=== PATIENT | female | born 1950 | race Caucasian/White ===

== ENCOUNTER 2024-02-06 18:29 | Inpatient (IN) ==
[2024-02-06 19:11] LABS: Basophils # (auto) 0.04 K/uL (0.00-0.20); Basophils % (auto) 0.4 %; Eosinophils # (auto) 0.36 K/uL (0.00-0.50); Eosinophils % (auto) 3.4 %; Hematocrit (blood only) 39.6 % (37.0-47.0); Hemoglobin 13.5 g/dl (12.0-16.0); Immature Granulocytes # (auto) 0.05 K/uL (0.01-0.20); Immature Granulocytes % (auto) 0.5 %; Lymphocytes # (auto) 1.52 K/uL (1.20-3.40); Lymphocytes % (auto) 14.4 %; Mean Corpuscular Hemoglobin 32.1 pg (25.0-34.0); Mean Corpuscular Hgb Conc 34.1 g/dL (32.0-36.0); Mean Corpuscular Volume 94.3 fL (80.0-100.0); Mean Platelet Volume 9.2 fL (9.4-12.4); Monocytes # (auto) 0.76 K/uL (0.11-0.59); Monocytes % (auto) 7.2 %; Neutrophils % (auto) 74.1 %; Platelet Count 380 K/uL (130-400); RDW Coefficient of Variation 12.5 % (11.5-14.5); RDW Standard Deviation 43.1 fL (36.4-46.3); White Blood Count 10.53 K/ul (4.8-10.8)
[2024-02-06 19:28] LABS: Albumin Globulin Ratio 1.1 (0.9-2); Albumin Level 4.5 gm/dl (3.4-5.0); BUN Creatinine Ratio 20.8 (10-20); Bilirubin,Total 0.4 mg/dl (0.2-1.0); Calcium 10.8 mg/dl (8.6-10.3); Creatinine Clr Calc Pharmacy 16.3 ml/min; Potassium 4.4 mmol/L (3.5-5.1); Total Protein 8.5 gm/dl (6.0-8.3)
[2024-02-06 19:34] LABS: Troponin I High Sensitivity 14.8 pg/ml (0-14)
[2024-02-06 19:38] LABS: Partial Thromboplastin Time 26 Seconds (21-31); Prothrombin Time 10.4 Seconds (9.0-12.0)
--- NOTE | 2024-02-06 21:18 | Emergency Department Note ---
Impression & Plan Chest pain, Elevated troponin ED Provider Note NAME: ZACH FLOOD AGE: 73 SEX: F : 1950 ARRIVES VIA: Walk-In INFORMANT: Patient, Family member ED PROVIDER(S): Jalen Lau MD CHIEF COMPLAINT: Chest pain MEDICAL DECISION MAKING: Patient presents due to concern for chest pains. IV was established and blood work was obtained. Patient did have an EKG and troponin obtained but given the patient's symptoms and prior history of EGD patient was initially treated with famotidine and Maalox. Patient's blood work minimal white count hemoglobin and platelet count. The patient's kidney function with creatinine 1.49. Troponin is elevated 14.8. Patient's chest x-ray shows likely emphysematous changes. EKG without signs of overt ischemia. Patient did feel improved after the GI medications; however, given the patient's elevated troponin and age he is not low risk and would benefit from further evaluation monitoring and potential testing. Patient was ordered a full dose aspirin after review of the patient's troponin. I did speak with the on-call hospitalist Dr. Mars and the patient was admitted to medicine service. Discussion w/ other healthcare providers: Dr. Mars inpatient medicine service Prior /Outside records reviewed: None Differential diagnosis: Cardiac ischemia, aortic dissection, pulmonary embolism, pneumothorax, pneumonia, pericarditis, myocarditis, GERD, cholecystitis, pancreatitis, musculoskeletal, as well as other pathologies were considered. Diagnostics, as interpreted by me: ECG: Sinus, rate of 69, normal intervals, normal axis no ST elevations T wave version in V3. Cardiac monitoring: An order was placed for continuous cardiac monitoring. The monitor shows a rate of 72 with sinus rhythm. Patient was placed on pulse oximetry Medical decision rules: Heart score Imaging studies: I informally interpreted the patient's chest x-ray does not show obvious pneumonia with formal report to follow. HPI: Patient presents due to concern for chest pains. The patient states this began several days ago. No reported exertional symptoms but centralized symptoms will move up into the chest. Patient denies any history of reflux but has had prior issues with getting "meat stuck in my throat." Patient states that she did have a prior endoscopy and did have a dilatation procedure. Patient states that she is swallowing appropriately at this time. The patient does not take anything for symptoms at home. No reported vomiting. Patient denies any leg swelling or calf pain no history of DVT or PE. PAST MEDICAL HISTORY: See Below PAST SURGICAL HISTORY: See Below SOCIAL HISTORY: See Below HOME MEDICATIONS: See Below ALLERGIES: See Below VITALS: See Below PHYSICAL EXAMINATION: GENERAL: NAD, non-toxic. Thin in appearance. EYE EXAM: Normal conjunctiva. PERRL, no anisocoria and EOM's grossly intact w/o pain. OROPHARYNX: Moist mucus membranes, grossly normal dentition. NECK: Trachea midline, no stridor. Supple, no nuchal rigidity, no adenopathy, non-tender. No signs of meningismus. FROM of the neck with good chin to chest and neck extension. LUNGS: Clear to auscultation. Normal chest wall mechanics. HEART: NSR, no MRG. ABDOMEN: Abdomen soft, non-tender, no masses, no rebound or guarding. BACK: No CVA TTP. SKIN: No rashes and no bruising. UPPER EXTREMITIES: Upper extremities are grossly normal. LOWER EXTREMITIES: Grossly normal, no edema. Negative Homans' sign bilaterally. NEURO EXAM: A&O x3, cranial nerves II-XII grossly intact, normal speech, moves all 4 extremities. Past Med/Surg History Problem List (Updated 02/08/24 @ 16:06 by Jalen Lau MD) Elevated troponin (Acute) Chest pain (Acute) Severe protein-calorie malnutrition Acute metabolic encephalopathy UTI (urinary tract infection) History of migraine headaches Substernal chest pain Elevated troponin Acute kidney injury ANJEL positive Abnormal chest CT Multiple pulmonary nodules Bronchiectasis Pulmonary nodule Abnormal chest x-ray Asthma-COPD overlap syndrome COPD (chronic obstructive pulmonary disease) Pulmonary hypertension COPD with emphysema Exertional shortness of breath Dysphagia GERD (gastroesophageal reflux disease) Food impaction of esophagus (Acute) Social History Smoking Status: Never smoker Tobacco Type: Cigarettes Hx Alcohol Use: Yes Alcohol type: wine Hx Substance Use: No Preferred Language: Khmer Communication Ability: Impaired Air Conditioning Supervisor Required: No Beliefs That Will Affect Care: None Current Living Situation: Alone Current Living Situation Comment: Patient stated that passed 3 years ago and she has lived alone Other Information That Helps Us Care for You: No Feels Safe at Home: Yes Safety Concerns: Feels Safe At This Time Assistive Devices: Denture - Upper, Denture - Lower, Glasses and Hearing Aid - Right Allergies Allergies Allergy/AdvReac Type Severity Reaction Status Date / Time ciprofloxacin [From Cipro] Allergy Rash Verified 11/10/23 13:52 Penicillins Allergy Rash Verified 11/10/23 13:52 Sulfa (Sulfonamide Allergy Rash Verified 11/10/23 13:52 Antibiotics) Home Meds Home Medications Medication Instructions Recorded Confirmed metoprolol succinate 100 mg 100 mg PO DAILY 03/16/21 11/10/23 tablet,extended release 24 hr sumatriptan succinate 100 mg tablet 0 mg PO .COMPLEX PRN Migraine 03/16/21 11/10/23 Headache nitrofurantoin 100 mg PO DAILY 08/02/23 11/10/23 monohydrate/macrocrystals 100 mg capsule (Macrobid) Previous Rx's Medication Instructions Recorded Flutter Valve #1 ea 11/15/23 budesonide 160 mcg-glycopyr 9 2 inh inhalation BID #10.7 grams 11/15/23 mcg-formot 4.8 mcg/actuation HFA inhaler (Breztri Aerosphere) doxycycline hyclate 100 mg capsule 100 mg PO BID 5 days #10 caps 11/15/23 guaifenesin 600 mg tablet, 600 mg PO BID PRN congestion #60 11/15/23 extended release 12 hr (Mucinex) tabs Results & Data (ED) Vital Signs Vital Signs - 24 hr 02/06/24 18:38 02/06/24 20:29 02/06/24 20:29 Temperature 36.5 C 36.7 C Temperature Source Oral Oral Pulse Rate 72 63 Pulse Rate [Apical] 69 Pulse Rhythm Regular Pulse Strength Normal Respiratory Rate 18 16 Respiratory Effort / Characteristics Non-Labored Spontaneous Respiratory Depth Normal Respiratory Pattern Regular Blood Pressure 157/83 H Blood Pressure [Left Arm] 152/92 H Blood Pressure Mean 107 Blood Pressure Mean [Left Arm] 112 Blood Pressure Position Sitting Pulse Oximetry 100 100 Oxygen Delivery Method Room Air Room Air Sepsis Recent Fever Within 48 Hours No Sepsis New/Unexplained Change in Mental Status No Sepsis Action Taken by Nursing No Action Required Home Medications Current Medication List: was personally reviewed by me Laboratory Data Attestation: I reviewed the patient's lab results. 02/07/24 05:30 02/08/24 05:49 Lab Results 02/06/24 02/07/24 02/07/24 Range/Units 18:58 05:30 08:30 WBC 10.53 8.91 (4.8-10.8) K/ul RBC 4.20 3.67 L (4.20-5.40) M/uL Hgb 13.5 11.7 L (12.0-16.0) g/dl Hct 39.6 35.2 L (37.0-47.0) % MCV 94.3 95.9 (80.0-100.0) fL MCH 32.1 31.9 (25.0-34.0) pg MCHC 34.1 33.2 (32.0-36.0) g/dL RDW Std Deviation 43.1 44.2 (36.4-46.3) fL RDW Coeff of Michael 12.5 12.6 (11.5-14.5) % Plt Count 380 323 (130-400) K/uL MPV 9.2 L 9.1 L (9.4-12.4) fL Immature Gran % (Auto) 0.5 1.0 % Neut % (Auto) 74.1 70.7 % Lymph % (Auto) 14.4 15.7 % [place] % (Auto) 7.2 9.2 % Eos % (Auto) 3.4 2.8 % Baso % (Auto) 0.4 0.6 % Neut # (Auto) 7.80 H 6.30 (1.40-6.50) K/uL Lymph # (Auto) 1.52 1.40 (1.20-3.40) K/uL [place] # (Auto) 0.76 H 0.82 H (0.11-0.59) K/uL Eos # (Auto) 0.36 0.25 (0.00-0.50) K/uL Baso # (Auto) 0.04 0.05 (0.00-0.20) K/uL Immature Gran # (Auto) 0.05 0.09 (0.01-0.20) K/uL PT 10.4 (9.0-12.0) Seconds INR 1.0 (0.9-1.1) APTT 26 (21-31) Seconds PTT Ratio 1.0 Sodium 138 137 (136-145) mmol/L Potassium 4.4 3.7 (3.5-5.1) mmol/L Chloride 102 103 (98-107) mmol/L Carbon Dioxide 26 22 (21-32) mmol/L Anion Gap 10 12 H (3-11) BUN 31 H 29 H (6-23) mg/dl Creatinine 1.49 H 1.36 H (0.6-1.2) mg/dl Est Cr Clr Drug Dosing 16.3 17.5 ml/min eGFR 36.41 40.62 BUN/Creatinine Ratio 20.8 H 21.3 H (10-20) Glucose 109 H 121 H (70-99(Fasting)) mg/dl Calcium 10.8 H 9.5 (8.6-10.3) mg/dl Phosphorus 2.0 L (2.5-4.9) mg/dl Magnesium 1.9 (1.7-2.4) mg/dl Total Bilirubin 0.4 (0.2-1.0) mg/dl AST 15 (13-39) U/L ALT 8 (7-52) U/L Alkaline Phosphatase 97 (34-104) U/L Troponin I High Sens 14.8 H 13.5 (0-14) pg/ml Total Protein 8.5 H (6.0-8.3) gm/dl Albumin 4.5 4.0 (3.4-5.0) gm/dl Globulin 4.0 (2.5-4.0) gm/dl Albumin/Globulin Ratio 1.1 (0.9-2) Urine Color Yellow Urine Appearance Cloudy A (Clear) Urine pH 5.0 (4.5-7.5) Ur Specific [place] 1.017 (1.000-1.030) Urine Protein 1+ H (Negative) Urine Glucose (UA) Negative (Negative) Urine Ketones Trace H (Negative) Urine Blood Trace H (Negative) Urine Nitrite Positive A (Negative) Urine Bilirubin Negative (Negative) Urine Urobilinogen Negative (Negative) Ur Leukocyte Esterase 2+ H (Negative) Urine WBC (Auto) 21-50 H (0-5) /hpf Urine RBC (Auto) 0-2 (0-2) /hpf U Hyaline Cast (Auto) 3-5 H (0-2) /lpf U Epithel Cells (Auto) 0-2 (0-2) /hpf Urine Bacteria (Auto) 4+ H (None Seen) Administered Medications Fluticasone Furoate (Fluticasone Furoate 200mcg 14 Puffs/Inhaler) 1 puffs INH DAILY JANET Stop: 03/08/24 08:59 Last Admin: 02/08/24 09:55 Dose: 1 puffs Documented By: Admin: 02/07/24 09:15 Dose: 1 puffs Documented By: AM Ceftriaxone Sodium (Rocephin) 1,000 mg in 50 mls @ 100 mls/hr IV Q24H JANET Stop: 02/12/24 09:29 Last Infusion: 02/08/24 12:50 Dose: Infused Documented By: Admin: 02/08/24 11:26 Dose: 100 mls/hr Documented By: Infusion: 02/07/24 10:45 Dose: Infused Documented By: Admin: 02/07/24 10:10 Dose: 100 mls/hr Documented By: AM Metoprolol Succinate (Metoprolol Succ 50mg Ext Rel Tab) 100 mg PO DAILY JANET Stop: 03/08/24 08:59 Last Admin: 02/08/24 09:55 Dose: Not Given Documented By: Admin: 02/07/24 09:11 Dose: 100 mg Documented By: AM Olanzapine (Olanzapine 2.5 Mg Tab) 2.5 mg PO HS JANET Stop: 03/08/24 20:59 Last Admin: 02/07/24 21:50 Dose: 2.5 mg Documented By: [facility] Pantoprazole Sodium (Pantoprazole 40 Mg Tab) 40 mg PO QAM JANET Stop: 03/08/24 08:59 Last Admin: 02/08/24 09:55 Dose: 40 mg Documented By: Admin: 02/07/24 09:12 Dose: 40 mg Documented By: AM Umeclidinium/Vilanterol (Umeclidinium/Vilanterol 62.5/25mcg 7 Puffs/Inhaler) 1 puffs INH DAILY JANET Stop: 03/08/24 08:59 Last Admin: 02/08/24 09:55 Dose: 1 puffs Documented By: Admin: 02/07/24 09:15 Dose: 1 puffs Documented By: AM Discontinued Medications Al Hydrox/Mg Hydrox/Simethicone (Aluminum/Magnesium Susp 30 Ml Udc) 30 ml PO NOW STA Stop: 02/06/24 21:17 Last Admin: 02/06/24 21:21 Dose: 30 ml Documented By: LISA Haloperidol Lactate (Haloperidol Lactate 5 Mg/Ml 1 Ml Vial) 2 mg IM NOW STA Stop: 02/07/24 12:09 Last Admin: 02/07/24 12:15 Dose: 2 mg Documented By: AM Haloperidol Lactate (Haloperidol Lactate 5 Mg/Ml 1 Ml Vial) 2 mg IM NOW STA Stop: 02/07/24 12:50 Last Admin: 02/07/24 12:50 Dose: 2 mg Documented By: AM Famotidine (Pepcid 20mg Iv Push) 20 mg in 5 mls @ 2.5 mls/min IV NOW STA Stop: 02/06/24 21:17 Last Admin: 02/06/24 21:21 Dose: 2.5 mls/min Documented By: LISA Sodium Chloride (Nss) 1,000 mls @ 125 mls/hr IV .Q8H JANET Stop: 02/07/24 06:59 Last Infusion: 02/07/24 12:24 Dose: Infused Documented By: Admin: 02/07/24 04:05 Dose: 125 mls/hr Documented By: [facility] Sodium Chloride (Nss) 500 mls @ 80 mls/hr IV .Q6H15M JANET Stop: 02/07/24 14:14 Last Admin: 02/07/24 13:51 Dose: Not Given Documented By: AM Pantoprazole Sodium (Pantoprazole 40 Mg Tab) 40 mg PO NOW STA Stop: 02/06/24 22:56 Last Admin: 02/06/24 23:28 Dose: 40 mg Documented By: LISA Risperidone (Risperidone 0.25 Mg Tab) 0.25 mg PO ONE ONE Stop: 02/07/24 07:49 Last Admin: 02/07/24 09:57 Dose: 0.25 mg Documented By: AM Imaging Data Radiologist's Impression: Chest X-Ray 02/06/24 18:43 Exam(s): XR CXR 1 VIEW EXAM: XR Chest, 1 View CLINICAL HISTORY: : CHEST PAIN VOMITING X 3 DAYS DYSPHAGIA WITH SOLIDS LIKE MEAT X 3 DAYS TECHNIQUE: Frontal view of the chest. COMPARISON: June 10, 2023 FINDINGS: Lungs: The lungs are hyperinflated with sparse in coarse interstitial markings throughout both lungs consistent with emphysema. There are scattered bilateral upper lobe scarring, unchanged. No new infiltrate identified. Pleural space: Unremarkable. No pneumothorax. Heart: Unremarkable. No cardiomegaly. Mediastinum: Unremarkable. Normal mediastinal contour. Bones/joints: Unremarkable. No acute fracture. Upper abdomen: There is no pneumoperitoneum under the diaphragm. IMPRESSION: The lungs are hyperinflated with sparse in coarse interstitial markings throughout both lungs consistent with emphysema. There are scattered bilateral upper lobe scarring, unchanged. No new infiltrate identified. Electronically signed by: Ryder Adhikari MD 02/06/24 20:32 PM Discharge Plan Visit Data Chief Complaint: Chest Pain Stated Complaint: CHEST PAIN, SOB ED Provider: Jalen Lau Discharge Problem: Chest pain, Elevated troponin Patient Disposition: Admitted As Inpatient Discharge Instructions Interventions: ED Discharge Assessment Last Done: 02/06/24 23:49 Discharge Problem: Chest pain Qualifiers: Chest pain type: unspecified Qualified Code(s): R07.9 - Chest pain, unspecified
[2024-02-06] MEDS: FAMOTIDINE 20MG IV PUSH 20 MG/5 ML SYR IV STA (21:21)
[2024-02-06] MEDS: ALUMINUM/MAGNESIUM SUSP 30 ML UDC PO STA (21:21)
[2024-02-06] MEDS ORDERED: ALUMINUM/MAGNESIUM SUSP 30 ML UDC PO PRN (22:55)
--- NOTE | 2024-02-06 22:57 | History & Physical Report ---
Date of Service February 06, 2024 Assessment & Plan (1) Substernal chest pain: (2) Acute kidney injury: (3) Elevated troponin: (4) Multiple pulmonary nodules: (5) Asthma-COPD overlap syndrome: (6) GERD (gastroesophageal reflux disease): (7) History of migraine headaches: Plan Epigastric to substernal chest pain/elevated troponin/GERD- Patient reports symptoms resolved with administration of Maalox Elevated troponin/hypertension- The patient will be admitted to telemetry for serial cardiac enzymes, serial EKG's, cardiac rhythm monitoring Initial troponin 14.8, with follow-up pending, likely demand ischemia in the setting of acute kidney injury EKG shows normal sinus rhythm at [address]-T changes Continue metoprolol succinate 100 mg daily Acute kidney injury- Creatinine 1.49, with base 0.86 Placed on NSS at 125 mL/h x 1 L Repeat laboratories in the a.m. GERD/dysphagia- Symptoms were significantly improved with the addition of Maalox and famotidine IV Add pantoprazole 40 mg p.o. now and then every morning Maalox every 6 hours as needed Protein calorie malnutrition- Recommend addition of nutritional shakes at least twice a day History of Present Illness Chief Complaint: The patient presents to the emergency department with epigastric to substernal chest discomfort persistent and worsening over the past 6 days. Primary Care Provider: Kelly Mcfadden DO The patient is a 73-year-old female with a past medical history including multiple pulmonary nodules, asthma-COPD overlap syndrome, pulmonary hypertension, dysphagia, GERD, food impaction of esophagus, hypertension and migraine. She presents to the emergency department with 6 days of persistently worsening epigastric to substernal chest discomfort. She was given Maalox in the emergency department along with famotidine IV. She reports that her symptoms have completely resolved with the liquid that she took in the ED. She is referred for evaluation for admission due to chest discomfort symptoms, and elevated troponin and elevated creatinine. Allergies Allergy/AdvReac Type Severity Reaction Status Date / Time ciprofloxacin [From Cipro] Allergy Rash Verified 11/10/23 13:52 Penicillins Allergy Rash Verified 11/10/23 13:52 Sulfa (Sulfonamide Allergy Rash Verified 11/10/23 13:52 Antibiotics) Home Medications Medication Instructions Recorded Confirmed Type metoprolol succinate 100 mg 100 mg PO DAILY 03/16/21 11/10/23 History tablet,extended release 24 hr sumatriptan succinate 100 mg tablet 0 mg PO .COMPLEX PRN Migraine 03/16/21 11/10/23 History Headache nitrofurantoin 100 mg PO DAILY 08/02/23 11/10/23 History monohydrate/macrocrystals 100 mg capsule (Macrobid) Flutter Valve #1 ea 11/15/23 11/15/23 Rx budesonide 160 mcg-glycopyr 9 2 inh inhalation BID #10.7 grams 11/15/23 11/15/23 Rx mcg-formot 4.8 mcg/actuation HFA inhaler (Breztri Aerosphere) doxycycline hyclate 100 mg capsule 100 mg PO BID 5 days #10 caps 11/15/23 Rx guaifenesin 600 mg tablet, 600 mg PO BID PRN congestion #60 11/15/23 11/15/23 Rx extended release 12 hr (Mucinex) tabs Past Med/Surg History Problem List (Updated 02/07/24 @ 00:28 by Chepe Mckeon MD) History of migraine headaches Substernal chest pain Elevated troponin Acute kidney injury ANJEL positive Abnormal chest CT Multiple pulmonary nodules Bronchiectasis Pulmonary nodule Abnormal chest x-ray Asthma-COPD overlap syndrome COPD (chronic obstructive pulmonary disease) Pulmonary hypertension COPD with emphysema Exertional shortness of breath Dysphagia GERD (gastroesophageal reflux disease) Food impaction of esophagus (Acute) Social History Smoking Status: Never smoker Tobacco Type: Cigarettes Preferred Language: Guyanese Feels Safe at Home: Yes Review of Systems Review of Systems: The patient denies palpitations, shortness of breath, dyspnea on exertion, cough, lower extremity swelling, sore throat, fevers, chills, sweats, nausea, vomiting, diarrhea , constipation, abdominal pain, pelvic pain, blood in urine or stool, dysuria, urinary frequency or urgency, lightheadedness, dizziness, headache, memory loss, loss of consciousness, rash, abnormal bruising or bleeding, imbalance, focal or generalized weakness, numbness or tingling in arms or legs, generalized arthralgias or myalgias, back or neck pain, or night sweats. The review of systems is otherwise negative other than for that already noted above, and at least 10 systems have been reviewed. Physical Exam Physical Exam: The patient is awake, alert and oriented 3, very thin appearing, normocephalic and atraumatic, lying in bed and in no acute distress. HEENT--PERRL, EOMI, mucous membranes and oropharynx mildly dry. Neck--supple. No JVD. No bruits. Thyroid normal, trachea midline, no adenopathy. Heart--normal S1 and S2. No murmurs, rubs or gallops. Lungs--clear bilaterally, no respiratory distress, no accessory muscle use. Abdomen--normal bowel sounds and soft. Nontender. Nondistended, no hernias or masses, no organomegaly. Extremities-- No edema. Dermatologic--normal skin turgor, normal color, no abnormal lymph nodes, no rash. Neurologic--cranial nerves II through XII grossly intact. Rheumatologic--normal range of motion. Psychiatric--normal affect. Results & Data Results & Data Vital Signs (Past 12 Hours) Vital Signs Temp Pulse Pulse Resp BP BP Pulse Ox 02/06/24 22:00 63 16 133/78 100 02/06/24 20:29 63 02/06/24 20:29 36.7 C 69 16 152/92 H 100 02/06/24 18:38 36.5 C 72 18 157/83 H 100 O2 Del Method 02/06/24 22:00 Room Air 02/06/24 20:29 02/06/24 20:29 Room Air 02/06/24 18:38 Room Air Laboratory Results Laboratory Results WBC 10.53 K/ul (4.8-10.8) 02/06/24 18:58 RBC 4.20 M/uL (4.20-5.40) 02/06/24 18:58 Hgb 13.5 g/dl (12.0-16.0) 02/06/24 18:58 Hct 39.6 % (37.0-47.0) 02/06/24 18:58 MCV 94.3 fL (80.0-100.0) 02/06/24 18:58 MCH 32.1 pg (25.0-34.0) 02/06/24 18:58 MCHC 34.1 g/dL (32.0-36.0) 02/06/24 18:58 RDW Std Deviation 43.1 fL (36.4-46.3) 02/06/24 18:58 RDW Coeff of Michael 12.5 % (11.5-14.5) 02/06/24 18:58 Plt Count 380 K/uL (130-400) 02/06/24 18:58 MPV 9.2 fL (9.4-12.4) L 02/06/24 18:58 Immature Gran % (Auto) 0.5 % 02/06/24 18:58 Neut % (Auto) 74.1 % 02/06/24 18:58 Lymph % (Auto) 14.4 % 02/06/24 18:58 [place] % (Auto) 7.2 % 02/06/24 18:58 Eos % (Auto) 3.4 % 02/06/24 18:58 Baso % (Auto) 0.4 % 02/06/24 18:58 Neut # (Auto) 7.80 K/uL (1.40-6.50) H 02/06/24 18:58 Lymph # (Auto) 1.52 K/uL (1.20-3.40) 02/06/24 18:58 [place] # (Auto) 0.76 K/uL (0.11-0.59) H 02/06/24 18:58 Eos # (Auto) 0.36 K/uL (0.00-0.50) 02/06/24 18:58 Baso # (Auto) 0.04 K/uL (0.00-0.20) 02/06/24 18:58 Immature Gran # (Auto) 0.05 K/uL (0.01-0.20) 02/06/24 18:58 PT 10.4 Seconds (9.0-12.0) 02/06/24 18:58 INR 1.0 (0.9-1.1) 02/06/24 18:58 APTT 26 Seconds (21-31) 02/06/24 18:58 PTT Ratio 1.0 02/06/24 18:58 Sodium 138 mmol/L (136-145) 02/06/24 18:58 Potassium 4.4 mmol/L (3.5-5.1) 02/06/24 18:58 Chloride 102 mmol/L (98-107) 02/06/24 18:58 Carbon Dioxide 26 mmol/L (21-32) 02/06/24 18:58 Anion Gap 10 (3-11) 02/06/24 18:58 BUN 31 mg/dl (6-23) H 02/06/24 18:58 Creatinine 1.49 mg/dl (0.6-1.2) H 02/06/24 18:58 Est Cr Clr Drug Dosing 16.3 ml/min 02/06/24 18:58 eGFR 36.41 02/06/24 18:58 BUN/Creatinine Ratio 20.8 (10-20) H 02/06/24 18:58 Glucose 109 mg/dl (70-99(Fasting)) H 02/06/24 18:58 Calcium 10.8 mg/dl (8.6-10.3) H 02/06/24 18:58 Total Bilirubin 0.4 mg/dl (0.2-1.0) 02/06/24 18:58 AST 15 U/L (13-39) 02/06/24 18:58 ALT 8 U/L (7-52) 02/06/24 18:58 Alkaline Phosphatase 97 U/L (34-104) 02/06/24 18:58 Troponin I High Sens 14.8 pg/ml (0-14) H 02/06/24 18:58 Total Protein 8.5 gm/dl (6.0-8.3) H 02/06/24 18:58 Albumin 4.5 gm/dl (3.4-5.0) 02/06/24 18:58 Globulin 4.0 gm/dl (2.5-4.0) 02/06/24 18:58 Albumin/Globulin Ratio 1.1 (0.9-2) 02/06/24 18:58 Code Status & VTE Plan Code Status Full code VTE Prophylaxis Plan VTE Prophylaxis will be ordered: Yes PG Care Time/CCT Total # of Minutes Spent Total Time Spent with Patient: Total time spent is greater than 50% in coordination of care (as documented) at patient's floor/unit and/or counseling patient: Coding Level of Care Code 41307 INT INP/OBS CARE 3/75MIN Diagnoses Substernal chest pain R07.2 Acute kidney injury N17.9 Elevated troponin R79.89 Multiple pulmonary nodules R91.8 Asthma-COPD overlap syndrome J44.89 GERD (gastroesophageal reflux disease) K21.9 History of migraine headaches Z86.69
[2024-02-06] MEDS: PANTOprazole 40 MG TAB PO STA (23:28)
[2024-02-07] MEDS ORDERED: SUMAtriptan succinate 100 MG TAB PO PRN (00:51)
[2024-02-07] MEDS: SODIUM CHLORIDE 0.9% 1,000 ML IV SCH (04:05)
[2024-02-07 06:08] LABS: Basophils # (auto) 0.05 K/uL (0.00-0.20); Basophils % (auto) 0.6 %; Eosinophils # (auto) 0.25 K/uL (0.00-0.50); Eosinophils % (auto) 2.8 %; Hematocrit (blood only) 35.2 % (37.0-47.0); Hemoglobin 11.7 g/dl (12.0-16.0); Immature Granulocytes # (auto) 0.09 K/uL (0.01-0.20); Lymphocytes % (auto) 15.7 %; Mean Corpuscular Hemoglobin 31.9 pg (25.0-34.0); Mean Corpuscular Hgb Conc 33.2 g/dL (32.0-36.0); Mean Corpuscular Volume 95.9 fL (80.0-100.0); Mean Platelet Volume 9.1 fL (9.4-12.4); Monocytes # (auto) 0.82 K/uL (0.11-0.59); Monocytes % (auto) 9.2 %; Neutrophils % (auto) 70.7 %; Platelet Count 323 K/uL (130-400); RDW Coefficient of Variation 12.6 % (11.5-14.5); RDW Standard Deviation 44.2 fL (36.4-46.3); Red Blood Count 3.67 M/uL (4.20-5.40); White Blood Count 8.91 K/ul (4.8-10.8)
[2024-02-07 06:22] LABS: BUN Creatinine Ratio 21.3 (10-20); Calcium 9.5 mg/dl (8.6-10.3); Creatinine Clr Calc Pharmacy 17.5 ml/min; Magnesium 1.9 mg/dl (1.7-2.4); Potassium 3.7 mmol/L (3.5-5.1)
[2024-02-07 06:30] LABS: Troponin I High Sensitivity 13.5 pg/ml (0-14)
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
[2024-02-07 08:56] LABS: Appearance Urine Cloudy (Clear); Bacteria Urine Automated 4+ (None Seen); Bilirubin Urine Negative (Negative); Blood Urine Trace (Negative); Color Urine Yellow; Epithelial Cell Urine Auto 0-2 /hpf (0-2); Glucose Urine UA Negative (Negative); Ketones Urine Trace (Negative); Leukocyte Esterase Urine 2+ (Negative); Nitrite Urine Positive (Negative); Protein Urine 1+ (Negative); RBC Urine Automated 0-2 /hpf (0-2); Specific Gravity Urine 1.017 (1.000-1.030); Urobilinogen Urine Negative (Negative); WBC Urine Automated 21-50 /hpf (0-5)
[2024-02-07] MEDS: METOPROLOL SUCC 50MG EXT REL TAB PO SCH (09:11)
[2024-02-07] MEDS: PANTOprazole 40 MG TAB PO SCH (09:12)
[2024-02-07] MEDS: UMECLIDINIUM/VILANTEROL 62.5/25MCG 7 PUFFS/INHALER INH SCH (09:15)
[2024-02-07] MEDS: FLUTICASONE FUROATE 200MCG 14 PUFFS/INHALER INH SCH (09:15)
[2024-02-07] MEDS: risperiDONE 0.25 MG TAB PO ONE (09:57)
[2024-02-07] MEDS: cefTRIAXone SODIUM 1,000 MG/50 ML BAG IV SCH (10:10)
[2024-02-07] MEDS: HALOPERIDOL LACTATE 5 MG/ML 1 ML VIAL IM STA ×2 (12:15→12:50)
[2024-02-07] MEDS ORDERED: HALOPERIDOL LACTATE 5 MG/ML 1 ML VIAL IM PRN ×2 (12:50→17:52)
[2024-02-07] MEDS ORDERED: LORazepam 2 MG/1 ML VIAL IV PRN (12:50)
--- NOTE | 2024-02-07 12:55 | Hospitalist Progress Note ---
Date of Service February 07, 2024 Assessment & Plan (1) Acute metabolic encephalopathy: Plan: based on the patient's son's account she likely has an underlying dementia. current altered MS likely due to UTI. she was extremely agitated earlier today, combative, pulling at IVs, attempting to hit staff, etc. this necessitated the use of restraints, multiple doses of antipsychotic, etc. fortunately, as the day went on, her agitation subsided; she remained confused, but we were able to remove the soft limb restraints late in the day. will schedule zyprexa 2.5mg at HS with haldol IM prn for refractory agitation. (2) UTI (urinary tract infection): Plan: u/a highly suspicious for such. start rocephin 1gm daily. await culture. (3) Substernal chest pain: Plan: has not complained of such throughout the day today. HS troponin scantly elevated at admission. by report her pain subsided in the ER following GERD meds (Maalox and famotidine IV). noted a prior history of food impaction in her record. monitor. (4) Acute kidney injury: Plan: peak Cr 1.49. trending down s/p IV fluids overnight. repeat BMP am. (5) Elevated troponin: Plan: scant elevation of 14.8 (just above upper cut-off). this is unlikely to represent ACS. likely myocardial demand ischemia in setting of #2. (6) Multiple pulmonary nodules: Plan: prior chest CT with such. has seen outpatient pulmonary for this. (7) Asthma-COPD overlap syndrome: Plan: no flare at this time (8) GERD (gastroesophageal reflux disease): Plan: cont PPI daily (9) History of migraine headaches: Plan: none at the present time (10) Severe protein-calorie malnutrition: Plan: BMI only 12.5 very poor appetite per son appetite loss likely due to underlying dementia; can't exclude other causes (pulmonary disease, etc) check nutritional labs, TSH, etc in am Plan change observation status to full admission status danielle Ro updated at bedside today Admission and Anticipated Discharge Date Admission Date: February 06, 2024 Subjective saw patient twice today first visit was this AM by report had eaten a good breakfast patient became increasingly more confused and agitated as the morning went on risperdal 0.25mg po x 1 given with little improvement in symptoms pt's son was visiting late morning patient became increasingly more upset, wanting to get out of bed, take her monitor leads off, etc. I had ordered 2mg of haldol IM x 1 when I came to the floor to see Mrs Augustin she was out of her room with 3 staff members trying to gently guide her back to her room she had gotten the haldol about 10 minutes prior she was screaming and yelling, resisting staff to return to her room we ultimately got her back to her room and administered an additional 2mg of IM haldol we placed her in b/l soft limb restraints as patient was grabbing staff members arms/hands, trying to bite staff members, and was kicking her legs & attempting to hit staff members after the additional haldol and placement of soft limb restraints on her arms/wrists Mrs Augustin calmed down a staff member stayed with her at bedside as I ordered 1:1 observation patient continued to calm down through the afternoon she ultimately ate dinner this evening I visited her a 2nd time late in the day - she was resting in bed with eyes closed a staff member was present at bedside patient briefly woke up - was much more calm, cooperative, even smiled still confused, but very calm I had spoken with the pt's son, Jayjay, early afternoon he has been living with Mrs Augustin he reports 1-2 years of progressive memory loss he also reports that she has poor appetite and has lost weight over time she has been resistant to various interventions at her home she continues to drive a car Review of Systems Review of Systems: Unobtainable due to cognitive status Physical Exam Physical Exam: gen - very thin, cachectic, agitated, confused, yelling mouth - MMM neck - no JVD heart - RRR, s1 s2 lungs - CTA b/l abd - soft NT ND BS+ ext - thin, pulses feet 2+ b/l psych - agitated, confused, oriented to person only Results & Data Results & Data Vital Signs (Past 12 Hours) Vital Signs Temp Pulse Pulse Resp BP Pulse Ox O2 Del Method 02/07/24 11:50 36.6 C 67 17 119/65 96 Room Air 02/07/24 08:02 78 02/07/24 08:00 36.7 C 77 18 140/76 97 Room Air 02/07/24 07:40 76 02/07/24 04:56 36.7 C 73 18 113/70 95 Room Air Laboratory Results Laboratory Results - last 24 hr 02/07/24 02/07/24 05:30 08:30 WBC 8.91 RBC 3.67 L Hgb 11.7 L Hct 35.2 L MCV 95.9 MCH 31.9 MCHC 33.2 RDW Std Deviation 44.2 RDW Coeff of Michael 12.6 Plt Count 323 MPV 9.1 L Immature Gran % (Auto) 1.0 Neut % (Auto) 70.7 Lymph % (Auto) 15.7 Ida % (Auto) 9.2 Eos % (Auto) 2.8 Baso % (Auto) 0.6 Neut # (Auto) 6.30 Lymph # (Auto) 1.40 Ida # (Auto) 0.82 H Eos # (Auto) 0.25 Baso # (Auto) 0.05 Immature Gran # (Auto) 0.09 Sodium 137 Potassium 3.7 Chloride 103 Carbon Dioxide 22 Anion Gap 12 H BUN 29 H Creatinine 1.36 H Est Cr Clr Drug Dosing 17.5 eGFR 40.62 BUN/Creatinine Ratio 21.3 H Glucose 121 H Calcium 9.5 Phosphorus 2.0 L Magnesium 1.9 Troponin I High Sens 13.5 Albumin 4.0 Urine Color Yellow Urine Appearance Cloudy A Urine pH 5.0 Ur Specific [place] 1.017 Urine Protein 1+ H Urine Glucose (UA) Negative Urine Ketones Trace H Urine Blood Trace H Urine Nitrite Positive A Urine Bilirubin Negative Urine Urobilinogen Negative Ur Leukocyte Esterase 2+ H Urine WBC (Auto) 21-50 H Urine RBC (Auto) 0-2 U Hyaline Cast (Auto) 3-5 H U Epithel Cells (Auto) 0-2 Urine Bacteria (Auto) 4+ H PG Care Time/CCT Total # of Minutes Spent Total Time Spent with Patient: Total time spent is greater than 50% in coordination of care (as documented) at patient's floor/unit and/or counseling patient: Coding Level of Care Code 39485 SUB INP/OBS CARE 3/50MIN Diagnoses Acute metabolic encephalopathy G93.41 UTI (urinary tract infection) N39.0 Substernal chest pain R07.2 Acute kidney injury N17.9 Elevated troponin R79.89 Multiple pulmonary nodules R91.8 Asthma-COPD overlap syndrome J44.89 GERD (gastroesophageal reflux disease) K21.9 History of migraine headaches Z86.69 Severe protein-calorie malnutrition E43
[2024-02-07] MEDS: SODIUM CHLORIDE 0.9% 500 ML IV SCH (13:51)
--- NOTE | 2024-02-07 14:17 | Electrocardiogram Report ---
Test Reason : Blood Pressure : */* mmHG Vent. Rate : 69 BPM Atrial Rate : 69 BPM P-R Int : 100 ms QRS Dur : 68 ms QT Int : 380 ms P-R-T Axes : 86 81 77 degrees QTcB Int : 407 ms Sinus rhythm with short PA Otherwise normal ECG No previous ECGs available Confirmed by Jose Emmanuel ([id number]) on 02/07/2024 2:17:21 PM Referred By: Confirmed By: Jose Emmanuel
--- NOTE | 2024-02-07 17:10 | XRay Report ---
Exam(s): XR CXR 1 VIEW EXAM: XR Chest, 1 View CLINICAL HISTORY: : CHEST PAIN VOMITING X 3 DAYS DYSPHAGIA WITH SOLIDS LIKE MEAT X 3 DAYS TECHNIQUE: Frontal view of the chest. COMPARISON: June 10, 2023 FINDINGS: Lungs: The lungs are hyperinflated with sparse in coarse interstitial markings throughout both lungs consistent with emphysema. There are scattered bilateral upper lobe scarring, unchanged. No new infiltrate identified. Pleural space: Unremarkable. No pneumothorax. Heart: Unremarkable. No cardiomegaly. Mediastinum: Unremarkable. Normal mediastinal contour. Bones/joints: Unremarkable. No acute fracture. Upper abdomen: There is no pneumoperitoneum under the diaphragm. IMPRESSION: The lungs are hyperinflated with sparse in coarse interstitial markings throughout both lungs consistent with emphysema. There are scattered bilateral upper lobe scarring, unchanged. No new infiltrate identified. Electronically signed by: Ryder Adhikari MD 02/06/24 20:32 PM
[2024-02-07] MEDS: OLANZAPINE 2.5 MG TAB PO SCH (21:50)
[2024-02-08 06:34] LABS: BUN Creatinine Ratio 18.8 (10-20); Calcium 8.9 mg/dl (8.6-10.3); Creatinine Clr Calc Pharmacy 21.3 ml/min
[2024-02-08 06:49] LABS: Thyroid Stimulating Hormone 1.743 uIu/ml (0.300-4.500)
--- NOTE | 2024-02-08 10:12 | Hospitalist Consultation ---
Date of Consultation February 08, 2024 Assessment & Plan (1) UTI (urinary tract infection): (2) Severe protein-calorie malnutrition: (3) Acute metabolic encephalopathy: History of Present Illness Attending Physician: Rolly Anaya MD Allergies Allergy/AdvReac Type Severity Reaction Status Date / Time ciprofloxacin [From Cipro] Allergy Rash Verified 11/10/23 13:52 Penicillins Allergy Rash Verified 11/10/23 13:52 Sulfa (Sulfonamide Allergy Rash Verified 11/10/23 13:52 Antibiotics) Home Medications Medication Instructions Recorded Confirmed Type metoprolol succinate 100 mg 100 mg PO DAILY 03/16/21 11/10/23 History tablet,extended release 24 hr sumatriptan succinate 100 mg tablet 0 mg PO .COMPLEX PRN Migraine 03/16/21 11/10/23 History Headache nitrofurantoin 100 mg PO DAILY 08/02/23 11/10/23 History monohydrate/macrocrystals 100 mg capsule (Macrobid) Flutter Valve #1 ea 11/15/23 11/15/23 Rx budesonide 160 mcg-glycopyr 9 2 inh inhalation BID #10.7 grams 11/15/23 11/15/23 Rx mcg-formot 4.8 mcg/actuation HFA inhaler (Breztri Aerosphere) doxycycline hyclate 100 mg capsule 100 mg PO BID 5 days #10 caps 11/15/23 11/15/23 Rx guaifenesin 600 mg tablet, 600 mg PO BID PRN congestion #60 11/15/23 11/15/23 Rx extended release 12 hr (Mucinex) tabs Patient History Social History Smoking Status: Never smoker Tobacco Type: Cigarettes Hx Alcohol Use: Yes Alcohol type: wine Hx Substance Use: No Preferred Language: Yakut Communication Ability: Impaired Railroad Hand Required: No Beliefs That Will Affect Care: None Current Living Situation: Alone Current Living Situation Comment: Patient stated that passed 3 years ago and she has lived alone Other Information That Helps Us Care for You: No Feels Safe at Home: Yes Safety Concerns: Feels Safe At This Time Assistive Devices: Denture - Upper, Denture - Lower, Glasses and Hearing Aid - Right Review of Systems Review of Systems: CONST: Negative for fever, body aches and chills. HENT: Negative for neck pain/stiffness, headache, congestion, sore throat, swelling. EYES: Negative for discharge/pain or vision changes. RESP: Negative for cough/hemoptysis and shortness of breath. CV: Negative chest pain, difficulty breathing, palpitations. ABD: Negative pain, nausea, vomiting. : Negative increase frequency, dysuria, blood in urine or stool. MUSC: Negative for muscle aches, edema. SKIN: Negative rash, lesions/sores. NEURO: Negative headache, dizziness, weakness. Physical Exam Physical Exam: GENERAL APPEARANCE NAD, activity normal for age, well developed/ well nourished, no cyanosis, pallor, or diaphoresis. EYES lids/conjunctiva normal. EARS/NOSE/THROAT Mucous membranes moist, nares normal, lips/teeth normal uvula midline without oral pharyngeal erythema, exudate or swelling TMs normal bilaterally. No lymphangitis/lymphedema. HEAD/NECK normocephalic atraumatic, no facial trauma, neck is supple. RESPIRATORY respiratory effort normal, speaks in full sentences, no tripod position, no accessory muscle use. Lungs clear to auscultation without rhonchi, wheezes, rales CARDIAC Regular rate and rhythm, no edema. ABDOMINAL Soft, ND/NT. No evidence of fluid wave. No pulsatile masses on exam, rebound tenderness, Rudolph sign or pain over Mcburney's point. MUSCLES/EXTREMITIES No abnormal range of motion, no swelling. SKIN Warm, pink and dry. No rashes, dermatoses, petechiae or lesions. NEUROLOGICAL Speech is clear and appropriate. Normal level of consciousness. Gait and coordination are normal. 5/5 strength in all extremities. PSYCH Normal mood and affect. Judgement/competence is appropriate Results & Data Results & Data Vital Signs (Past 12 Hours) Vital Signs Temp Pulse Resp BP Pulse Ox O2 Del Method 02/08/24 07:35 124/71 02/08/24 07:02 35.9 C L 50 L 18 90/42 L 100 Room Air 02/08/24 03:31 36.5 C 61 18 150/80 H 100 Room Air Laboratory Results 02/07/24 08:30 Urine Culture - Preliminary Urine,Clean Catch Escherichia coli 02/08/24 05:49 Sodium 139 Potassium 4.0 Chloride 108 H Carbon Dioxide 23 Anion Gap 8 BUN 21 Creatinine 1.12 Est Cr Clr Drug Dosing 21.3 eGFR 51.28 BUN/Creatinine Ratio 18.8 Glucose 87 Calcium 8.9 Vitamin B12 > 1500 H TSH 1.743 Diagnostic Findings Chest X-Ray 02/06/24 18:43 Exam(s): XR CXR 1 VIEW EXAM: XR Chest, 1 View CLINICAL HISTORY: : CHEST PAIN VOMITING X 3 DAYS DYSPHAGIA WITH SOLIDS LIKE MEAT X 3 DAYS TECHNIQUE: Frontal view of the chest. COMPARISON: June 10, 2023 FINDINGS: Lungs: The lungs are hyperinflated with sparse in coarse interstitial markings throughout both lungs consistent with emphysema. There are scattered bilateral upper lobe scarring, unchanged. No new infiltrate identified. Pleural space: Unremarkable. No pneumothorax. Heart: Unremarkable. No cardiomegaly. Mediastinum: Unremarkable. Normal mediastinal contour. Bones/joints: Unremarkable. No acute fracture. Upper abdomen: There is no pneumoperitoneum under the diaphragm. IMPRESSION: The lungs are hyperinflated with sparse in coarse interstitial markings throughout both lungs consistent with emphysema. There are scattered bilateral upper lobe scarring, unchanged. No new infiltrate identified. Electronically signed by: Ryder Adhikari MD 02/06/24 20:32 PM Medications Administered Home Medications Medication Instructions Recorded Confirmed Last Taken metoprolol succinate 100 mg 100 mg PO DAILY 03/16/21 11/10/23 03/20/21 tablet,extended release 24 hr sumatriptan succinate 100 mg tablet 0 mg PO .COMPLEX PRN Migraine 03/16/21 11/10/23 03/20/21 Headache nitrofurantoin 100 mg PO DAILY 08/02/23 11/10/23 Unknown monohydrate/macrocrystals 100 mg capsule (Macrobid) Flutter Valve #1 ea 11/15/23 11/15/23 Unknown budesonide 160 mcg-glycopyr 9 2 inh inhalation BID #10.7 grams 11/15/23 11/15/23 Unknown mcg-formot 4.8 mcg/actuation HFA inhaler (Breztri Aerosphere) doxycycline hyclate 100 mg capsule 100 mg PO BID 5 days #10 caps 11/15/23 11/15/23 Unknown guaifenesin 600 mg tablet, 600 mg PO BID PRN congestion #60 11/15/23 11/15/23 Unknown extended release 12 hr (Mucinex) tabs Active Medications Generic Name Dose Route Start Last Admin Trade Name Freq PRN Reason Stop Dose Admin Fluticasone Furoate 1 puffs 02/07/24 09:00 02/07/24 09:15 Fluticasone Furoate 200mcg 14 Puffs/Inhaler INH 03/08/24 08:59 1 puffs DAILY JANET Administration Ceftriaxone Sodium 1,000 mg in 50 mls @ 100 mls/hr 02/07/24 09:30 02/07/24 10:45 Rocephin IV 02/12/24 09:29 Infused Q24H JANET Infusion Metoprolol Succinate 100 mg 02/07/24 09:00 02/07/24 09:11 Metoprolol Succ 50mg Ext Rel Tab PO 03/08/24 08:59 100 mg DAILY JANET Administration Olanzapine 2.5 mg 02/07/24 21:00 02/07/24 21:50 Olanzapine 2.5 Mg Tab PO 03/08/24 20:59 2.5 mg HS JANET Administration Pantoprazole Sodium 40 mg 02/07/24 09:00 02/07/24 09:12 Pantoprazole 40 Mg Tab PO 03/08/24 08:59 40 mg QAM JANET Administration Umeclidinium/Vilanterol 1 puffs 02/07/24 09:00 02/07/24 09:15 Umeclidinium/Vilanterol 62.5/25mcg 7 Puffs/Inhaler INH 03/08/24 08:59 1 puffs DAILY JANET Administration PG Care Time/CCT Total # of Minutes Spent Total Time Spent with Patient: Total time spent is greater than 50% in coordination of care (as documented) at patient's floor/unit and/or counseling patient: Coding Diagnoses UTI (urinary tract infection) N39.0 Severe protein-calorie malnutrition E43 Acute metabolic encephalopathy G93.41
--- NOTE | 2024-02-08 19:48 | Hospitalist Progress Note ---
Date of Service February 08, 2024 Assessment & Plan (1) Acute metabolic encephalopathy: Plan: likely 2nd to UTI. MUCH improved today. no further agitation. no need for ongoing use of restraints. will cont zyprexa 2.5mg at bedtime; tolerating this well. (2) UTI (urinary tract infection): Plan: 2nd e.coli. cont rocephin, day #2 of such. follow culture to completion. (3) Substernal chest pain: Plan: by report had such at time of ER presentation (was combination of upper abd pain & substernal chest pain). relieved with pepcid/maalox. she has prior h/o food impaction of the esophagus. no complaints of chest or abd pain today. tolerating diet without issue. cont PPI. troponin scantly elevated 14.8 at time of admission. (4) Acute kidney injury: Plan: peak Cr 1.49. now 1.1. today. BMP in am. (5) Elevated troponin: Plan: scant elevation of 14.8 (just above upper cut-off). this is unlikely to represent ACS. likely myocardial demand ischemia in setting of #2. (6) Multiple pulmonary nodules: Plan: prior chest CT with such. has seen outpatient pulmonary for this. (7) Asthma-COPD overlap syndrome: Plan: no flare at this time (8) GERD (gastroesophageal reflux disease): Plan: cont PPI daily (9) History of migraine headaches: Plan: none at the present time (10) Severe protein-calorie malnutrition: Plan: BMI only 12.5 very poor appetite per son appetite loss likely due to underlying dementia; can't exclude other causes (pulmonary disease, etc) add MVI add Boost Plan danielle Ro updated at bedside yesterday son Viet who lives out of state updated by phone today PT eval completed earlier today - rehab advised Viet made aware Admission and Anticipated Discharge Date Admission Date: February 07, 2024 Subjective overnight no issues slept thru the night w/o agitation did not require restraints eating well today - no agitation; some pleasant confusion, but otherwise doing ok patient was resting comfortably in bed during my visit denied any complaints Review of Systems Review of Systems: CV- no chest pain pulm- no dyspnea or cough GI- no abd pain or N/V Physical Exam Physical Exam: gen - very thin, cachectic, resting comfortably in bed, pleasant, no agitation mouth - MMM neck - no JVD heart - RRR, s1 s2, no murmur lungs - CTA b/l abd - soft NT ND BS+ ext - thin, pulses feet 2+ b/l Results & Data Results & Data Vital Signs (Past 12 Hours) Vital Signs Temp Pulse Resp BP Pulse Ox O2 Del Method 02/08/24 14:44 36.6 C 73 16 110/66 99 Room Air 02/08/24 09:50 58 L 114/64 Laboratory Results Laboratory Results - last 24 hr 02/08/24 05:49 Sodium 139 Potassium 4.0 Chloride 108 H Carbon Dioxide 23 Anion Gap 8 BUN 21 Creatinine 1.12 Est Cr Clr Drug Dosing 21.3 eGFR 51.28 BUN/Creatinine Ratio 18.8 Glucose 87 Calcium 8.9 Vitamin B1 Pending Vitamin B12 > 1500 H TSH 1.743 Diagnostic Findings urine cx - e. coli PG Care Time/CCT Total # of Minutes Spent Total Time Spent with Patient: Total time spent is greater than 50% in coordination of care (as documented) at patient's floor/unit and/or counseling patient: Coding Level of Care Code 50419 SUB INP/OBS CARE 2/35MIN Diagnoses Acute metabolic encephalopathy G93.41 UTI (urinary tract infection) N39.0 Substernal chest pain R07.2 Acute kidney injury N17.9 Elevated troponin R79.89 Multiple pulmonary nodules R91.8 Asthma-COPD overlap syndrome J44.89 GERD (gastroesophageal reflux disease) K21.9 History of migraine headaches Z86.69 Severe protein-calorie malnutrition E43
[2024-02-08] MEDS: THIAMINE HCL 100 MG TAB PO SCH (20:28)
[2024-02-09 07:15] LABS: Calcium 8.7 mg/dl (8.6-10.3)
[2024-02-09 07:21] LABS: BUN Creatinine Ratio 25.5 (10-20)
[2024-02-09] MEDS: cephALEXin 250 MG CAP PO SCH (08:48)
[2024-02-09] MEDS ORDERED: cephALEXin 500 MG CAP PO SCH (09:00)
[2024-02-09] MEDS: INFLUENZA VACC TS2024-25(65y+)/PF (IIV3) 0.5mL Syr IM ONE (12:58)
[2024-02-09 15:19] LABS: Influenza A virus by PCR Negative (Neg); Influenza B virus by PCR Negative (Neg); RSV by PCR Negative (Neg); SARS CoV2 RNA(COVID-19) Ceph NEGATIVE (Negative)
--- NOTE | 2024-02-09 18:33 | Hospitalist Progress Note ---
Date of Service February 09, 2024 Assessment & Plan (1) Acute metabolic encephalopathy: Plan: likely 2nd to UTI. resolved no further agitation. no need for ongoing use of restraints. will cont zyprexa 2.5mg at bedtime for now; tolerating this well without side effects. (2) UTI (urinary tract infection): Plan: 2nd e.coli. pansensitive. s/p 2 days of IV rocephin - stop such today. change to keflex 250mg BID x 5 days. (3) Substernal chest pain: Plan: by report had such at time of ER presentation (was combination of upper abd pain & substernal chest pain). relieved with pepcid/maalox. she has prior h/o food impaction of the esophagus. no complaints of chest or abd pain today. tolerating diet without issue. cont PPI. troponin scantly elevated 14.8 at time of admission. (4) Acute kidney injury: Plan: peak Cr 1.49. now 0.98. resolved (5) Elevated troponin: Plan: scant elevation of 14.8 (just above upper cut-off). this is unlikely to represent ACS. likely myocardial demand ischemia in setting of #2. (6) Multiple pulmonary nodules: Plan: prior chest CT with such. has seen outpatient pulmonary for this. (7) Asthma-COPD overlap syndrome: Plan: no flare at this time (8) GERD (gastroesophageal reflux disease): Plan: cont PPI daily (9) History of migraine headaches: Plan: none at the present time (10) Severe protein-calorie malnutrition: Plan: BMI only 12.5 very poor appetite per son appetite loss likely due to underlying dementia; can't exclude other causes (pulmonary disease, etc) add MVI cont Boost Plan danielle Ro updated at bedside today son Viet who lives out of state updated by phone yesterday although rehab was recommended I don't think patient will ultimately be agreeable will have social work discuss this with pt & her sons if no rehab then home tomorrow ?? Admission and Anticipated Discharge Date Admission Date: February 07, 2024 Subjective no events overnight no agitation no significant confusion eating well last stool - 02/05 patient resting comfortably in bed during the visit son was at bedside we discussed that rehab was advised by PT/OT patient not very excited about going to rehab but willing to talk with case management about such Review of Systems Review of Systems: gen - no fevers or chills cv - no cp pulm - no cough, no dyspnea GI - no abd pain or N/V Physical Exam Physical Exam: gen - very thin, cachectic, resting comfortably in bed, pleasant, no agitation, oriented today mouth - MMM neck - no JVD heart - RRR, s1 s2, no murmur lungs - CTA b/l abd - soft NT ND BS+ ext - thin, pulses feet 2+ b/l, no edema psych - a/o x 3 HENT - hearing impaired Results & Data Results & Data Vital Signs (Past 12 Hours) Vital Signs Temp Pulse Pulse Resp BP Pulse Ox O2 Del Method 02/09/24 15:23 36.7 C 69 18 111/69 100 Room Air 02/09/24 12:55 36.7 C 77 18 116/76 94 Room Air 02/09/24 11:30 34.6 C L 74 14 136/70 93 Room Air 02/09/24 06:58 36.8 C 65 17 136/70 100 Room Air Laboratory Results Laboratory Results - last 24 hr 02/09/24 02/09/24 06:28 14:00 Sodium 141 Potassium 4.0 Chloride 109 H Carbon Dioxide 24 Anion Gap 8 BUN 25 H Creatinine 0.98 Est Cr Clr Drug Dosing 27.0 eGFR 60.19 BUN/Creatinine Ratio 25.5 H Glucose 88 Calcium 8.7 SARS-CoV-2 (PCR) NEGATIVE Influenza Type A (PCR) Negative Influenza Type B (PCR) Negative RSV (RT-PCR) Negative PG Care Time/CCT Total # of Minutes Spent Total Time Spent with Patient: Total time spent is greater than 50% in coordination of care (as documented) at patient's floor/unit and/or counseling patient: Coding Level of Care Code 47557 SUB INP/OBS CARE 2/35MIN Diagnoses Acute metabolic encephalopathy G93.41 UTI (urinary tract infection) N39.0 Substernal chest pain R07.2 Acute kidney injury N17.9 Elevated troponin R79.89 Multiple pulmonary nodules R91.8 Asthma-COPD overlap syndrome J44.89 GERD (gastroesophageal reflux disease) K21.9 History of migraine headaches Z86.69 Severe protein-calorie malnutrition E43
[2024-02-09] MEDS: POLYETHYLENE (MIRALAX) 17 GM PACK PO SCH (21:18)
[2024-02-10] MEDS: LOPERAMIDE HCL 2 MG CAP PO STA (01:33)
[2024-02-10] MEDS: CEROVITE ADV FORMULA TAB PO SCH (12:19)
[2024-02-10] MEDS: ADVANCED PROBIOTIC 625 MG CAPSULE PO SCH (12:19)
[2024-02-10] MEDS: ACETAMINOPHEN 325 MG TAB PO PRN (17:09)
--- NOTE | 2024-02-10 17:40 | CT Scan Report ---
EXAM: CT Abdomen and Pelvis Without Intravenous Contrast INDICATION: Weight loss. Abdominal pain. Diarrhea. TECHNIQUE: Axial computed tomography images of the abdomen and pelvis without intravenous contrast. Sagittal and coronal reformatted images were created and reviewed. This CT exam was performed using one or more of the following dose reduction techniques: automated exposure control, adjustment of the mA and/or kV according to patient size, and/or use of iterative reconstruction technique. COMPARISON: Limited comparison made to CT chest including the upper abdomen 08/24/2023 FINDINGS: Limitations: None. Lung bases: 3 mm noncalcified subpleural right lower lobe pulmonary nodule series 2 image 2. Mild scarring in the lung bases. Pleural space: No basilar pleural effusion noted. Heart: Increase small basilar pericardial effusion. Mediastinum: No abnormality noted. ABDOMEN: Liver: Low attenuation focus in the liver consistent with a hepatic cyst. No follow-up is necessary. Gallbladder and bile ducts: No calcified stones or surrounding fluid. Pancreas: No pancreatic mass, calcification, inflammation or ductal dilation noted. Spleen: No significant abnormality noted. Adrenals: No significant abnormality noted. Kidneys and ureters: Simple left renal cyst/s. No simple cyst follow-up necessary. Right kidney appears normal. No renal stone, hydronephrosis or perinephric fluid. There is a punctate nonobstructing stone in each kidney. No hydronephrosis. No perinephric fluid. No urinary gas. Stomach and bowel: Moderate amounts of stool throughout the colon relatively sparing the left side. There are left colonic diverticula noted. No diverticulitis. No intestinal obstruction. There is no inflammatory process identified. PELVIS: Appendix: Well seen and appears normal. Bladder: There is a bubble of air in the urinary bladder. Mild bladder thickening noted. No stones. Reproductive: There is a course 1.4 x 1.1 cm left adnexal calcification. ABDOMEN and PELVIS: Intraperitoneal space: No free air. No significant fluid collection. Bones/joints: Degenerative changes noted throughout the spine. No acute osseous abnormality seen. Soft tissues: No significant abnormality noted. Vasculature: No abdominal aortic aneurysm. Lymph nodes: No pathologically enlarged lymph nodes. IMPRESSION: 1. Mild cystitis. 2. Moderate amounts of stool throughout the colon and left colonic diverticulosis. No diverticulitis. 3. 3 mm subpleural right lower lobe pulmonary nodule. Fleischner Society Guidelines (MacKristinahojeancarlos, et al. Radiology 2017; 284(1):228-43) suggest that no follow-up is necessary for patients with a low or high risk of malignancy. 4. Dense left adnexal calcification is nonspecific and could reflect inspissated barium and a diverticula. It could reflect calcifications in the ovary. Consider baseline pelvic ultrasound if there is no prior pelvic CT to compare. ACT 112: Negative or not required by law. Electronically signed by Shelly Cavanaugh 02-10-2024 5:40 PM
--- NOTE | 2024-02-10 20:18 | Hospitalist Progress Note ---
Date of Service February 10, 2024 Assessment & Plan (1) Acute metabolic encephalopathy: Plan: 2nd to UTI. resolved no further agitation. no need for ongoing use of restraints. will cont zyprexa 2.5mg at bedtime for now; tolerating this well without side effects. (2) UTI (urinary tract infection): Plan: 2nd e.coli. pansensitive. s/p 2 days of IV rocephin then changed to keflex 250mg BID x 5 days. day #2 of keflex. (3) Substernal chest pain: Plan: by report had such at time of ER presentation (was combination of upper abd pain & substernal chest pain). relieved with pepcid/maalox. she has prior h/o food impaction of the esophagus. no complaints of chest or abd pain today. tolerating diet without issue. cont PPI. troponin scantly elevated 14.8 at time of admission. CT a/p today without acute findings. (4) Acute kidney injury: Plan: peak Cr 1.49. resolved (5) Elevated troponin: Plan: scant elevation of 14.8 (just above upper cut-off). this is unlikely to represent ACS. likely myocardial demand ischemia in setting of #2. (6) Multiple pulmonary nodules: Plan: prior chest CT with such. has seen outpatient pulmonary for this. (7) Asthma-COPD overlap syndrome: Plan: no flare at this time (8) GERD (gastroesophageal reflux disease): Plan: cont PPI daily (9) History of migraine headaches: Plan: none at the present time (10) Severe protein-calorie malnutrition: Plan: BMI only 12.5 very poor appetite per son appetite loss likely due to underlying dementia; can't exclude other causes (pulmonary disease, etc) added MVI cont Boost CT a/p today with a L adnexal mass this will need dedicated pelvic u/s could be contributing to FTT (11) Adnexal mass: Plan: left will inform patient/sons outpatient pelvic u/s Plan diarrhea - could be overflow as the CT today shows copious formed stool check a c diff but I don't think we are dealing with such danielle Ro updated at bedside yesterday son Viet who lives out of state - left message for him this evening although rehab was recommended patient not agreeable will return home with danielle Ro home tomorrow? Admission and Anticipated Discharge Date Admission Date: February 07, 2024 Subjective no events no agitation doesn't like the food - blames the food for not eating robustly rather than a lack of appetite had diarrhea this am but none since no abd pain or N/V feels tired today Review of Systems Review of Systems: cv - no cp pulm - no dyspnea neuro - no dizziness Physical Exam Physical Exam: gen - very thin, cachectic, resting comfortably in bed, no agitation mouth - MMM neck - no JVD heart - RRR, s1 s2, no murmur lungs - CTA b/l abd - soft NT ND BS+, no mass, no HSM ext - thin, pulses feet 2+ b/l, no edema HENT - hearing impaired (baseline) Results & Data Results & Data Vital Signs (Past 12 Hours) Vital Signs Temp Pulse Resp BP BP Pulse Ox O2 Del Method 02/10/24 14:50 36.6 C 67 12 125/79 95 Room Air 02/10/24 08:45 36.6 C 70 18 107/67 99 Room Air 02/10/24 08:30 Room Air Diagnostic Findings Abdomen/Pelvis CT 02/10/24 15:02 EXAM: CT Abdomen and Pelvis Without Intravenous Contrast INDICATION: Weight loss. Abdominal pain. Diarrhea. TECHNIQUE: Axial computed tomography images of the abdomen and pelvis without intravenous contrast. Sagittal and coronal reformatted images were created and reviewed. This CT exam was performed using one or more of the following dose reduction techniques: automated exposure control, adjustment of the mA and/or kV according to patient size, and/or use of iterative reconstruction technique. COMPARISON: Limited comparison made to CT chest including the upper abdomen 08/24/2023 FINDINGS: Limitations: None. Lung bases: 3 mm noncalcified subpleural right lower lobe pulmonary nodule series 2 image 2. Mild scarring in the lung bases. Pleural space: No basilar pleural effusion noted. Heart: Increase small basilar pericardial effusion. Mediastinum: No abnormality noted. ABDOMEN: Liver: Low attenuation focus in the liver consistent with a hepatic cyst. No follow-up is necessary. Gallbladder and bile ducts: No calcified stones or surrounding fluid. Pancreas: No pancreatic mass, calcification, inflammation or ductal dilation noted. Spleen: No significant abnormality noted. Adrenals: No significant abnormality noted. Kidneys and ureters: Simple left renal cyst/s. No simple cyst follow-up necessary. Right kidney appears normal. No renal stone, hydronephrosis or perinephric fluid. There is a punctate nonobstructing stone in each kidney. No hydronephrosis. No perinephric fluid. No urinary gas. Stomach and bowel: Moderate amounts of stool throughout the colon relatively sparing the left side. There are left colonic diverticula noted. No diverticulitis. No intestinal obstruction. There is no inflammatory process identified. PELVIS: Appendix: Well seen and appears normal. Bladder: There is a bubble of air in the urinary bladder. Mild bladder thickening noted. No stones. Reproductive: There is a course 1.4 x 1.1 cm left adnexal calcification. ABDOMEN and PELVIS: Intraperitoneal space: No free air. No significant fluid collection. Bones/joints: Degenerative changes noted throughout the spine. No acute osseous abnormality seen. Soft tissues: No significant abnormality noted. Vasculature: No abdominal aortic aneurysm. Lymph nodes: No pathologically enlarged lymph nodes. IMPRESSION: 1. Mild cystitis. 2. Moderate amounts of stool throughout the colon and left colonic diverticulosis. No diverticulitis. 3. 3 mm subpleural right lower lobe pulmonary nodule. Fleischner Society Guidelines (MacMahon, et al. Radiology 2017; 284(1):228-43) suggest that no follow-up is necessary for patients with a low or high risk of malignancy. 4. Dense left adnexal calcification is nonspecific and could reflect inspissated barium and a diverticula. It could reflect calcifications in the ovary. Consider baseline pelvic ultrasound if there is no prior pelvic CT to compare. ACT 112: Negative or not required by law. Electronically signed by Shelly Cavanaugh 02-10-2024 5:40 PM PG Care Time/CCT Total # of Minutes Spent Total Time Spent with Patient: Total time spent is greater than 50% in coordination of care (as documented) at patient's floor/unit and/or counseling patient: Coding Level of Care Code 49742 SUB INP/OBS CARE 2/35MIN Diagnoses Acute metabolic encephalopathy G93.41 UTI (urinary tract infection) N39.0 Substernal chest pain R07.2 Acute kidney injury N17.9 Elevated troponin R79.89 Multiple pulmonary nodules R91.8 Asthma-COPD overlap syndrome J44.89 GERD (gastroesophageal reflux disease) K21.9 History of migraine headaches Z86.69 Severe protein-calorie malnutrition E43 Adnexal mass N94.89
[2024-02-11 07:48] VITALS: RESP 16; TEMP 97.7; O2SAT 99
[2024-02-11 09:30] LABS: Hematocrit (blood only) 33.4 % (37.0-47.0); Mean Corpuscular Hemoglobin 32.2 pg (25.0-34.0); Mean Corpuscular Hgb Conc 32.9 g/dL (32.0-36.0); Mean Corpuscular Volume 97.7 fL (80.0-100.0); Mean Platelet Volume 8.9 fL (9.4-12.4); Platelet Count 260 K/uL (130-400); RDW Coefficient of Variation 12.9 % (11.5-14.5); RDW Standard Deviation 45.7 fL (36.4-46.3); Red Blood Count 3.42 M/uL (4.20-5.40); White Blood Count 7.26 K/ul (4.8-10.8)
[2024-02-11 09:42] LABS: BUN Creatinine Ratio 26.9 (10-20); Calcium 9.2 mg/dl (8.6-10.3); Creatinine Clr Calc Pharmacy 28.5 ml/min; Potassium 4.1 mmol/L (3.5-5.1)
[2024-02-11 15:07] VITALS: BP 100/56; PULSE 61
--- NOTE | 2024-02-11 15:09 | Discharge Summary ---
Discharge Summary Date of Service February 11, 2024 Principal Dx & Hospital Course #1 = Principal Diagnosis (1) Acute metabolic encephalopathy: 2nd to UTI. resolved no further agitation. no need for ongoing use of restraints. will cont zyprexa 2.5mg at bedtime for now; tolerating this well without side effects. (2) UTI (urinary tract infection): 2nd e.coli. pansensitive. s/p 2 days of IV rocephin then changed to keflex 250mg BID x 5 days. day #2 of keflex. (3) Substernal chest pain: by report had such at time of ER presentation (was combination of upper abd pain & substernal chest pain). relieved with pepcid/maalox. she has prior h/o food impaction of the esophagus. no complaints of chest or abd pain today. tolerating diet without issue. cont PPI. troponin scantly elevated 14.8 at time of admission. CT a/p today without acute findings. (4) Acute kidney injury: peak Cr 1.49. resolved (5) Elevated troponin: scant elevation of 14.8 (just above upper cut-off). this is unlikely to represent ACS. likely myocardial demand ischemia in setting of #2. (6) Multiple pulmonary nodules: prior chest CT with such. has seen outpatient pulmonary for this. (7) Asthma-COPD overlap syndrome: no flare at this time (8) GERD (gastroesophageal reflux disease): cont PPI daily (9) History of migraine headaches: none at the present time (10) Severe protein-calorie malnutrition: BMI only 12.5 very poor appetite per son appetite loss likely due to underlying dementia; can't exclude other causes (pulmonary disease, etc) added MVI cont Boost CT a/p today with a L adnexal mass this will need dedicated pelvic u/s could be contributing to FTT (11) Adnexal mass: left will inform patient/sons outpatient pelvic u/s Plan diarrhea - could be overflow as the CT today shows copious formed stool check a c diff but I don't think we are dealing with such danielle Ro updated at bedside yesterday son Viet who lives out of state - left message for him this evening although rehab was recommended patient not agreeable will return home with danielle Ro home tomorrow? Admission HPI Per Admitting Provider The patient is a 73-year-old female with a past medical history including multiple pulmonary nodules, asthma-COPD overlap syndrome, pulmonary hypertension, dysphagia, GERD, food impaction of esophagus, hypertension and migraine. She presents to the emergency department with 6 days of persistently worsening epigastric to substernal chest discomfort. She was given Maalox in the emergency department along with famotidine IV. She reports that her symptoms have completely resolved with the liquid that she took in the ED. She is referred for evaluation for admission due to chest discomfort symptoms, and elevated troponin and elevated creatinine. Discharge Exam gen - very thin, cachectic, resting comfortably in bed, no agitation mouth - MMM neck - no JVD heart - RRR, s1 s2, no murmur lungs - CTA b/l abd - soft NT ND BS+, no mass, no HSM ext - thin, pulses feet 2+ b/l, no edema HENT - hearing impaired (baseline) Discharge Plan Discharge Items Patient Disposition: Home - Self-Care Reason For Visit: UTI, ENCEPHALOPATHY Discharge Diagnosis: 1. urinary tract infection - improving 2. encephalopathy/delirium (confusion) - due to #1 - significantly improved 3. underweight 4. constipation 5. left-sided ovarian cyst - outpatient pelvic ultrasound needed 6. reflux disease 7. history of COPD 8. abdominal pain - likely combination of UTI, constipation, reflux disease Activity: Resume your previous activity Activity Comment: gradually increase activities as tolerated Non-emergency contact: Primary Care Provider Call non-emergency contact if: you have any medication questions, your symptoms worsen and you have a fever Follow-up/Referrals: Kelly Zelaya DO [Primary Care Provider] - (5-7 days ) Diet: Regular Addtl Attending Provider Instructions: Mrs Augustin, Ru were hospitalized due to chest/upper abdominal pain which was subsequently followed by severe confusion and discovery of a urinary tract infection. Your CT scan of the abdomen/pelvis did not show a specific reason for the abdominal pain (large amount of stool seen, however). However, the abdominal discomfort may have been due to constipation, reflux disease, and/or the urinary tract infection. You received medicine for the confusion, antibiotics for the urinary infection, and medicine for reflux disease. You got better with the above treatments. The confusion improved and your abdominal pain improved. We did not find any evidence of heart attack while here. Incidentally on your CT scan we found a left-sided ovarian cyst. See below. Recommendations - 1. For urinary tract infection - * cephalexin 250mg twice daily x 3 days, first dose TONIGHT 2. For reflux disease - * pantoprazole 40mg once daily -- take every morning on empty stomach 3. Take vitamin B1 (thiamine) 200mg twice daily x 30 days. You can start this any time in the next couple of days. I have sent a thiamine level off - it takes about a week to return. 4. Please REDUCE the dose of your metoprolol succinate from 100mg/day to 50mg/day. Your blood pressures were low on the 100mg dose. 5. Some of your records suggest you might be taking a medicine called "furosemide" which is a diuretic water pill. Please check your medicine bottles at home. If you find this medicine please place it ON HOLD until you see your family doctor in follow-up. You had no evidence of water retention during your stay. 6. If you have night-time agitation or confusion you can take olanzapine 2.5mg at bedtime as needed. I would try to NOT take this unless absolutely necessary as there are side effects from this medicine (excess sedation, dizziness, etc). 7. Talk to your family doctor about obtaining a pelvic ultrasound to look at the ovarian cyst, if desired. 8. Consider a once daily fiber supplement for your bowels. I would try to avoid using imodium as this is going to make the constipation worse. Follow-up - see your family doctor within 1 week Return to [facility] if - * you have fever over 100 degrees * you have worsening chest or abdominal pain * you have worsening confusion/agitation/delirium * you have vomiting * you are short of breath * any other concerns It was our pleasure to care for you! -Dr Anaya Pending Studies at Discharge: Yes Studies:: thiamine level Stand-Alone Forms: My [facility], Smoking Cessation Medications and DC Order Prescriptions: New cephalexin 250 mg Capsule 250 mg PO BID 3 Days Qty: 6 0RF thiamine HCl (vitamin B1) 100 mg Tablet 200 mg PO BID 30 Days Qty: 120 0RF olanzapine 2.5 mg Tablet 2.5 mg PO HS PRN (Reason: night-time confusion/agitation) Qty: 14 0RF pantoprazole 40 mg Tablet,Delayed Release (Dr/Ec) 40 mg PO QAM Qty: 30 5RF Continued guaifenesin [Mucinex] 600 mg tablet extended release 12hr 600 mg PO BID PRN (Reason: congestion) Qty: 60 1RF Rx Instructions: Take 1 tab p.o. twice a day for 7 days and then as needed Nickietri Aerosphere 160-9-4.8 mcg/actuation HFA aerosol inhaler 2 inh inhalation BID Qty: 10.7 5RF (DME) Flutter Valve Device See Rx Instructions .MEDSUPPLY Qty: 1 0RF Rx Instructions: Use it every 6 hours when awake. sumatriptan succinate 100 mg Tablet 0 mg PO .COMPLEX PRN (Reason: Migraine Headache) Rx Instructions: Take for severe migraine, no more than 2 in 24 hours Changed metoprolol succinate 100 mg Tablet Extended Release 24 Hr 50 mg PO DAILY Qty: 0 0RF Discontinued doxycycline hyclate 100 mg capsule 100 mg PO BID 5 Days Qty: 10 0RF nitrofurantoin monohyd/m-cryst [Macrobid] 100 mg capsule 100 mg PO DAILY Rx Instructions: must administer with a meal/food Discharge Orders: Discharge Order (Routine); Ordered 02/11/24 Ordered By: Rolly Anaya Admission Data Admit Date/Time: 02/07/24 15:50 Attending Provider: Rolly Anaya Admit Provider: Rolly Anaya Primary Care Provider: Kelly Zelaya Other Providers: Chepe Mckeon Hospital Stay Data Consultations 02/06/24 21:38 ED Decision to Admit Stat Diagnostic Imagining Performed 02/10/24 15:02 CT Abdomen and Pelvis [CT abd pelvis wo con] Routine Pending Results Patient Have Any Pending Studies at Discharge: Yes Discharge Instructions Given to Patient (Per Discharging Provider) Ru Perera were hospitalized due to chest/upper abdominal pain which was subsequently followed by severe confusion and discovery of a urinary tract infection. Your CT scan of the abdomen/pelvis did not show a specific reason for the abdominal pain (large amount of stool seen, however). However, the abdominal discomfort may have been due to constipation, reflux disease, and/or the urinary tract infection. You received medicine for the confusion, antibiotics for the urinary infection, and medicine for reflux disease. You got better with the above treatments. The confusion improved and your abdominal pain improved. We did not find any evidence of heart attack while here. Incidentally on your CT scan we found a left-sided ovarian cyst. See below. Recommendations - 1. For urinary tract infection - * cephalexin 250mg twice daily x 3 days, first dose TONIGHT 2. For reflux disease - * pantoprazole 40mg once daily -- take every morning on empty stomach 3. Take vitamin B1 (thiamine) 200mg twice daily x 30 days. You can start this any time in the next couple of days. I have sent a thiamine level off - it takes about a week to return. 4. Please REDUCE the dose of your metoprolol succinate from 100mg/day to 50mg/day. Your blood pressures were low on the 100mg dose. 5. Some of your records suggest you might be taking a medicine called "furosemide" which is a diuretic water pill. Please check your medicine bottles at home. If you find this medicine please place it ON HOLD until you see your family doctor in follow-up. You had no evidence of water retention during your stay. 6. If you have night-time agitation or confusion you can take olanzapine 2.5mg at bedtime as needed. I would try to NOT take this unless absolutely necessary as there are side effects from this medicine (excess sedation, dizziness, etc). 7. Talk to your family doctor about obtaining a pelvic ultrasound to look at the ovarian cyst, if desired. 8. Consider a once daily fiber supplement for your bowels. I would try to avoid using imodium as this is going to make the constipation worse. Follow-up - see your family doctor within 1 week Return to [facility] if - * you have fever over 100 degrees * you have worsening chest or abdominal pain * you have worsening confusion/agitation/delirium * you have vomiting * you are short of breath * any other concerns It was our pleasure to care for you! -Dr Anaya Coding Diagnoses Acute metabolic encephalopathy G93.41 UTI (urinary tract infection) N39.0 Substernal chest pain R07.2 Acute kidney injury N17.9 Elevated troponin R79.89 Multiple pulmonary nodules R91.8 Asthma-COPD overlap syndrome J44.89 GERD (gastroesophageal reflux disease) K21.9 History of migraine headaches Z86.69 Severe protein-calorie malnutrition E43 Adnexal mass N94.89
== END 2024-02-11 15:53 | disposition home or self-care (01) | DRG 689 ==
LOC: 4W 18:29 → ED 18:29 → SUATTDRO 22:54 → 4W 23:49 → 2E 02-07 03:48 → 3N 02-09 12:48

== ENCOUNTER 2024-02-24 09:00 | Inpatient (IN) ==
--- NOTE | 2024-02-24 09:34 | Emergency Department Note ---
Impression & Plan GAVIN (acute kidney injury) ADMIT ED Provider Note HPI: History obtained from patient and bedside RN via EMS report. The patient is a 73-year-old female who presents the emergency department with a chief complaint of upper abdominal pain. Patient tells me that the pain has been going on for multiple weeks but seem to be worse this morning when she woke up. Patient states that the pain was initially mild and then became more severe and therefore she came to the emergency department for assessment. Patient admits to some nausea but denies any vomiting. Patient is a fair historian but at times pauses during questioning and states "I am trying to remember". On arrival here to the ED the patient is hemodynamically stable, she appears to be in no acute distress on my initial evaluation and complains of pain mostly in the upper abdomen and mid abdomen. ROS: - Per HPI Differential Diagnosis: Acute gastritis, peptic ulcer disease, acute pancreatitis, acute coronary syndrome, acute cholecystitis, choledocholithiasis, small bowel obstruction, amongst other potential pathologies. *Outpatient medications and allergy history reviewed. 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 Lab work shows no leukocytosis, hemoglobin stable at 11.9, platelet count is normal, CMP does not show any evidence of critical electrolyte abnormalities however there is an acute kidney injury with a creatinine of 2.46 (baseline is normal) and BUN is also elevated at 35. Troponin is negative, EKG per my interpretation does not show any acute ischemic changes. Chest x-ray does not show any focal infiltrate per my interpretation. CT imaging of the abdomen pelvis was obtained that shows evidence of likely peptic ulcer disease which does correlate with the patient's exam and the location of her pain. There is also mention of possible pneumonia on CT imaging, patient denies any recent pneumonia symptoms on my exam and history. She has no fever or leukocytosis. Will forego antibiotic therapy and defer to the inpatient team for further management. She was started on a Protonix bolus and drip. Patient was given IV fluids for acute kidney injury. I discussed all the above findings with the on- call hospitalist, Dr. De Souza, and the patient was placed for admission in stable condition for further care. Consultants/Discussions held with other healthcare providers: -Hospitalist, Dr. De Souza Disposition discussion held by myself with: -Patient Diagnosis: 1. Acute kidney injury 2. Epigastric pain with evidence of acute gastritis/peptic ulcer disease on CT imaging of the abdomen pelvis 3. Elevated BUN, acute Disposition: Admission Samuel Jacobson DO Emergency Medicine Past Med/Surg History Problem List (Updated 02/24/24 @ 12:44 by Samuel Jacobson DO) GAVIN (acute kidney injury) (Acute) Peptic ulcer disease Gastritis Epigastric pain Essential hypertension Adnexal mass Elevated troponin (Acute) Chest pain (Acute) Severe protein-calorie malnutrition Acute metabolic encephalopathy UTI (urinary tract infection) History of migraine headaches Substernal chest pain Elevated troponin Acute kidney injury ANJEL positive Abnormal chest CT Multiple pulmonary nodules Bronchiectasis Pulmonary nodule Abnormal chest x-ray Asthma-COPD overlap syndrome COPD (chronic obstructive pulmonary disease) Pulmonary hypertension COPD with emphysema Exertional shortness of breath Dysphagia GERD (gastroesophageal reflux disease) Food impaction of esophagus (Acute) Social History Smoking Status: Never smoker Tobacco Type: Cigarettes Hx Alcohol Use: Yes Alcohol type: wine Hx Substance Use: No Preferred Language: Swedish Communication Ability: Impaired Pin Puller Required: No Beliefs That Will Affect Care: None Current Living Situation: Alone Current Living Situation Comment: Patient stated that passed 3 years ago and she has lived alone Feels Safe at Home: Yes Assistive Devices: Denture - Upper, Denture - Lower, Glasses and Hearing Aid - Right Allergies Allergies Allergy/AdvReac Type Severity Reaction Status Date / Time ciprofloxacin [From Cipro] Allergy Rash Verified 11/10/23 13:52 Penicillins Allergy Rash Verified 11/10/23 13:52 Sulfa (Sulfonamide Allergy Rash Verified 11/10/23 13:52 Antibiotics) Home Meds Home Medications Medication Instructions Recorded Confirmed sumatriptan succinate 100 mg tablet 100 mg PO UD PRN Migraine Headache 03/16/21 02/24/24 Previous Rx's Medication Instructions Recorded Flutter Valve #1 ea 11/15/23 budesonide 160 mcg-glycopyr 9 2 inh inhalation BID #10.7 grams 11/15/23 mcg-formot 4.8 mcg/actuation HFA inhaler (Breztri Aerosphere) guaifenesin 600 mg tablet, 600 mg PO BID PRN congestion #60 11/15/23 extended release 12 hr (Mucinex) tabs metoprolol succinate 100 mg 50 mg (1/2 x 100 mg) PO DAILY #0 02/11/24 tablet,extended release 24 hr tabs olanzapine 2.5 mg tablet 2.5 mg PO HS PRN night-time 02/11/24 confusion/agitation #14 tabs pantoprazole 40 mg tablet,delayed 40 mg PO QAM #30 tabs 02/11/24 release thiamine HCl (vitamin B1) 100 mg 200 mg (2 x 100 mg) PO BID 30 days 02/11/24 tablet #120 tabs Results & Data (ED) Vital Signs Vital Signs - 24 hr 02/24/24 09:04 02/24/24 09:07 02/24/24 09:12 Temperature 36.5 C Temperature Source Oral Pulse Rate 62 63 Pulse Rate from SpO2 Sensor 63 Respiratory Rate 22 18 Respiratory Effort / Characteristics Spontaneous Short of Breath Respiratory Depth Normal Respiratory Pattern Regular Blood Pressure 152/84 H 152/84 H Blood Pressure Mean 115 106 Blood Pressure Position Lying Pulse Oximetry 100 100 Oxygen Delivery Method Room Air Sepsis Recent Fever Within 48 Hours No Sepsis New/Unexplained Change in Mental Status N/A Sepsis Action Taken by Nursing No Action Required 02/24/24 09:15 02/24/24 09:21 02/24/24 09:25 Temperature Temperature Source Pulse Rate 64 59 L 62 Pulse Rate from SpO2 Sensor 59 L Respiratory Rate 19 Respiratory Effort / Characteristics Respiratory Depth Respiratory Pattern Blood Pressure Blood Pressure Mean Blood Pressure Position Pulse Oximetry 100 100 Oxygen Delivery Method Room Air Sepsis Recent Fever Within 48 Hours Sepsis New/Unexplained Change in Mental Status Sepsis Action Taken by Nursing 02/24/24 09:26 02/24/24 09:30 02/24/24 09:33 Temperature Temperature Source Pulse Rate 57 L Pulse Rate from SpO2 Sensor 56 L Respiratory Rate 24 Respiratory Effort / Characteristics Respiratory Depth Respiratory Pattern Blood Pressure 144/98 H Blood Pressure Mean 112 Blood Pressure Position Pulse Oximetry 100 99 Oxygen Delivery Method Room Air Sepsis Recent Fever Within 48 Hours Sepsis New/Unexplained Change in Mental Status Sepsis Action Taken by Nursing 02/24/24 10:00 02/24/24 10:06 02/24/24 10:30 Temperature Temperature Source Pulse Rate 59 L Pulse Rate from SpO2 Sensor 58 L Respiratory Rate 19 Respiratory Effort / Characteristics Respiratory Depth Respiratory Pattern Blood Pressure 102/65 119/70 Blood Pressure Mean 78 90 Blood Pressure Position Pulse Oximetry 96 Oxygen Delivery Method Sepsis Recent Fever Within 48 Hours Sepsis New/Unexplained Change in Mental Status Sepsis Action Taken by Nursing Laboratory Data 02/24/24 09:10 02/24/24 09:10 Lab Results 02/24/24 Range/Units 09:10 WBC 9.47 (4.8-10.8) K/ul RBC 3.71 L (4.20-5.40) M/uL Hgb 11.9 L (12.0-16.0) g/dl Hct 35.1 L (37.0-47.0) % MCV 94.6 (80.0-100.0) fL MCH 32.1 (25.0-34.0) pg MCHC 33.9 (32.0-36.0) g/dL RDW Std Deviation 47.4 H (36.4-46.3) fL RDW Coeff of Michael 13.6 (11.5-14.5) % Plt Count 349 (130-400) K/uL MPV 9.7 (9.4-12.4) fL Immature Gran % (Auto) 0.5 % Neut % (Auto) 75.4 % Lymph % (Auto) 13.8 % [place] % (Auto) 7.4 % Eos % (Auto) 2.3 % Baso % (Auto) 0.6 % Neut # (Auto) 7.13 H (1.40-6.50) K/uL Lymph # (Auto) 1.31 (1.20-3.40) K/uL [place] # (Auto) 0.70 H (0.11-0.59) K/uL Eos # (Auto) 0.22 (0.00-0.50) K/uL Baso # (Auto) 0.06 (0.00-0.20) K/uL Immature Gran # (Auto) 0.05 (0.01-0.20) K/uL PT 10.2 (9.0-12.0) Seconds INR 0.9 (0.9-1.1) Sodium 143 (136-145) mmol/L Potassium 3.8 (3.5-5.1) mmol/L Chloride 103 (98-107) mmol/L Carbon Dioxide 23 (21-32) mmol/L Anion Gap 17 H (3-11) BUN 35 H (6-23) mg/dl Creatinine 2.46 H (0.6-1.2) mg/dl Est Cr Clr Drug Dosing 10.4 ml/min eGFR 19.95 BUN/Creatinine Ratio 14.2 (10-20) Glucose 123 H (70-99(Fasting)) mg/dl Calcium 9.7 (8.6-10.3) mg/dl Total Bilirubin 0.3 (0.2-1.0) mg/dl AST 18 (13-39) U/L ALT 10 (7-52) U/L Alkaline Phosphatase 82 (34-104) U/L Troponin I High Sens 13.2 (0-14) pg/ml Total Protein 7.6 (6.0-8.3) gm/dl Albumin 4.1 (3.4-5.0) gm/dl Globulin 3.5 (2.5-4.0) gm/dl Albumin/Globulin Ratio 1.2 (0.9-2) Lipase 19 (11-82) U/L Administered Medications Pantoprazole Sodium 40 mg/ (Dextrose) 100 mls @ 20 mls/hr IV Q5H JANET Stop: 03/25/24 10:59 Last Admin: 02/24/24 11:44 Dose: 8 mg/hr, 20 mls/hr Documented By: CHUCKY Discontinued Medications Sodium Chloride (Nss) 1,000 mls @ 999 mls/hr IV .Q1H1M ONE Stop: 02/24/24 11:05 Last Infusion: 02/24/24 11:29 Dose: Infused Documented By: Admin: 02/24/24 10:28 Dose: 999 mls/hr Documented By: DAR Pantoprazole Sodium 80 mg/ (Dextrose) 120 mls @ 480 mls/hr IV NOW ONE Stop: 02/24/24 10:56 Last Infusion: 02/24/24 11:43 Dose: Infused Documented By: Admin: 02/24/24 11:25 Dose: 480 mls/hr Documented By: CHUCKY Morphine Sulfate (Morphine Sulfate 4 Mg/Ml 1 Ml Carp\\Vial) 4 mg IV NOW STA Stop: 02/24/24 09:33 Last Admin: 02/24/24 09:39 Dose: 4 mg Documented By: DAR Ondansetron HCl (Ondansetron Inj 2 Mg/Ml 2 Ml Vial) 4 mg IV NOW STA Stop: 02/24/24 09:33 Last Admin: 02/24/24 09:39 Dose: 4 mg Documented By: DAR Pantoprazole Sodium (Pantoprazole Bolus/Drip) 1 each IV NOW STA Stop: 02/24/24 10:43 Last Admin: 02/24/24 11:25 Dose: Not Given Documented By: CHUCKY Imaging Data Radiologist's Impression: Chest X-Ray 02/24/24 09:02 XR chest 1V portable HISTORY: 73 years-old Female Chest pain, nonspecific COMPARISON: CT abdomen and pelvis of same day, chest 02/06/2024, chest CT 08/24/2023 TECHNIQUE: AP view the chest FINDINGS: Cardiac silhouette is unchanged. Biapical pleural parenchymal scarring redemonstrated. Hyperinflation with subtle scattered ill-defined chronic tree-in-bud nodular foci again seen. No pneumothorax, pleural effusion or new airspace consolidation. The bones appear grossly intact. IMPRESSION: 1. Hyperinflation with biapical pleural parenchymal scarring redemonstrated. 2. Ill-defined tree-in-bud nodular foci are again noted suggestive of a chronic infectious or inflammatory bronchiolitis.. ACT 112: Negative or not required by law. The above report was generated using voice recognition software. It may contain grammatical, syntax or spelling errors. Electronically signed by: Flavio Henson M.D. 02/24/2024 10:30 AM Abdomen/Pelvis CT 02/24/24 10:05 CT OF THE ABDOMEN AND PELVIS WITHOUT CONTRAST CLINICAL HISTORY: Mid abdominal pain. COMPARISON STUDY: CT of the abdomen and pelvis February 10, 2024. TECHNIQUE: Axial images of the abdomen and pelvis were obtained without IV contrast. Images were reviewed in the axial, sagittal, and coronal planes. Automated exposure control was utilized for the study. A dose lowering technique was utilized adhering to the principles of ALARA. FINDINGS: Mild alveolar opacities within the right lower lobe have increased since CT of February 28, 2024. No pneumatosis, free air or portal venous gas is present. Evaluation of the abdomen and pelvis is suboptimal on this unenhanced exam. A 9 mm subcapsular hypodense hepatic lesion on image 61 favors a cyst. A water attenuation 3.4 cm left upper pole renal lesion favors a cyst. Small bilateral renal calculi measure up to 3 mm. There are no ureteral calculi. There is no hydronephrosis. There is no evidence for a bowel obstruction. There is wall thickening with stranding adjacent to the pylorus and proximal duodenum. No extraluminal gas is identified. No associated fluid collections are identified. No diverticulosis is present. There is no evidence for acute diverticulitis. There are no fluid collections. A density with coarse calcifications within the left hemipelvis is of doubtful significance. The appendix is normal. No acute fractures are identified within the lumbar spine, pelvis or hips. IMPRESSION: 1. Wall thickening of the pylorus and proximal duodenum with adjacent stranding suggestive of peptic ulcer disease/gastritis. No pneumoperitoneum. 2. Increase in right lower lobe alveolar opacities which favor a mild infectious process. 3. No bowel obstruction. Normal appendix. 4. Sigmoid diverticulosis. No evidence for acute diverticulitis. ACT 112: Negative or not required by law. Electronically signed by: Axel Paris M.D. 02/24/2024 10:36 AM Discharge Plan Visit Data Chief Complaint: Chest Pain Stated Complaint: CHEST PAIN ED Provider: Samuel Jacobson Discharge Problem: GAVIN (acute kidney injury) Forms Stand Alone Forms: [employer] Prescriptions Prescriptions: No Action guaifenesin [Mucinex] 600 mg tablet extended release 12hr 600 mg PO BID PRN (Reason: congestion) Qty: 60 1RF Rx Instructions: Take 1 tab p.o. twice a day for 7 days and then as needed So1 160-9-4.8 mcg/actuation HFA aerosol inhaler 2 inh inhalation BID Qty: 10.7 5RF (DME) Flutter Valve Device See Rx Instructions .MEDSUPPLY Qty: 1 0RF Rx Instructions: Use it every 6 hours when awake. sumatriptan succinate 100 mg Tablet 100 mg PO UD PRN (Reason: Migraine Headache) Rx Instructions: Take for severe migraine, no more than 2 in 24 hours thiamine HCl (vitamin B1) 100 mg Tablet 200 mg PO BID 30 Days Qty: 120 0RF olanzapine 2.5 mg Tablet 2.5 mg PO HS PRN (Reason: night-time confusion/agitation) Qty: 14 0RF pantoprazole 40 mg Tablet,Delayed Release (Dr/Ec) 40 mg PO QAM Qty: 30 5RF metoprolol succinate 100 mg Tablet Extended Release 24 Hr 50 mg PO DAILY Qty: 0 0RF Referrals Referrals: Kelly Zelaya DO [Primary Care Provider] -
[2024-02-24 09:39] LABS: Basophils # (auto) 0.06 K/uL (0.00-0.20); Basophils % (auto) 0.6 %; Eosinophils # (auto) 0.22 K/uL (0.00-0.50); Eosinophils % (auto) 2.3 %; Hematocrit (blood only) 35.1 % (37.0-47.0); Hemoglobin 11.9 g/dl (12.0-16.0); Immature Granulocytes # (auto) 0.05 K/uL (0.01-0.20); Immature Granulocytes % (auto) 0.5 %; Lymphocytes # (auto) 1.31 K/uL (1.20-3.40); Lymphocytes % (auto) 13.8 %; Mean Corpuscular Hemoglobin 32.1 pg (25.0-34.0); Mean Corpuscular Hgb Conc 33.9 g/dL (32.0-36.0); Mean Corpuscular Volume 94.6 fL (80.0-100.0); Mean Platelet Volume 9.7 fL (9.4-12.4); Monocytes % (auto) 7.4 %; Neutrophils # (auto) 7.13 K/uL (1.40-6.50); Neutrophils % (auto) 75.4 %; Platelet Count 349 K/uL (130-400); RDW Coefficient of Variation 13.6 % (11.5-14.5); RDW Standard Deviation 47.4 fL (36.4-46.3); Red Blood Count 3.71 M/uL (4.20-5.40); White Blood Count 9.47 K/ul (4.8-10.8)
[2024-02-24] MEDS: ONDANSETRON INJ 2 MG/ML 2 ML VIAL IV STA (09:39)
[2024-02-24] MEDS: MoRPHine SULFATE 4 MG/ML 1 ML CARP\\VIAL IV STA (09:39)
[2024-02-24 09:55] LABS: Albumin Globulin Ratio 1.2 (0.9-2); Albumin Level 4.1 gm/dl (3.4-5.0); BUN Creatinine Ratio 14.2 (10-20); Bilirubin,Total 0.3 mg/dl (0.2-1.0); Calcium 9.7 mg/dl (8.6-10.3); Creatinine Clr Calc Pharmacy 10.4 ml/min; Globulin 3.5 gm/dl (2.5-4.0); Potassium 3.8 mmol/L (3.5-5.1); Total Protein 7.6 gm/dl (6.0-8.3)
[2024-02-24 10:00] LABS: Troponin I High Sensitivity 13.2 pg/ml (0-14)
[2024-02-24 10:12] LABS: INR 0.9 (0.9-1.1); Prothrombin Time 10.2 Seconds (9.0-12.0)
[2024-02-24] MEDS: SODIUM CHLORIDE 0.9% 1,000 ML IV ONE (10:28)
--- NOTE | 2024-02-24 10:31 | XRay Report ---
XR chest 1V portable HISTORY: 73 years-old Female Chest pain, nonspecific COMPARISON: CT abdomen and pelvis of same day, chest 02/06/2024, chest CT 08/24/2023 TECHNIQUE: AP view the chest FINDINGS: Cardiac silhouette is unchanged. Biapical pleural parenchymal scarring redemonstrated. Hyperinflation with subtle scattered ill-defined chronic tree-in-bud nodular foci again seen. No pneumothorax, pleu ral effusion or new airspace consolidation. The bones appear grossly intact. IMPRESSION: 1. Hyperinflation with biapical pleural parenchymal scarring redemonstrated. 2. Ill-defined tree-in-bud nodular foci are again noted suggestive of a chronic infectious or inflamm atory bronchiolitis.. ACT 112: Negative or not required by law. The above report was generated using voice recognition software. It may contain grammatical, syntax o r spelling errors. Electronically signed by: Flavio Henson M.D. 02/24/2024 10:30 AM
--- NOTE | 2024-02-24 10:38 | CT Scan Report ---
CT OF THE ABDOMEN AND PELVIS WITHOUT CONTRAST CLINICAL HISTORY: Mid abdominal pain. COMPARISON STUDY: CT of the abdomen and pelvis February 10, 2024. TECHNIQUE: Axial images of the abdomen and pelvis were obtained without IV contrast. Images were revi ewed in the axial, sagittal, and coronal planes. Automated exposure control was utilized for the reshma dy. A dose lowering technique was utilized adhering to the principles of ALARA. FINDINGS: Mild alveolar opacities within the right lower lobe have increased since CT of February 28, 2024. No pneumatosis, free air or portal venous gas is present. Evaluation of the abdomen and pelvis is suboptimal on this unenhanced exam. A 9 mm subcapsular hypodense hepatic lesion on image 61 favor s a cyst. A water attenuation 3.4 cm left upper pole renal lesion favors a cyst. Small bilateral dirk l calculi measure up to 3 mm. There are no ureteral calculi. There is no hydronephrosis. There is no evidence for a bowel obstruction. There is wall thickening with stranding adjacent to the pylorus and proximal duodenum. No extraluminal gas is identified. No associated fluid collections are identified . No diverticulosis is present. There is no evidence for acute diverticulitis. There are no fluid col lections. A density with coarse calcifications within the left hemipelvis is of doubtful significance . The appendix is normal. No acute fractures are identified within the lumbar spine, pelvis or hips. IMPRESSION: 1. Wall thickening of the pylorus and proximal duodenum with adjacent stranding suggestive of peptic ulcer disease/gastritis. No pneumoperitoneum. 2. Increase in right lower lobe alveolar opacities which favor a mild infectious process. 3. No bowel obstruction. Normal appendix. 4. Sigmoid diverticulosis. No evidence for acute diverticulitis. ACT 112: Negative or not required by law. Electronically signed by: Axel Paris M.D. 02/24/2024 10:36 AM
--- NOTE | 2024-02-24 10:51 | History & Physical Report ---
Date of Service February 24, 2024 Assessment & Plan (1) Gastritis: Plan: Transverse epigastric pain that began the evening of 02/22 Troponin WNL on arrival No leukocytosis; afebrile A/P CT suggestive of peptic ulcer disease/gastritis CT also notes mild RLL airspace opacities; however, patient denies respiratory symptoms on arrival No obstructive etiology appreciated Patient denies melena or BRB in stool; Hgb 11.9 on arrival Bowel rest Hold PRN p.o. medications for now Clear liquid liquid diet for now NSS 1000 mL IV x 1 Encourage p.o. intake in the setting of national IVF shortage Protonix 40 mg IV BID Pepcid 20 mg IV BID Monitor H&H IV pain control as needed IV antiemetics as needed A.m. CBC, BMP, mag (2) Peptic ulcer disease: Plan: Patient denies NSAID/Aspirin use PPI would need to be paused prior to H. pylori testing No indication for emergent EGD; hemoglobin stable; no melena; recommend PCP/GI follow-up outpatient (3) Acute kidney injury: Plan: BUN 35, creatinine 2.46 (baseline 0.93), EGFR 19.95 Avoid nephrotoxic agents where possible Suspect prerenal due to dehydration/poor p.o. intake IVF resuscitation (as above) (4) Severe protein-calorie malnutrition: Plan: BMI 13.0 on arrival Dietitian is consulted (5) Pulmonary hypertension: Plan: Metoprolol succinate 50 mg p.o. daily --> metoprolol tartrate 5 mg IV q6h starting on 02/24 (6) Asthma-COPD overlap syndrome: Plan: Continue home inhalers Plan Disposition: Admit to [facility] telemetry Full code Clear liquid diet for now VTE PPx: Teds History of Present Illness Chief Complaint: Epigastric pain Primary Care Provider: Kelly Mcfadden DO Annika is a 73-year-old female with PMH of asthmaCOPD overlap syndrome, pulmonary hypertension, dysphagia, GERD, food impaction of the esophagus, bronchiectasis, and severe proteincalorie malnutrition. She presented on 02/23 for epigastric pain. She reports the pain is located just below her rib cage, and cuts transversely across the upper abdomen on both sides. The pain started last night, and she reports that it comes in waves. She characterizes it as a dull, achy pain that she rates 4/10 at present. The pain woke her from sleep multiple times last night. She did not take any pain medicine prior to coming into the hospital. Patient is unsure if it radiates to her back. No radiation to her lower stomach, chest, shoulders, or jaw. She believes that the pain is sometimes worse with movements. She does have a history of GERD/reflux. She reports she has had prior pain similar to this episode, but it never lasted this long. No history of peptic ulcers or GI bleeds, to her knowledge; however, she reports her father had bad peptic ulcers. She does not believe she has ever had a colonoscopy, and is unsure if she is ever had an EGD. No recent NSAID/aspirin use; she normally uses Tylenol as needed for headaches. Patient currently lives with her youngest son in [place]. She reports that she took her regular medicines today (metoprolol); she reports she does not take Protonix on a daily basis despite being on her med list. She manages her own medicine at home; no recent change in medications. No recent injuries to the chest wall or stomach. No sick contacts. No recent change in diet, but she reports she is not eating as much as she usually does; she reports she is drinking okay. Patient denies smoking, tobacco use, recent alcohol use. Additionally, she reports that she is prone to UTIs, and was admitted here 3 weeks ago for UTI; she request that we check her for UTI while she is here. Patient's vitals are stable at time of admission. ED course: Protonix bolus + IV drip NSS 1000 L IV Morphine 4 mg IV Zofran 4 mg IV ROS: Patient endorses epigastric pain, lightheadedness (intermittent with standing), RIDER, nausea, and dry heaves. Patient denies fever, chills, night-sweats, syncope, falls, SOB, pleuritic CP, cough, vomiting, diarrhea, burning with urination, changes in urinary/bowel, melena, or BRB in the urine or stool. Spoke to patient's son at bedside and provided update regarding labs/imaging/admission status. Per son, the patient does have a history of peptic ulcers x 2 in the past, accompanied by GI bleed. He believes that she needed to have an EGD done back at a hospital in [facility] (10 years ago). Son reports that the patient manages her own medicine at home, but he believes she has not been taking Protonix, which was originally prescribed upon discharge 02/10. Only other medications prescribed upon discharge were Keflex x 3 days and olanzapine at bedtime. Allergies Allergy/AdvReac Type Severity Reaction Status Date / Time ciprofloxacin [From Cipro] Allergy Rash Verified 11/10/23 13:52 Penicillins Allergy Rash Verified 11/10/23 13:52 Sulfa (Sulfonamide Allergy Rash Verified 11/10/23 13:52 Antibiotics) Home Medications Medication Instructions Recorded Confirmed Type sumatriptan succinate 100 mg tablet 100 mg PO UD PRN Migraine Headache 03/16/21 02/24/24 History Flutter Valve #1 ea 11/15/23 11/15/23 Rx budesonide 160 mcg-glycopyr 9 2 inh inhalation BID #10.7 grams 11/15/23 02/24/24 Rx mcg-formot 4.8 mcg/actuation HFA inhaler (Breztri Aerosphere) guaifenesin 600 mg tablet, 600 mg PO BID PRN congestion #60 11/15/23 02/24/24 Rx extended release 12 hr (Mucinex) tabs metoprolol succinate 100 mg 50 mg (1/2 x 100 mg) PO DAILY #0 02/11/24 02/24/24 Rx tablet,extended release 24 hr tabs olanzapine 2.5 mg tablet 2.5 mg PO HS PRN night-time 02/11/24 02/24/24 Rx confusion/agitation #14 tabs pantoprazole 40 mg tablet,delayed 40 mg PO QAM #30 tabs 02/11/24 02/24/24 Rx release thiamine HCl (vitamin B1) 100 mg 200 mg (2 x 100 mg) PO BID 30 days 02/11/24 02/24/24 Rx tablet #120 tabs Past Med/Surg History Problem List (Updated 02/24/24 @ 12:44 by Samuel Jacobson DO) GAVIN (acute kidney injury) (Acute) Peptic ulcer disease Gastritis Epigastric pain Essential hypertension Adnexal mass Elevated troponin (Acute) Chest pain (Acute) Severe protein-calorie malnutrition Acute metabolic encephalopathy UTI (urinary tract infection) History of migraine headaches Substernal chest pain Elevated troponin Acute kidney injury ANJEL positive Abnormal chest CT Multiple pulmonary nodules Bronchiectasis Pulmonary nodule Abnormal chest x-ray Asthma-COPD overlap syndrome COPD (chronic obstructive pulmonary disease) Pulmonary hypertension COPD with emphysema Exertional shortness of breath Dysphagia GERD (gastroesophageal reflux disease) Food impaction of esophagus (Acute) Social History Smoking Status: Never smoker Tobacco Type: Cigarettes Hx Alcohol Use: Yes Alcohol type: wine Hx Substance Use: No Preferred Language: Pashto Communication Ability: Impaired Vehicle Detailer Required: No Beliefs That Will Affect Care: None Current Living Situation: Alone Current Living Situation Comment: Patient stated that passed 3 years ago and she has lived alone Feels Safe at Home: Yes Assistive Devices: Denture - Upper, Denture - Lower, Glasses and Hearing Aid - Right Review of Systems Review of Systems: See HPI above Physical Exam Physical Exam: General: no acute distress; anxious; non-toxic appearing; frail appearing; cachectic; cooperative; SpO2 96% on RA HEENT: normocephalic, atraumatic; no scleral icterus; PERRLA; vision intact; hard of hearing Neck: supple; trachea midline Skin: warm, dry without signs of tenting; no cyanosis; no rashes, bruising, lesions, or erythema noted CV: Pectus excavatum; chest wall is mildly TTP in the lower sternum/epigastric region bilaterally; no rashes or bruises noted on the chest wall or stomach; RRR; S1/S2 normal; no murmurs/rubs/gallops; pulses intact and symmetric at radial, DP, and PT Lungs: no acute respiratory distress; symmetrical chest wall expansion; clear breath sounds across all lung costa w/o adventitious sounds; no wheezing ABD: Soft, epigastric region is TTP; lower quadrants NTP; BS present; no rebound/guarding; no distention MSK: no tics or fasciculations; no edema noted in the LEs b/l, nonerythematous Neuro: A&Ox3; normal mood and affect; fluent speech; no focal deficits; sensation intact and symmetric in the LEs b/l Results & Data Results & Data Vital Signs (Past 12 Hours) Vital Signs Temp Pulse Resp BP Pulse Ox O2 Del Method 02/24/24 10:30 119/70 02/24/24 10:06 59 L 19 96 02/24/24 10:00 102/65 02/24/24 09:33 57 L 24 99 02/24/24 09:30 144/98 H 02/24/24 09:26 100 Room Air 02/24/24 09:25 62 100 Room Air 02/24/24 09:21 59 L 19 100 02/24/24 09:15 64 02/24/24 09:12 63 18 100 02/24/24 09:07 36.5 C 62 22 152/84 H 100 Room Air 02/24/24 09:04 152/84 H Laboratory Results Abnormal lab results 02/24/24 Range/Units 09:10 RBC 3.71 L (4.20-5.40) M/uL Hgb 11.9 L (12.0-16.0) g/dl Hct 35.1 L (37.0-47.0) % RDW Std Deviation 47.4 H (36.4-46.3) fL Neut # (Auto) 7.13 H (1.40-6.50) K/uL [place] # (Auto) 0.70 H (0.11-0.59) K/uL Anion Gap 17 H (3-11) BUN 35 H (6-23) mg/dl Creatinine 2.46 H (0.6-1.2) mg/dl Glucose 123 H (70-99(Fasting)) mg/dl Diagnostic Findings Chest X-Ray 02/24/24 09:02 XR chest 1V portable HISTORY: 73 years-old Female Chest pain, nonspecific COMPARISON: CT abdomen and pelvis of same day, chest 02/06/2024, chest CT 08/24/2023 TECHNIQUE: AP view the chest FINDINGS: Cardiac silhouette is unchanged. Biapical pleural parenchymal scarring redemonstrated. Hyperinflation with subtle scattered ill-defined chronic tree-in-bud nodular foci again seen. No pneumothorax, pleural effusion or new airspace consolidation. The bones appear grossly intact. IMPRESSION: 1. Hyperinflation with biapical pleural parenchymal scarring redemonstrated. 2. Ill-defined tree-in-bud nodular foci are again noted suggestive of a chronic infectious or inflammatory bronchiolitis.. ACT 112: Negative or not required by law. The above report was generated using voice recognition software. It may contain grammatical, syntax or spelling errors. Electronically signed by: Flavio Henson M.D. 02/24/2024 10:30 AM Abdomen/Pelvis CT 02/24/24 10:05 CT OF THE ABDOMEN AND PELVIS WITHOUT CONTRAST CLINICAL HISTORY: Mid abdominal pain. COMPARISON STUDY: CT of the abdomen and pelvis February 10, 2024. TECHNIQUE: Axial images of the abdomen and pelvis were obtained without IV contrast. Images were reviewed in the axial, sagittal, and coronal planes. Auto mated exposure control was utilized for the study. A dose lowering technique was utilized adhering to the principles of ALARA. FINDINGS: Mild alveolar opacities within the right lower lobe have increased since CT of February 28, 2024. No pneumatosis, free air or portal venous gas is present. Evaluation of the abdomen and pelvis is suboptimal on this unenhanced exam. A 9 mm subcapsular hypodense hepatic lesion on image 61 favors a cyst. A water attenuation 3.4 cm left upper pole renal lesion favors a cyst. Small bilateral renal calculi measure up to 3 mm. There are no ureteral calculi. There is no hydronephrosis. There is no evidence for a bowel obstruction. There is wall thickening with stranding adjacent to the pylorus and proximal duodenum. No extraluminal gas is identified. No associated fluid collections are identified. No diverticulosis is present. There is no evidence for acute diverticulitis. There are no fluid collections. A density with coarse calcifications within the left hemipelvis is of doubtful significance. The appendix is normal. No acute fractures are identified within the lumbar spine, pelvis or hips. IMPRESSION: 1. Wall thickening of the pylorus and proximal duodenum with adjacent stranding suggestive of peptic ulcer disease/gastritis. No pneumoperitoneum. 2. Increase in right lower lobe alveolar opacities which favor a mild infectious process. 3. No bowel obstruction. Normal appendix. 4. Sigmoid diverticulosis. No evidence for acute diverticulitis. ACT 112: Negative or not required by law. Electronically signed by: Axel Paris M.D. 02/24/2024 10:36 AM Code Status & VTE Plan Code Status Full code VTE Prophylaxis Plan VTE Prophylaxis will be ordered: Yes PG Care Time/CCT Total # of Minutes Spent Total Time Spent with Patient: Total time spent is greater than 50% in coordination of care (as documented) at patient's floor/unit and/or counseling patient: C[place] [address] INT INP/OBS CARE 3/75MIN Patient Type Established History Comprehensive Exam Comprehensive Medical Decision Making High Complexity Diagnoses Gastritis K29.70 Peptic ulcer disease K27.9 Acute kidney injury N17.9 Severe protein-calorie malnutrition E43 Pulmonary hypertension I27.20 Asthma-COPD overlap syndrome J44.89
[2024-02-24] MEDS: PANTOPRAZOLE BOLUS/DRIP IV STA (11:25)
[2024-02-24] MEDS: PANTOprazole 80 MG in DEXTROSE 5% 100 ML IV ONE (11:25)
[2024-02-24] MEDS: PANTOprazole 40 MG in DEXTROSE 5% MINI-B 100 ML IV SCH (11:44)
[2024-02-24] MEDS ORDERED: ACETAMINOPHEN 1,000 MG/100 ML VIAL IV PRN (13:45)
[2024-02-24] MEDS ORDERED: ONDANSETRON INJ 2 MG/ML 2 ML VIAL IV PRN (13:45)
[2024-02-24] MEDS: FAMOTIDINE 20MG IV PUSH 20 MG/5 ML SYR IV SCH (17:55)
[2024-02-24] MEDS: UMECLIDINIUM/VILANTEROL 62.5/25MCG 7 PUFFS/INHALER INH SCH (20:35)
[2024-02-24] MEDS: FLUTICASONE FUROATE 200MCG 14 PUFFS/INHALER INH SCH (20:35)
[2024-02-24] MEDS: PANTOprazole 40 MG/10 ML SYR IV SCH (20:35)
[2024-02-24] MEDS ORDERED: NON-FORMULARY MEDICATION (Budesonide-Glycopyr-Formoterol [Breztri Aerosphere] 160-9-4.8 mc INH SCH (21:00)
[2024-02-24 21:45] LABS: Appearance Urine Clear (Clear); Bacteria Urine Automated None Seen (None Seen); Bilirubin Urine Negative (Negative); Blood Urine Negative (Negative); Color Urine Yellow; Glucose Urine UA Negative (Negative); Ketones Urine Trace (Negative); Leukocyte Esterase Urine 1+ (Negative); Nitrite Urine Negative (Negative); Protein Urine Negative (Negative); RBC Urine Automated 0-2 /hpf (0-2); Specific Gravity Urine 1.019 (1.000-1.030); Urobilinogen Urine Negative (Negative)
[2024-02-25 06:34] LABS: Basophils # (auto) 0.03 K/uL (0.00-0.20); Basophils % (auto) 0.6 %; Eosinophils % (auto) 5.6 %; Hematocrit (blood only) 29.4 % (37.0-47.0); Hemoglobin 9.7 g/dl (12.0-16.0); Immature Granulocytes # (auto) 0.03 K/uL (0.01-0.20); Immature Granulocytes % (auto) 0.6 %; Lymphocytes # (auto) 1.24 K/uL (1.20-3.40); Lymphocytes % (auto) 23.2 %; Mean Corpuscular Hemoglobin 31.9 pg (25.0-34.0); Mean Corpuscular Volume 96.7 fL (80.0-100.0); Mean Platelet Volume 9.6 fL (9.4-12.4); Monocytes # (auto) 0.64 K/uL (0.11-0.59); Platelet Count 253 K/uL (130-400); RDW Standard Deviation 49.9 fL (36.4-46.3); Red Blood Count 3.04 M/uL (4.20-5.40); White Blood Count 5.34 K/ul (4.8-10.8)
[2024-02-25 07:10] LABS: Calcium 8.1 mg/dl (8.6-10.3); Creatinine Clr Calc Pharmacy 12.7 ml/min; Magnesium 1.7 mg/dl (1.7-2.4); Potassium 3.9 mmol/L (3.5-5.1)
--- NOTE | 2024-02-25 09:15 | Electrocardiogram Report ---
Test Reason : Blood Pressure : */* mmHG Vent. Rate : 63 BPM Atrial Rate : 63 BPM P-R Int : 84 ms QRS Dur : 84 ms QT Int : 440 ms P-R-T Axes : 64 82 66 degrees QTcB Int : 450 ms Sinus rhythm with possible competing junctional rhythm and with Premature supraventricular complexes Minimal voltage criteria for LVH, may be normal variant Borderline ECG When compared with ECG of 06-Feb-2024 18:54, Premature supraventricular complexes are now Present Nonspecific T wave abnormality now evident in Inferior leads T wave inversion more evident in Anterior leads Confirmed by Nikita Gonzalez ([id number]) on 02/25/2024 9:15:38 AM Referred By: REFERRED SELF Confirmed By: Nikita Gonzalez
[2024-02-25 09:17] LABS: Ferritin 167.3 ng/ml (8-388)
--- NOTE | 2024-02-25 09:56 | Hospitalist Progress Note ---
Date of Service February 25, 2024 Assessment & Plan (1) Gastritis: Plan: Transverse epigastric pain that began the evening of 02/22. Recently discharge on PPI but has not been taking. CTAP: suggesting peptic ulcer disease/gastritis. Increase in right lower lobe alveolar opacities favoring mild infectious process. No obstruction Troponin WNL on arrival Patient denies melena or BRB in stool; Hgb 11.9 on arrival - downtrending to 9.7, but suspect dilutional component with IVF - recheck this afternoon - iron studies consistent with anemia of Chronic dz Afebrile. no leukocystosis. 99% on room air. Denies cough/cold --> defer abx for possible infectious process seen on CT Continue BID protonix and Pepcid A.m. CBC, BMP, mag (2) Peptic ulcer disease: Plan: Patient denies NSAID/Aspirin use No indication for emergent EGD as hemoglobin stable - recommend GI follow-up outpatient (3) Acute kidney injury: Plan: BUN 35, creatinine 2.46 (baseline 0.93), EGFR 19.95 Avoid nephrotoxic agents where possible Suspect prerenal due to dehydration/poor p.o. intake S/p 1L IVF --> improved to 1.93 - continue to encourage PO intake with national fluid shortage AM BMP (4) Severe protein-calorie malnutrition: Plan: BMI 13.0 on arrival Dietitian is consulted - pt reports agreeable to vanilla protein shake (family reports has been rx shakes by PCP and did not like them) pt has not taken zyprexa since last discharge, pt and family would not appetite stimulant like remeron B1 level undetectable last admission. Continued PO supplementation while inpatient, would ensure patient takes at discharge (5) Thiamine deficiency: Plan Chronic stable medical conditions: * Asthma/COPD - continue inhalers * HTN - continue metoprolol PO Disposition: continued inpatient stay VTE PPx: Ifeanyi Family updated at bedside 02/24 Admission and Anticipated Discharge Date Admission Date: February 24, 2024 Supervising Physician Co-Signing Physician Notes Attending Attestation - Chart reviewed, care plan d/w ELAN Medrano. I agree w/ the vargas components of her documentation with the following addition - thiamine deficiency Rolly Anaya MD Subjective Patient seen lying in bed, resting. No family present at bedside. Able to change her hearing aide battery independently. Abdominal pain is improving, was able to eat breakfast. Denies cough or cold symptoms. no changes in bowel habits. Tele SB 50s Review of Systems Review of Systems: All systems reviewed & are unremarkable except as noted in Subjective Physical Exam Physical Exam: General: NAD, VS as above, lying in bed, cachectic, fraile appearing Resp: normal respiratory effort, lungs clear to auscultation CV: RRR, no murmur, Abd: normal bowel sounds, non tender, no hepatosplenomegaly Extremities: Moves all extremities, no edema Neuro: A&O x2, Results & Data Results & Data Vital Signs (Past 12 Hours) Vital Signs Temp Pulse Pulse Resp BP Pulse Ox O2 Del Method 02/25/24 08:30 Room Air 02/25/24 07:46 97.7 F 57 L 16 118/68 99 Room Air 02/25/24 07:02 54 L 02/25/24 03:11 97.9 F 60 16 93/57 L 99 Room Air 02/25/24 00:49 97.5 F L 87 20 98/55 L 93 Room Air Laboratory Results cbc, chemistry, iron studies reviewed PG Care Time/CCT Total # of Minutes Spent Total Time Spent with Patient: Total time spent is greater than 50% in coordination of care (as documented) at patient's floor/unit and/or counseling patient: Coding Level of Care Code 84695 SUB INP/OBS CARE 350MIN Diagnoses Gastritis K29.70 Peptic ulcer disease K27.9 Acute kidney injury N17.9 Severe protein-calorie malnutrition E43 Thiamine deficiency E51.9
[2024-02-25] MEDS ORDERED: METOPROLOL TARTRATE 1 MG/ML VIAL IV SCH (12:00)
[2024-02-25] MEDS: THIAMINE HCL 100 MG TAB PO SCH (14:01)
[2024-02-25] MEDS ORDERED: POLYETHYLENE (MIRALAX) 17 GM PACK PO PRN (14:54)
[2024-02-25 16:03] LABS: Hematocrit (blood only) 33.9 % (37.0-47.0); Hemoglobin 10.9 g/dl (12.0-16.0); Mean Corpuscular Hemoglobin 32.1 pg (25.0-34.0); Mean Corpuscular Hgb Conc 32.2 g/dL (32.0-36.0); Mean Corpuscular Volume 99.7 fL (80.0-100.0); Mean Platelet Volume 9.6 fL (9.4-12.4); Platelet Count 288 K/uL (130-400); RDW Coefficient of Variation 14.2 % (11.5-14.5); RDW Standard Deviation 51.8 fL (36.4-46.3); White Blood Count 7.79 K/ul (4.8-10.8)
[2024-02-25] MEDS: MELATONIN 3 MG TAB PO PRN (21:44)
[2024-02-26 06:07] LABS: Basophils # (auto) 0.04 K/uL (0.00-0.20); Basophils % (auto) 0.8 %; Eosinophils # (auto) 0.25 K/uL (0.00-0.50); Eosinophils % (auto) 4.7 %; Hematocrit (blood only) 27.9 % (37.0-47.0); Hemoglobin 9.4 g/dl (12.0-16.0); Immature Granulocytes # (auto) 0.02 K/uL (0.01-0.20); Immature Granulocytes % (auto) 0.4 %; Lymphocytes # (auto) 1.12 K/uL (1.20-3.40); Lymphocytes % (auto) 21.1 %; Mean Corpuscular Hemoglobin 32.5 pg (25.0-34.0); Mean Corpuscular Hgb Conc 33.7 g/dL (32.0-36.0); Mean Corpuscular Volume 96.5 fL (80.0-100.0); Mean Platelet Volume 9.4 fL (9.4-12.4); Monocytes # (auto) 0.66 K/uL (0.11-0.59); Monocytes % (auto) 12.5 %; Neutrophils # (auto) 3.21 K/uL (1.40-6.50); Neutrophils % (auto) 60.5 %; Platelet Count 237 K/uL (130-400); RDW Coefficient of Variation 13.6 % (11.5-14.5); RDW Standard Deviation 49.4 fL (36.4-46.3); Red Blood Count 2.89 M/uL (4.20-5.40)
[2024-02-26 06:22] LABS: BUN Creatinine Ratio 14.7 (10-20); Calcium 8.5 mg/dl (8.6-10.3); Creatinine Clr Calc Pharmacy 16.4 ml/min; Potassium 3.7 mmol/L (3.5-5.1)
--- NOTE | 2024-02-26 08:14 | Hospitalist Progress Note ---
Date of Service February 26, 2024 Assessment & Plan (1) Gastritis: Plan: Transverse epigastric pain that began the evening of 02/22. This is persistent but significantly improved. Troponin WNL on arrival No leukocytosis; afebrile A/P CT suggestive of peptic ulcer disease/gastritis CT also notes mild RLL airspace opacities; however, patient denies respiratory symptoms on arrival No obstructive etiology appreciated Patient denies melena or BRB in stool; Hgb 11.9 on arrival. Patient currently 9.4 g/Norris. She was 9.7 on 02/25/2024 Continue with full liquid diet Hold PRN p.o. medications for now NSS 1000 mL IV x 1 Encourage p.o. intake in the setting of national IVF shortage Resume Protonix 40 mg IV BID and Pepcid 20 mg IV BID Monitor H&H IV pain control as needed IV antiemetics as needed A.m. CBC, BMP, mag (2) Peptic ulcer disease: Plan: Patient denies NSAID/Aspirin use PPI would need to be paused prior to H. pylori testing No indication for emergent EGD; hemoglobin stable; no melena; recommend PCP/GI follow-up outpatient Patient son is present. He endorses poor medication compliance. Reports the patient did have medication at home but just did not take it. No acute abdominal pain at this time. (3) Acute kidney injury: Plan: BUN 35, creatinine 2.46 (baseline 0.93), EGFR 19.95 on admission Creatinine is trending downward Avoid nephrotoxic agents where possible Suspect prerenal due to dehydration/poor p.o. intake IVF resuscitation (as above) Check labs in the morning. (4) Severe protein-calorie malnutrition: Plan: BMI 13.0 on arrival Dietitian is consulted Vit B1 level (Thiamin) was <6 (5) Pulmonary hypertension: Plan: Metoprolol succinate 50 mg p.o. daily --> metoprolol tartrate 5 mg IV q6h starting on 02/24 (6) Asthma-COPD overlap syndrome: Plan: Continue home inhalers (7) Thiamine deficiency: Plan: thiamine 200mg BID x 1 month (8) Acute metabolic encephalopathy: Plan [facility] Full code Full liquid diet for now VTE PPx: Teds Due to patient is noncompliant, son Byron is concerned about patient being discharged home. Chuck Llanos lives in [facility]. He feels patient would benefit from short rehab stay. PT/OT orders placed Admission and Anticipated Discharge Date Admission Date: February 24, 2024 Supervising Physician Co-Signing Physician Notes Attending Attestation - Chart reviewed, care plan d/w ELAN Xiong. I agree w/ the vargas components of his documentation with the following addition - metabolic encephalopathy Rolly Anaya MD Subjective Attending: Dr. Anaya This is a 73-year-old female admitted 02/24/2024 with gastritis and increased epigastric pain. Pain began the evening of 02/23/2024. Patient recently was admitted and discharged from the hospital 02/11/2024. She was prescribed PPI but was noncompliant as an outpatient. CT abdomen pelvis suggested peptic ulcer disease/gastritis. No evidence of melena or hematochezia. Hemoglobin was 11.9 on arrival. Follow-up labs showed downtrending 9.7 g/Norris. Hemoglobin improved to 10.9 yesterday and is at 9.4 today. This most likely hemodilutional to IV fluid. Patient did present with acute renal failure with a creatinine of 2.46. This is now improved to 1.5 mg/Norris. Baseline is 0.9. Soft with a systolic pressure in the 90s. Patient typically runs in the mid 1-teens. Patient was seen by physical therapy and Occupational Therapy during her last admission with most recent visit 02/10/2024. At that time, patient was determined to be safe to discharge home. Met with patient's son today at bedside. He is very concerned the patient has increased confusion. Patient feels that she is in a mobile home. Able to redirect the patient and walker in the hallways. She then identifies that she is in a hospital. Son continues to express concern about discharge home and is worried about readmission. Patient admits to some confusion. She has no shortness of breath or chest pain. No fever. No headache. No visual changes. She has no other acute complaints at this time. She does have increased anxiety and does appear to be confused. Review of Systems 2 Review of Systems: A total of 10 systems was reviewed and is negative other than as listed in the HPI Physical Exam 2 Physical Exam: GENERAL : No acute distress EYES: No icterus, gaze conjugate NOSE: No evidence of epistaxis MOUTH: No lesions or candidiasis NECK: Supple LUNGS: CTA B/L, no wheezes, rales or rhonchi HEART: Regular, rate controlled ABDOMEN: Soft, NT, ND, BS Present EXTREMITIES: No LE edema, pedal pulses intact NEURO: A&OX3 Results & Data Results & Data Vital Signs (Past 12 Hours) Vital Signs Temp Pulse Pulse Resp BP BP Pulse Ox 02/26/24 07:33 36.8 C 79 20 104/67 100 02/26/24 07:30 94 H 02/25/24 22:36 36.7 C 83 18 95/61 L 99 02/25/24 21:39 82 O2 Del Method 02/26/24 07:33 Room Air 02/26/24 07:30 02/25/24 22:36 Room Air 02/25/24 21:39 Laboratory Results 02/26/24 05:36 02/26/24 05:36 Diagnostic Findings 02/26/24 05:36 02/26/24 05:36 PG Care Time/CCT Total # of Minutes Spent Total Time Spent with Patient: Total time spent is greater than 50% in coordination of care (as documented) at patient's floor/unit and/or counseling patient: 30 minutes with patient and son Byron Coding Level of Care Code 13451 SUB INP/OBS CARE 2/35MIN Diagnoses Gastritis K29.70 Peptic ulcer disease K27.9 Acute kidney injury N17.9 Severe protein-calorie malnutrition E43 Pulmonary hypertension I27.20 Asthma-COPD overlap syndrome J44.89 Thiamine deficiency E51.9 Acute metabolic encephalopathy G93.41 Time Spent (min) 30
[2024-02-26] MEDS: METOPROLOL SUCC 50MG EXT REL TAB PO SCH (08:23)
[2024-02-26] MEDS: ACETAMINOPHEN 325 MG TAB PO PRN (10:07)
[2024-02-26] MEDS: OLANZAPINE 2.5 MG TAB PO PRN (21:22)
[2024-02-27 07:20] LABS: Basophils # (auto) 0.03 K/uL (0.00-0.20); Basophils % (auto) 0.6 %; Eosinophils # (auto) 0.25 K/uL (0.00-0.50); Eosinophils % (auto) 5.2 %; Hemoglobin 10.1 g/dl (12.0-16.0); Immature Granulocytes # (auto) 0.02 K/uL (0.01-0.20); Immature Granulocytes % (auto) 0.4 %; Lymphocytes # (auto) 1.22 K/uL (1.20-3.40); Lymphocytes % (auto) 25.3 %; Mean Corpuscular Hemoglobin 31.8 pg (25.0-34.0); Mean Corpuscular Hgb Conc 32.6 g/dL (32.0-36.0); Mean Corpuscular Volume 97.5 fL (80.0-100.0); Mean Platelet Volume 9.4 fL (9.4-12.4); Monocytes # (auto) 0.56 K/uL (0.11-0.59); Monocytes % (auto) 11.6 %; Neutrophils # (auto) 2.75 K/uL (1.40-6.50); Neutrophils % (auto) 56.9 %; Platelet Count 254 K/uL (130-400); RDW Coefficient of Variation 13.9 % (11.5-14.5); RDW Standard Deviation 49.5 fL (36.4-46.3); Red Blood Count 3.18 M/uL (4.20-5.40); White Blood Count 4.83 K/ul (4.8-10.8)
[2024-02-27 07:21] LABS: BUN Creatinine Ratio 13.9 (10-20); Calcium 8.7 mg/dl (8.6-10.3); Creatinine Clr Calc Pharmacy 22.5 ml/min; Potassium 4.2 mmol/L (3.5-5.1)
[2024-02-27] MEDS: HALOPERIDOL LACTATE 5 MG/ML 1 ML VIAL IM PRN (14:25)
--- NOTE | 2024-02-27 16:11 | Hospitalist Progress Note ---
Date of Service February 27, 2024 Assessment & Plan (1) Gastritis: Plan: Transverse epigastric pain that began the evening of 02/22. This is persistent but significantly improved. Denies NSAID/ASA use. Patient w/ poor medication compliance at home. No indication for emergent EGD, hgb stable, no melena - defer outpatient follow up. Troponin WNL on arrival No leukocytosis; afebrile A/P CT suggestive of peptic ulcer disease/gastritis CT also notes mild RLL airspace opacities; however, patient denies respiratory symptoms on arrival No obstructive etiology appreciated Patient denies melena or BRB in stool; Hgb 11.9 on arrival. Patient currently 10.1 g/Norris. Advanced to low fiber diet Continue Protonix 40 mg IV BID and Pepcid 20 mg IV BID Monitor H&H IV pain control as needed IV antiemetics as needed A.m. CBC, BMP (2) Acute metabolic encephalopathy: Plan: Patient w/ confusion. oriented to self. added Zyprexa 2.5mg prior to bed. patient seemed to respond well to this her past hospital stay Haloperidol prn for agitation. nursing mentioned patient going into other rooms 02/26 had lengthy discussion w/ son via phone 02/26 he has concerns for her returning home with her noncompliance also has concerns w/ her worsening confusion repeat urine culture ordered. await results PT/OT recommending short term rehab stay on discharge however son is unsure whether she would be agreeable as she was not agreeable her last hospitalization. (3) Acute kidney injury: Plan: BUN 35, creatinine 2.46 (baseline 0.93), EGFR 19.95 on admission - suspect prerenal due to dehydration/poor PO intake. Creatinine is trending downward BMP reviewed 02/26: 1.22 Avoid nephrotoxic agents where possible AM BMP (4) Severe protein-calorie malnutrition: Plan: BMI 13.0 on arrival Dietitian is consulted Vit B1 level (Thiamin) was <6 on 200 mg po BID (5) Pulmonary hypertension: Plan: Metoprolol succinate 50 mg p.o. daily --> metoprolol tartrate 5 mg IV q6h starting on 02/24 Plan Chronic conditions: Asthma/COPD: continue home inhalers Disposition: Admit to [facility] telemetry Full code Low fiber diet. VTE PPx: Teds Admission and Anticipated Discharge Date Admission Date: February 24, 2024 Subjective Patient seen and examined this morning. patient was confused at time of encounter. patient reports she was upset at her son because she doesn't remember watching a football game with him. She states she feels people are out to get her here. She did report she had no abdominal pain. Physical Exam Constitutional: WD/WN, vitals as above Eyes: PERRL, conjunctivae normal, anicteric sclerae Respiratory: breathing unlabored Cardiovascular: well perfused Psychiatric: oriented to self Results & Data Results & Data Vital Signs (Past 12 Hours) Vital Signs Temp Pulse Pulse Resp BP Pulse Ox O2 Del Method 02/27/24 08:00 Room Air 02/27/24 07:16 36.5 C 68 17 137/77 92 Room Air 02/27/24 07:00 59 L PG Care Time/CCT Total # of Minutes Spent Total Time Spent with Patient: Total time spent is greater than 50% in coordination of care (as documented) at patient's floor/unit and/or counseling patient: Coding Level of Care Code 15832 SUB INP/OBS CARE 3/50MIN Diagnoses Gastritis K29.70 Acute metabolic encephalopathy G93.41 Acute kidney injury N17.9 Severe protein-calorie malnutrition E43 Pulmonary hypertension I27.20
[2024-02-27] MEDS: OLANZAPINE 2.5 MG TAB PO SCH (20:28)
[2024-02-28 09:14] LABS: Hematocrit (blood only) 29.7 % (37.0-47.0); Hemoglobin 9.7 g/dl (12.0-16.0); Mean Corpuscular Hemoglobin 31.6 pg (25.0-34.0); Mean Corpuscular Hgb Conc 32.7 g/dL (32.0-36.0); Mean Corpuscular Volume 96.7 fL (80.0-100.0); Mean Platelet Volume 9.3 fL (9.4-12.4); Platelet Count 280 K/uL (130-400); RDW Coefficient of Variation 14.2 % (11.5-14.5); RDW Standard Deviation 49.8 fL (36.4-46.3); Red Blood Count 3.07 M/uL (4.20-5.40); White Blood Count 4.64 K/ul (4.8-10.8)
[2024-02-28 09:28] LABS: BUN Creatinine Ratio 12.3 (10-20); Calcium 8.6 mg/dl (8.6-10.3); Creatinine Clr Calc Pharmacy 21.2 ml/min; Potassium 4.3 mmol/L (3.5-5.1)
--- NOTE | 2024-02-28 16:17 | Hospitalist Progress Note ---
Date of Service February 28, 2024 Assessment & Plan (1) Gastritis: Plan: Transverse epigastric pain that began the evening of 02/22. This is persistent but significantly improved. Denies NSAID/ASA use. Patient w/ poor medication compliance at home. No indication for emergent EGD, hgb stable, no melena - defer outpatient follow up. Troponin WNL on arrival No leukocytosis; afebrile A/P CT suggestive of peptic ulcer disease/gastritis CT also notes mild RLL airspace opacities; however, patient denies respiratory symptoms on arrival No obstructive etiology appreciated Patient denies melena or BRB in stool; Hgb 11.9 on arrival. Patient currently 9.7 g/Norris. Advanced to low fiber diet Continue Protonix 40 mg IV BID and Pepcid 20 mg IV BID Monitor H&H IV pain control as needed IV antiemetics as needed A.m. CBC, BMP (2) Acute metabolic encephalopathy: Plan: Patient w/ confusion. oriented to self and place Patient w/ paranoid delusions. added Zyprexa 2.5mg prior to bed. patient seemed to respond well to this her past hospital stay Haloperidol prn for agitation. nursing mentioned patient going into other rooms 02/26 had lengthy discussion w/ son via phone 02/26 he has concerns for her returning home with her noncompliance also has concerns w/ her worsening confusion repeat urine culture ordered. await results Consulted Psychiatry 02/27, appreciate recommendations (3) Acute kidney injury: Plan: BUN 35, creatinine 2.46 (baseline 0.93), EGFR 19.95 on admission - suspect prerenal due to dehydration/poor PO intake. Creatinine is trending downward BMP reviewed 02/27: 1.30 Avoid nephrotoxic agents where possible AM BMP (4) Severe protein-calorie malnutrition: Plan: BMI 13.0 on arrival Dietitian is consulted Vit B1 level (Thiamin) was <6 on 200 mg po BID (5) Pulmonary hypertension: Plan: Metoprolol succinate 50 mg p.o. daily --> metoprolol tartrate 5 mg IV q6h starting on 02/24 Plan Chronic conditions: Asthma/COPD: continue home inhalers Disposition: Admit to [facility] telemetry Full code Low fiber diet. VTE PPx: Teds Admission and Anticipated Discharge Date Admission Date: February 24, 2024 Subjective Patient seen and examined this morning. Patient AxOx2. Patient with paranoid comments during her visit today. She is concerned people are out to get her. She was also upset as she was told she was being "dismissed" today. Patient yelling during time of encounter. Physical Exam Constitutional: WD/WN, vitals as above Eyes: PERRL, conjunctivae normal, anicteric sclerae Respiratory: breathing unlabored Cardiovascular: well perfused Psychiatric: AxOx2 Results & Data Results & Data Vital Signs (Past 12 Hours) Vital Signs Temp Pulse Resp BP BP Pulse Ox O2 Del Method 02/28/24 15:15 36.6 C 84 18 98/62 L 99 Room Air 02/28/24 10:58 36.5 C 83 18 108/67 100 Room Air 02/28/24 09:28 36.5 C 70 18 105/65 99 Room Air PG Care Time/CCT Total # of Minutes Spent Total Time Spent with Patient: Total time spent is greater than 50% in coordination of care (as documented) at patient's floor/unit and/or counseling patient: Coding Level of Care Code 09599 SUB INP/OBS CARE 2/35MIN Diagnoses Gastritis K29.70 Acute metabolic encephalopathy G93.41 Acute kidney injury N17.9 Severe protein-calorie malnutrition E43 Pulmonary hypertension I27.20
[2024-02-29 08:12] LABS: Hematocrit (blood only) 29.9 % (37.0-47.0); Hemoglobin 9.9 g/dl (12.0-16.0); Mean Corpuscular Hemoglobin 31.9 pg (25.0-34.0); Mean Corpuscular Hgb Conc 33.1 g/dL (32.0-36.0); Mean Corpuscular Volume 96.5 fL (80.0-100.0); Mean Platelet Volume 9.1 fL (9.4-12.4); Platelet Count 258 K/uL (130-400); RDW Coefficient of Variation 14.1 % (11.5-14.5); RDW Standard Deviation 49.6 fL (36.4-46.3); White Blood Count 5.05 K/ul (4.8-10.8)
[2024-02-29 08:32] LABS: BUN Creatinine Ratio 17.5 (10-20); Calcium 8.7 mg/dl (8.6-10.3); Creatinine Clr Calc Pharmacy 27.4 ml/min; Phosphorus 2.3 mg/dl (2.5-4.9)
--- NOTE | 2024-02-29 11:47 | Psychiatric Consultation ---
Date of Consultation February 29, 2024 Impression / Recommendations Impression Diagnostically consistent with encephalopathy/delirium, possibly superimposed on mild cognitive impairment at baseline. Unfortunately there are no known medications to cure or shorten the duration of delirium; rather antipsychotics are used at times to help with sleep/appetite/psychomotor agitation and hallucinations if these symptoms are causing significant distress and/or interfering with acute safety. Duration of delirium varies broadly with persistent delirium (defined as lasting for weeks or months) occurring frequently with [id number]% of patients exhibiting some symptoms of delirium at 6 months after symptom onset, see:Mia Singh., Isai Romero., Giselle Adamet al.Delirium.Estefany Rev Dis Primers6, 90 (2020). [email or web address]. Note all antipsychotic medications carry black box warning for increased risk of all-cause mortality in setting of dementia if cognitive impairment is present in addition to the new delirium. Overall, I spent a total of 45 minutes with this case including review of chart records, review of labwork, review of EKG QTc, direct evaluation of the patient at bedside, counseling the patient, discussion of the patient with the hospitalist provider, discussion with the psychiatric liason during clinical rounds and documentation in the electronic health record. (1) Acute metabolic encephalopathy: (2) Insomnia: Plan -Agree with 1-on-1 prn -Could trial higher dose of olanzapine 5mg HS po to see if this improves sleep and lessens agitation -If unsuccessful then would trial Seroquel 12.5 mg or 25mg qhs and can titrate up to 50mg HS and additional 12.5mg qAM dose for behavioral management as needed; would check EKG QTc routinely. -Would add melatonin 3mg qhs -Continue medical workup to rule out and treat any underlying causes contributing to potential delirium, avoid or limit use of deliriogenic medications (benzodiazepines, opioids, anticholinergics) -Continue with delirium prevention measures: raising blinds during the day, closing at night, frequent re-orientation, contact with family/friends, explaining procedures/nursing care measures prior to physical contact, correct any hearing and visual impairments -For behavioral emergency: olanzapine 2.5 mg IM x 1 (DO NOT exceed 10mg per 24 hours, check EKG if IM dose required, NEVER co-administer with IM or IV benzodiazepines). Psych History Identifying Data 73 yo woman with a history of asthmaCOPD overlap syndrome, pulmonary hypertension, dysphagia, GERD, food impaction of the esophagus, bronchiectasis, and severe proteincalorie malnutrition, possible cognitive impairment, recent hospitalization for UTI admitted for increased gastritis, GAVIN. Psychiatry consulted for recommendations for paranoid delusions. Chief Complaint "I can't think of it right now". History of Present Illness Cuca was admitted for worsening epigastric pain and noted by family to have worsening confusion. She was recently admitted in early February for UTI and encephalopathy with periods of acute agitation which responded well to scheduled olanzapine 2.5mg HS po. During this admission she's been agitated at times, required IM haldol on the afternoon of 02/27/2024, and demonstrated paranoia and confusion. She's been getting olanzapine 2.5mg po HS but still with poor sleep. Ongoing delirium interventions including light exposure, movement, re-orientation efforts. Today she is oriented to person and month (also knows giving is upcoming) but not to year (1923) and knows hospital but not name, doesn't know city or state. She recognizes her lack of city and state orientation is abnormal citing frustration that "I usually know this, it's all blocked right now". Asks me the same question a few times with seemingly short-term memory deficits. Was noted to be awake last night from 1-3am and she agrees with having poor sleep. Agrees she's been more confused. Denies SI but reports feeling anxious due to worrying about one of her sons, who moved in with her. She thinks he has taken her car and fears he may get into a car accident with it. Allergies Allergy/AdvReac Type Severity Reaction Status Date / Time ciprofloxacin [From Cipro] Allergy Rash Verified 11/10/23 13:52 Penicillins Allergy Rash Verified 11/10/23 13:52 Sulfa (Sulfonamide Allergy Rash Verified 11/10/23 13:52 Antibiotics) Home Medications Medication Instructions Recorded Confirmed Type sumatriptan succinate 100 mg tablet 100 mg PO UD PRN Migraine Headache 03/16/21 02/24/24 History Flutter Valve #1 ea 11/15/23 11/15/23 Rx budesonide 160 mcg-glycopyr 9 2 inh inhalation BID #10.7 grams 11/15/23 02/24/24 Rx mcg-formot 4.8 mcg/actuation HFA inhaler (Breztri Aerosphere) guaifenesin 600 mg tablet, 600 mg PO BID PRN congestion #60 11/15/23 02/24/24 Rx extended release 12 hr (Mucinex) tabs metoprolol succinate 100 mg 50 mg (1/2 x 100 mg) PO DAILY #0 02/11/24 02/24/24 Rx tablet,extended release 24 hr tabs olanzapine 2.5 mg tablet 2.5 mg PO HS PRN night-time 02/11/24 02/24/24 Rx confusion/agitation #14 tabs pantoprazole 40 mg tablet,delayed 40 mg PO QAM #30 tabs 02/11/24 02/24/24 Rx release thiamine HCl (vitamin B1) 100 mg 200 mg (2 x 100 mg) PO BID 30 days 02/11/24 02/24/24 Rx tablet #120 tabs Patient History Social History Smoking Status: Never smoker Tobacco Type: Cigarettes Hx Alcohol Use: Yes Alcohol type: wine Hx Substance Use: No Preferred Language: [place] Communication Ability: Effective 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 Beliefs That Will Affect Care: None Current Living Situation: Alone Current Living Situation Comment: Patient stated that passed 3 years ago and she has lived alone Feels Safe at Home: Yes Safety Concerns: Feels Safe At This Time Assistive Devices: None Physical Exam Psychiatric: Orientation: alert and oriented to person; + not oriented to place and + not oriented to time Apperance: appropriately dressed Eye Contact: good eye contact Motor Behavior: no abnormal motor movements Speech: normal rate/rhythm/volume of speech Affect: + labile affect Mood: + anxious mood Thought Process: + looseness of associations Thought Content: + preoccupation Suicidal Thoughts: denies suicidal thoughts Homicidal Thoughts: denies homicidal thoughts Hallucinations: no auditory hallucinations and no visual hallucinations Cognition: language grossly intact; + recent memory not intact and + attention not intact Insight: + severely impaired insight Judgment: + severely impaired judgement Vital Signs (Past 24 Hours): Last Vital Signs Temp 36.4 C L 02/29/24 08:28 Pulse 60 02/29/24 08:28 Resp 16 02/29/24 08:28 BP 132/75 02/29/24 08:28 Pulse Ox 97 02/29/24 08:28 O2 Del Method Room Air 02/29/24 09:28 Results & Data (PSY) Medications Administered Acetaminophen (Acetaminophen 325 Mg Tab) 650 mg PO Q4H PRN PRN Reason: Pain or Fever Stop: 03/26/24 11:54 Last Admin: 02/28/24 15:09 Dose: 650 mg Documented By: Admin: 02/26/24 17:10 Dose: 650 mg Documented By: Admin: 02/26/24 10:07 Dose: 650 mg Documented By: HARJINDERH Fluticasone Furoate (Fluticasone Furoate 200mcg 14 Puffs/Inhaler) 1 puffs INH DAILY JANET Stop: 03/25/24 20:59 Last Admin: 02/29/24 07:47 Dose: 1 puffs Documented By: Admin: 02/28/24 09:51 Dose: 1 puffs Documented By: Admin: 02/27/24 09:20 Dose: 1 puffs Documented By: Admin: 02/26/24 08:30 Dose: 1 puffs Documented By: Admin: 02/25/24 08:36 Dose: 1 puffs Documented By: Admin: 02/24/24 20:35 Dose: 1 puffs Documented By: CHRISTINAT Haloperidol Lactate (Haloperidol Lactate 5 Mg/Ml 1 Ml Vial) 0.5 mg IM Q4H PRN PRN Reason: Agitation Stop: 03/28/24 14:11 Last Admin: 02/27/24 14:25 Dose: 0.5 mg Documented By: JACKI Famotidine (Pepcid 20mg Iv Push) 20 mg in 5 mls @ 2.5 mls/min IV Q12H JANET Stop: 03/25/24 17:59 Last Admin: 02/29/24 05:34 Dose: 2.5 mls/min Documented By: Admin: 02/28/24 17:38 Dose: 2.5 mls/min Documented By: Admin: 02/28/24 06:42 Dose: 2.5 mls/min Documented By: Admin: 02/27/24 17:21 Dose: 2.5 mls/min Documented By: Admin: 02/27/24 09:22 Dose: 2.5 mls/min Documented By: Admin: 02/26/24 17:10 Dose: 2.5 mls/min Documented By: Admin: 02/26/24 08:23 Dose: 2.5 mls/min Documented By: Admin: 02/25/24 17:06 Dose: 2.5 mls/min Documented By: Admin: 02/25/24 08:35 Dose: 2.5 mls/min Documented By: Admin: 02/24/24 17:55 Dose: 2.5 mls/min Documented By: KEVIN Pantoprazole Sodium (Protonix) 40 mg in 10 mls @ 5 mls/min IV BID JANET Stop: 03/25/24 20:59 Last Admin: 02/29/24 07:49 Dose: 5 mls/min Documented By: Admin: 02/28/24 21:05 Dose: 5 mls/min Documented By: Admin: 02/28/24 09:50 Dose: 5 mls/min Documented By: Admin: 02/27/24 20:30 Dose: 5 mls/min Documented By: Admin: 02/27/24 09:21 Dose: 5 mls/min Documented By: Admin: 02/26/24 21:44 Dose: 5 mls/min Documented By: Admin: 02/26/24 08:23 Dose: 5 mls/min Documented By: Admin: 02/25/24 21:15 Dose: 5 mls/min Documented By: planning analyst: 02/25/24 08:36 Dose: 5 mls/min Documented By: Admin: 02/24/24 20:35 Dose: 5 mls/min Documented By: FREDERICK Melatonin (Melatonin 3 Mg Tab) 3 mg PO HS PRN PRN Reason: Sleep Stop: 03/26/24 21:34 Last Admin: 02/28/24 21:09 Dose: 3 mg Documented By: Admin: 02/27/24 20:58 Dose: 3 mg Documented By: Admin: 02/26/24 21:42 Dose: 3 mg Documented By: Admin: 02/25/24 21:44 Dose: 3 mg Documented By: MED Metoprolol Succinate (Metoprolol Succ 50mg Ext Rel Tab) 50 mg PO DAILY JANET Stop: 03/27/24 08:59 Last Admin: 02/29/24 07:48 Dose: 50 mg Documented By: Admin: 02/28/24 10:56 Dose: 50 mg Documented By: Admin: 02/27/24 09:21 Dose: 50 mg Documented By: Admin: 02/26/24 08:23 Dose: 50 mg Documented By: ASHWINI Olanzapine (Olanzapine 2.5 Mg Tab) 2.5 mg PO HS JANET Stop: 03/28/24 20:59 Last Admin: 02/28/24 21:04 Dose: 2.5 mg Documented By: Admin: 02/27/24 20:28 Dose: 2.5 mg Documented By: DWAYNE Thiamine HCl (Thiamine Hcl 100 Mg Tab) 200 mg PO BID JANET Stop: 03/26/24 11:59 Last Admin: 02/29/24 07:48 Dose: 200 mg Documented By: Admin: 02/28/24 21:07 Dose: 200 mg Documented By: Admin: 02/28/24 09:50 Dose: 200 mg Documented By: Admin: 02/27/24 20:28 Dose: 200 mg Documented By: Admin: 02/27/24 09:21 Dose: 200 mg Documented By: Admin: 02/26/24 21:44 Dose: 200 mg Documented By: Admin: 02/26/24 08:24 Dose: 200 mg Documented By: Admin: 02/25/24 21:16 Dose: 200 mg Documented By: planning analyst: 02/25/24 14:01 Dose: 200 mg Documented By: TMP Umeclidinium/Vilanterol (Umeclidinium/Vilanterol 62.5/25mcg 7 Puffs/Inhaler) 1 puffs INH DAILY JANET Stop: 03/25/24 20:59 Last Admin: 02/29/24 07:49 Dose: 1 puffs Documented By: Admin: 02/28/24 09:51 Dose: 1 puffs Documented By: Admin: 02/27/24 09:20 Dose: 1 puffs Documented By: Admin: 02/26/24 08:23 Dose: 1 puffs Documented By: Admin: 02/25/24 08:35 Dose: 1 puffs Documented By: Admin: 02/24/24 20:35 Dose: 1 puffs Documented By: HNT Coding Level of Care Code 98267 IN/OBS CONSULT LVL 3,45M Diagnoses Acute metabolic encephalopathy G93.41 Insomnia G47.00
[2024-02-29] MEDS ORDERED: OLANZapine 10 MG/2.1 ML SDV IM PRN (12:30)
--- NOTE | 2024-02-29 13:49 | Hospitalist Progress Note ---
Date of Service February 29, 2024 Assessment & Plan (1) Gastritis: Plan: Transverse epigastric pain that began the evening of 02/22. This is persistent but significantly improved. Denies NSAID/ASA use. Patient w/ poor medication compliance at home. No indication for emergent EGD, hgb stable, no melena - defer outpatient follow up. Troponin WNL on arrival No leukocytosis; afebrile A/P CT suggestive of peptic ulcer disease/gastritis CT also notes mild RLL airspace opacities; however, patient denies respiratory symptoms on arrival No obstructive etiology appreciated Patient denies melena or BRB in stool; Hgb 11.9 on arrival. Patient currently 9.7 g/Norris. Advanced to low fiber diet Continue Protonix 40 mg IV BID and Pepcid 20 mg IV BID Monitor H&H IV pain control as needed IV antiemetics as needed A.m. CBC, BMP (2) Acute metabolic encephalopathy: Plan: Patient w/ confusion. oriented to self and place Patient w/ paranoid delusions. added Zyprexa 2.5mg prior to bed. patient seemed to respond well to this her past hospital stay Haloperidol prn for agitation. nursing mentioned patient going into other rooms 02/26 had lengthy discussion w/ son via phone 02/26 he has concerns for her returning home with her noncompliance also has concerns w/ her worsening confusion repeat urine culture ordered. await results Psychiatry consult reviewed 02/28 consistent w/ hospital delirium increase Olanzapine to 5mg PO HS Olanzapine 2.5mg IM in event of behavioral health emergency. EKG prior to dose Add Melatonin 3mg HS If Olanzapine ineffective, consider Seroquel 12.5mg or 25mg HS Discussed on phone w/ Viet (patient's son) 02/28 - her delirium may linger, no timeline for how long this will last. Patient stable for discharge if she will have close supervision at home. patient does live with her other son will reassess her mental status in AM, if improved consider discharge. (3) Acute kidney injury: Plan: BUN 35, creatinine 2.46 (baseline 0.93), EGFR 19.95 on admission - suspect prerenal due to dehydration/poor PO intake. Creatinine is trending downward BMP reviewed 02/28: 0.97 Avoid nephrotoxic agents where possible AM BMP (4) Severe protein-calorie malnutrition: Plan: BMI 13.0 on arrival Dietitian is consulted Vit B1 level (Thiamin) was <6 on 200 mg po BID (5) Pulmonary hypertension: Plan: Metoprolol succinate 50 mg p.o. daily --> metoprolol tartrate 5 mg IV q6h starting on 02/24 Plan Chronic conditions: Asthma/COPD: continue home inhalers Disposition: Admit to [facility] telemetry Full code Low fiber diet. VTE PPx: Teds Discussed plan of care w/ son via phone 02/28 Admission and Anticipated Discharge Date Admission Date: February 24, 2024 Subjective Patient seen and examined this morning. corporate trust officer at bedside. Patient AxOx2 at time of encounter. Patient offered no symptoms today. She states she did not have a good breakfast because her toast was hard. Seemed more oriented today compared to previous days. Physical Exam Constitutional: WD/WN, vitals as above Eyes: PERRL, conjunctivae normal, anicteric sclerae Respiratory: breathing unlabored Cardiovascular: well perfused Gastrointestinal (Abdomen): negative tenderness to palpation. +BS Psychiatric: AxOx2 Results & Data Results & Data Vital Signs (Past 12 Hours) Vital Signs Temp Pulse Resp BP Pulse Ox O2 Del Method 02/29/24 09:28 Room Air 02/29/24 08:28 36.4 C L 60 16 132/75 97 Room Air PG Care Time/CCT Total # of Minutes Spent Total Time Spent with Patient: Total time spent is greater than 50% in coordination of care (as documented) at patient's floor/unit and/or counseling patient: Coding Level of Care Code 82623 SUB INP/OBS CARE 3/50MIN Diagnoses Gastritis K29.70 Acute metabolic encephalopathy G93.41 Acute kidney injury N17.9 Severe protein-calorie malnutrition E43 Pulmonary hypertension I27.20
[2024-02-29] MEDS: FAMOTIDINE 20 MG TAB PO SCH (20:04)
[2024-02-29] MEDS: PANTOprazole 40 MG TAB PO SCH (20:04)
[2024-02-29] MEDS: MELATONIN 3 MG TAB PO SCH (20:04)
[2024-02-29] MEDS: OLANZapine 5 MG TABLET PO SCH (20:04)
[2024-03-01 06:49] LABS: Hematocrit (blood only) 31.4 % (37.0-47.0); Hemoglobin 10.5 g/dl (12.0-16.0); Mean Corpuscular Hemoglobin 32.4 pg (25.0-34.0); Mean Corpuscular Hgb Conc 33.4 g/dL (32.0-36.0); Mean Corpuscular Volume 96.9 fL (80.0-100.0); Mean Platelet Volume 9.2 fL (9.4-12.4); Platelet Count 266 K/uL (130-400); RDW Coefficient of Variation 14.2 % (11.5-14.5); RDW Standard Deviation 50.1 fL (36.4-46.3); Red Blood Count 3.24 M/uL (4.20-5.40); White Blood Count 5.34 K/ul (4.8-10.8)
[2024-03-01 07:21] LABS: BUN Creatinine Ratio 21.4 (10-20); Calcium 8.8 mg/dl (8.6-10.3); Creatinine Clr Calc Pharmacy 31.6 ml/min; Potassium 4.1 mmol/L (3.5-5.1)
--- NOTE | 2024-03-01 15:28 | Hospitalist Progress Note ---
Date of Service March 01, 2024 Assessment & Plan (1) Gastritis: Plan: Transverse epigastric pain that began the evening of 02/22. This is persistent but significantly improved. Denies NSAID/ASA use. Patient w/ poor medication compliance at home. No indication for emergent EGD, hgb stable, no melena - defer outpatient follow up. Troponin WNL on arrival No leukocytosis; afebrile A/P CT suggestive of peptic ulcer disease/gastritis CT also notes mild RLL airspace opacities; however, patient denies respiratory symptoms on arrival No obstructive etiology appreciated Patient denies melena or BRB in stool; Hgb 11.9 on arrival. Patient currently 9.7 g/Norris. Advanced to low fiber diet Continue Protonix 40 mg IV BID and Pepcid 20 mg IV BID Monitor H&H IV pain control as needed IV antiemetics as needed A.m. CBC, BMP (2) Acute metabolic encephalopathy: Plan: Patient w/ confusion. oriented to self and place Patient w/ paranoid delusions. added Zyprexa 2.5mg prior to bed. patient seemed to respond well to this her past hospital stay Haloperidol prn for agitation. nursing mentioned patient going into other rooms 02/26 had lengthy discussion w/ son via phone 02/26 he has concerns for her returning home with her noncompliance also has concerns w/ her worsening confusion repeat urine culture ordered. await results Psychiatry consult reviewed 02/28 consistent w/ hospital delirium increase Olanzapine to 5mg PO HS Olanzapine 2.5mg IM in event of behavioral health emergency. EKG prior to dose Add Melatonin 3mg HS If Olanzapine ineffective, consider Seroquel 12.5mg or 25mg HS Discussed on phone w/ Viet (patient's son) 02/28 - her delirium may linger, no timeline for how long this will last. Patient stable for discharge if she will have close supervision at home. patient does live with her other son (3) Acute kidney injury: Plan: BUN 35, creatinine 2.46 (baseline 0.93), EGFR 19.95 on admission - suspect prerenal due to dehydration/poor PO intake. Creatinine is trending downward BMP reviewed 03/01: 0.84 Avoid nephrotoxic agents where possible AM BMP (4) Severe protein-calorie malnutrition: Plan: BMI 13.0 on arrival Dietitian is consulted Vit B1 level (Thiamin) was <6 on 200 mg po BID (5) Pulmonary hypertension: Plan: Metoprolol succinate 50 mg p.o. daily --> metoprolol tartrate 5 mg IV q6h starting on 02/24 Plan Chronic conditions: Asthma/COPD: continue home inhalers Disposition: Admit to [facility] telemetry Full code Low fiber diet. VTE PPx: Teds Discussed plan of care w/ sons 03/01 Nursing staff concerned with patient going home to live with her son Jayjay. Charge nurse notified to have witnesses contact office of aging. plan to hopefully discuss concerns with son Viet who is eldest child on 03/02. Admission and Anticipated Discharge Date Admission Date: February 24, 2024 Subjective Patient seen and examined this morning. Patient's two sons there at time of encounter. Patient thought she was in a custodial this morning. She was easily re- directed to know she was in a hospital. Patient was AxOx3 at time of my encounter. Physical Exam Constitutional: WD/WN, vitals as above Eyes: PERRL, conjunctivae normal, anicteric sclerae Psychiatric: AxOx3 Results & Data Results & Data Vital Signs (Past 12 Hours) Vital Signs Temp Pulse Resp BP Pulse Ox O2 Del Method 03/01/24 15:10 36.7 C 84 20 99/59 L 90 Room Air 03/01/24 07:46 36.4 C L 62 16 115/76 100 Room Air 03/01/24 07:42 Room Air PG Care Time/CCT Total # of Minutes Spent Total Time Spent with Patient: Total time spent is greater than 50% in coordination of care (as documented) at patient's floor/unit and/or counseling patient: Coding Level of Care Code 41413 SUB INP/OBS CARE 2/35MIN Diagnoses Gastritis K29.70 Acute metabolic encephalopathy G93.41 Acute kidney injury N17.9 Severe protein-calorie malnutrition E43 Pulmonary hypertension I27.20
[2024-03-01] MEDS: MELATONIN 3 MG TAB PO ONE (22:52)
[2024-03-01] MEDS: DICLOFENAC SOD 1% GEL 100 GM TUBE EXT PRN (22:52)
[2024-03-02 09:09] VITALS: PULSE 79; RESP 18; TEMP 97.9; O2SAT 99
--- NOTE | 2024-03-02 11:22 | Discharge Summary ---
Discharge Summary Date of Service March 02, 2024 Principal Dx & Hospital Course #1 = Principal Diagnosis (1) Gastritis: Transverse epigastric pain that began the evening of 02/22. This is persistent but significantly improved. Denies NSAID/ASA use. Patient w/ poor medication compliance at home. No indication for emergent EGD, hgb stable, no melena - defer outpatient follow up. Workup: troponin WNL on arrival, no leukocytosis, afebrile CTAP suggestive of PUD/gastritis. also w/ RLL airspace opacities but patient denies respiratory s/s on arrival Hgb stable PPI BID on discharge. (2) Acute metabolic encephalopathy: Patient w/ confusion. oriented to self and place Patient w/ paranoid delusions. Psych consult 02/28 consistent w/ hospital delirium Olanzapine 5mg PO HS during hospital stay w/ 2.5mg IM for behavioral emergency. added Melatonin HS Confusion improved 03/02 - patient AxOx3 Staff concerned regarding patient's safety at home discussed w/ staff to report to office of aging Per patient she does feel safe at home and is oriented x 3 therefore she can be safely discharged. Discussed w/ (3) Acute kidney injury: BUN 35, creatinine 2.46 (baseline 0.93), EGFR 19.95 on admission - suspect prerenal due to dehydration/poor PO intake. Creatinine normalized prior to discharge encourage PO hydration outpatient. (4) Severe protein-calorie malnutrition: BMI 13.0 on arrival Vit B1 level (Thiamin) was <6 on 200 mg po BID - continue outpatient Encourage nutritional supplements (5) Pulmonary hypertension: Resume metoprolol succinate on discharge. Plan Chronic conditions: Asthma/COPD: continue home inhalers Discussed discharge w/ wanda Llanosdest son 03/02 Admission HPI Per Admitting Provider Annika is a 73-year-old female with PMH of asthmaCOPD overlap syndrome, pulmo nary hypertension, dysphagia, GERD, food impaction of the esophagus, bronchiectasis, and severe proteincalorie malnutrition. She presented on 02/23 for epigastric pain. She reports the pain is located just below her rib cage, and cuts transversely across the upper abdomen on both sides. The pain started last night, and she reports that it comes in waves. She characterizes it as a dull, achy pain that she rates 4/10 at present. The pain woke her from sleep multiple times last night. She did not take any pain medicine prior to coming into the hospital. Patient is unsure if it radiates to her back. No radiation to her lower stomach, chest, shoulders, or jaw. She believes that the pain is sometimes worse with movements. She does have a history of GERD/reflux. She reports she has had prior pain similar to this episode, but it never lasted this long. No history of peptic ulcers or GI bleeds, to her knowledge; however, she reports her father had bad peptic ulcers. She does not believe she has ever had a colonoscopy, and is unsure if she is ever had an EGD. No recent NSAID/aspirin use; she normally uses Tylenol as needed for headaches. Patient currently lives with her youngest son in [place]. She reports that she took her regular medicines today (metoprolol); she reports she does not take Protonix on a daily basis despite being on her med list. She manages her own medicine at home; no recent change in medications. No recent injuries to the chest wall or stomach. No sick contacts. No recent change in diet, but she reports she is not eating as much as she usually does; she reports she is drinking okay. Patient denies smoking, tobacco use, recent alcohol use. Additionally, she reports that she is prone to UTIs, and was admitted here 3 weeks ago for UTI; she request that we check her for UTI while she is here. Patient's vitals are stable at time of admission. ED course: Protonix bolus + IV drip NSS 1000 L IV Morphine 4 mg IV Zofran 4 mg IV ROS: Patient endorses epigastric pain, lightheadedness (intermittent with standing), RIDER, nausea, and dry heaves. Patient denies fever, chills, night-sweats, syncope, falls, SOB, pleuritic CP, cough, vomiting, diarrhea, burning with urination, changes in urinary/bowel, melena, or BRB in the urine or stool. Spoke to patient's son at bedside and provided update regarding labs/imaging/admission status. Per son, the patient does have a history of peptic ulcers x 2 in the past, accompanied by GI bleed. He believes that she needed to have an EGD done back at a hospital in [facility] (10 years ago). Son reports that the patient manages her own medicine at home, but he believes she has not been taking Protonix, which was originally prescribed upon discharge 02/10. Only other medications prescribed upon discharge were Keflex x 3 days and olanzapine at bedtime. Discharge Exam Constitutional WD/WN, vitals as above Eyes PERRL, conjunctivae normal, anicteric sclerae Respiratory breathing unlabord Cardiovascular well perfused Psychiatric A+Ox3, euthymic affect Discharge Plan Discharge Items Patient Disposition: Home - Self-Care Reason For Visit: PEPTIC ULCER DISEASE/GASTRITIS, GAVIN Discharge Diagnosis: Gastritis Activity: Resume your previous activity Non-emergency contact: Primary Care Provider Call non-emergency contact if: you have any medication questions, your symptoms worsen and your pain is not controlled Follow-up/Referrals: Kelly Zelaya DO [Primary Care Provider] - Diet: Regular Addtl Attending Provider Instructions: Ms. Augustin, You were recently in the hospital for abdominal pain. You were found to have inflammation of your stomach along with a possible ulcer. You were treated appropriately with medications to help decrease the inflammation. You were also found to have abnormal kidney numbers secondary to dehydration. Please see recommendations below regarding your discharge. 1. Please take pantoprazole twice a daily 2. Please continue on your inhalers, metoprolol, thiamine outpatient. 3. Please make sure you are drinking an adequate amount of fluids. 4. We recommend a nutritional supplement such as boost to aide with being underweight. 5. Please avoid Imodium unless you have multiple episodes of liquid stool. 6. You no longer need your Zyprexa prescription for confusion but if you do have issues with sleep please use melatonin as needed. If you develop any worsening symptoms including weakness, fever, chills, chest pain, or shortness of breath please report to the ER for further care. Pending Studies at Discharge: No Stand-Alone Forms: My atVenu, Smoking Cessation Medications and DC Order Prescriptions: New pantoprazole 40 mg Tablet,Delayed Release (Dr/Ec) 40 mg PO BID Qty: 60 0RF Continued guaifenesin [Mucinex] 600 mg tablet extended release 12hr 600 mg PO BID PRN (Reason: congestion) Qty: 60 1RF Rx Instructions: Take 1 tab p.o. twice a day for 7 days and then as needed Breztri Aerosphere 160-9-4.8 mcg/actuation HFA aerosol inhaler 2 inh inhalation BID Qty: 10.7 5RF sumatriptan succinate 100 mg Tablet 100 mg PO UD PRN (Reason: Migraine Headache) Rx Instructions: Take for severe migraine, no more than 2 in 24 hours thiamine HCl (vitamin B1) 100 mg Tablet 200 mg PO BID 30 Days Qty: 120 0RF metoprolol succinate 100 mg Tablet Extended Release 24 Hr 50 mg PO DAILY Qty: 0 0RF Discontinued olanzapine 2.5 mg Tablet 2.5 mg PO HS PRN (Reason: night-time confusion/agitation) Qty: 14 0RF pantoprazole 40 mg Tablet,Delayed Release (Dr/Ec) 40 mg PO QAM Qty: 30 5RF No Action (DME) Flutter Valve Device See Rx Instructions .MEDSUPPLY Qty: 1 0RF Rx Instructions: Use it every 6 hours when awake. Discharge Orders: Discharge Order (Routine); Ordered 03/02/24 Ordered By: Ene Douglass Admission Data Admit Date/Time: 02/24/24 11:17 Attending Provider: Apolonia Ramirez Admit Provider: Zane De Souza Primary Care Provider: Kelly Zelaya Other Providers: Zane De Souza; Brittany Montgomery; Mikey Aguilar; Nithya Bowen; Mariana Cramer; Homer Demarco; Zenia Nicholas Other Interventions: Discharge Summary Assessment (RN) Last Done: 03/02/24 12:01 Hospital Stay Data Consultations 02/24/24 10:46 ED Decision to Admit Stat 02/28/24 16:10 Consult Psychiatry Routine Diagnostic Imagining Performed 02/24/24 10:05 CT abd pelvis wo con Stat Pending Results Patient Have Any Pending Studies at Discharge: No Discharge Instructions Given to Patient (Per Discharging Provider) Ms. Augustin, You were recently in the hospital for abdominal pain. You were found to have inflammation of your stomach along with a possible ulcer. You were treated appropriately with medications to help decrease the inflammation. You were also found to have abnormal kidney numbers secondary to dehydration. Please see recommendations below regarding your discharge. 1. Please take pantoprazole twice a daily 2. Please continue on your inhalers, metoprolol, thiamine outpatient. 3. Please make sure you are drinking an adequate amount of fluids. 4. We recommend a nutritional supplement such as boost to aide with being underweight. 5. Please avoid Imodium unless you have multiple episodes of liquid stool. 6. You no longer need your Zyprexa prescription for confusion but if you do have issues with sleep please use melatonin as needed. If you develop any worsening symptoms including weakness, fever, chills, chest pain, or shortness of breath please report to the ER for further care. Total Time Total Time Spent Total Time Spent (In Minutes): 40 Total Time Includes: Examination of the Patient, Discharge Planning and Medication Reconciliation Coding Level of Care Code 72742 INP/OBS DISCH >30 MIN Diagnoses Gastritis K29.70 Acute metabolic encephalopathy G93.41 Acute kidney injury N17.9 Severe protein-calorie malnutrition E43 Pulmonary hypertension I27.20
[2024-03-02 12:03] VITALS: BP 132/75
== END 2024-03-02 12:37 | disposition home or self-care (01) | DRG 391 ==
LOC: ED 09:00 → SUATTDRO 11:17 → EDINP 11:17 → 2N 13:45

== ENCOUNTER 2024-04-23 16:58 | Inpatient (IN) ==
[2024-04-23] MEDS: SODIUM CHLORIDE 0.9% 500 ML IV ONE ×2 (17:52→18:55)
--- NOTE | 2024-04-23 17:52 | Emergency Department Note ---
Impression & Plan Weakness, Elevated troponin, Dehydration, Acute UTI ED Provider Note NAME: ZACH FLOOD AGE: 73 SEX: F : 1950 ARRIVES VIA: Ambulance INFORMANT: [Patient][nursing] ED PROVIDER(S): [Jeffrey Garcia MD] CHIEF COMPLAINT: Illness, weakness HISTORY OF PRESENT ILLNESS: The patient is a 73-year-old female whose had several days of lightheadedness. Her appetite has been decreased. She has noticed a slight cough and some mild shortness of breath. Additionally, the patient noticed some blood in her urine and she is concerned for UTI. There has been no fever, no abdominal pain. The patient states that she believes she has a UTI, she is prone to this type of infection. She typically feels this way when she has a UTI. Of note, the patient presents by ambulance, she lives with her son. PMHx/PSHx/Social Hx: See Below PHYSICAL EXAM: GENERAL: Patient is in no acute distress. Quite thin and frail. HEENT: No acute trauma, normocephalic atraumatic, mucous membranes dry, no nasal congestion. NECK: No stridor, no adenopathy, no meningismus, trachea is midline. LUNGS: Clear to auscultation bilaterally, no wheeze, no rhonchi, breath sounds equal. HEART: Without murmurs gallops or rubs, regular rate and rhythm. ABDOMEN: Soft, nontender, no peritonitis. EXTREMITIES: No cyanosis, full range of motion of all the joints without pain or difficulty. NEUROLOGIC: Oriented x 3, no acute motor or sensory deficits, no focal weakness. SKIN: No jaundice, no diaphoresis. DIFFERENTIAL DIAGNOSIS: UTI, dehydration, viral illness, bronchitis or pneumonia, CO, among others. EMERGENCY DEPARTMENT PROCEDURES: MEDICAL DECISION MAKING: There is no leukocytosis or concerning anemia. There is a normal platelet count. No renal failure or significant electrolyte abnormality. No concerning liver enzyme elevation. Patient appears to be in a euthyroid state. Urinalysis does suggest infection. Respiratory bio fire was negative. Chest x-ray shows COPD, no pneumonia or CHF. ECG shows a sinus rhythm with a poor baseline. There was no acute ischemic change. Cardiac enzyme testing x 2 is somewhat elevated. This troponin elevation could be secondary to mismatch from her infection versus cardiac injury. On exam, the patient appeared dehydrated. She was not toxic or febrile. The patient received IV saline, 1 L. She was given IV Zofran, oral Tylenol, IV ceftriaxone. I did speak with the patient about her findings, I do think she deserves a hospital stay. She is weak, dehydrated, she has UTI. She also has a troponin elevation which requires further workup. The patient did consent to a hospital stay. I did speak with case management, the on-call hospitalist was consulted. Prior/Outside records/notes reviewed: Today's EMS notes describing her presentation and transport to this hospital. ECG per my interpretation: Indication was weakness. The ECG shows what appears to be a normal sinus rhythm. There is a poor baseline from artifact. The rate was 80. There was no acute ST elevation, no PVCs. The QTc was 459. Continuous Cardiac Monitoring per my interpretation: An order was placed for continuous cardiac monitoring. The monitor shows a rate of 82 with normal sinus rhythm. Imaging/x-ray results per my interpretation: Chest x-ray shows findings of COPD, no CHF or pneumonia. Chronic Medical/Social conditions affecting care: Advanced age. Care/Management discussed with: Case management, the on-call hospitalist. Level of care consideration(s): After review of the information above and other included data: --I believe the patient requires escalation of care to admission DISPOSITION: Admission Past Med/Surg History Problem List (Updated 04/23/24 @ 22:18 by Jeffrey Garcia MD) Acute UTI (Acute) Dehydration (Acute) Elevated troponin (Acute) Weakness (Acute) Insomnia Thiamine deficiency GAVIN (acute kidney injury) (Acute) Peptic ulcer disease Gastritis Epigastric pain Essential hypertension Adnexal mass Elevated troponin (Acute) Chest pain (Acute) Severe protein-calorie malnutrition Acute metabolic encephalopathy History of migraine headaches Substernal chest pain Elevated troponin Acute kidney injury ANJEL positive Abnormal chest CT Multiple pulmonary nodules Bronchiectasis Pulmonary nodule Abnormal chest x-ray Asthma-COPD overlap syndrome COPD (chronic obstructive pulmonary disease) Pulmonary hypertension COPD with emphysema Exertional shortness of breath Dysphagia Food impaction of esophagus (Acute) Medical History GERD (gastroesophageal reflux disease) Social History Smoking Status: Unknown if ever smoked Tobacco Type: Cigarettes Hx Alcohol Use: Yes Alcohol type: wine Hx Substance Use: No Preferred Language: Latvian Communication Ability: Effective 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 Beliefs That Will Affect Care: None Current Living Situation: Alone Current Living Situation Comment: Patient stated that passed 3 years ago and she has lived alone Feels Safe at Home: Yes Assistive Devices: None Allergies Allergies Allergy/AdvReac Type Severity Reaction Status Date / Time ciprofloxacin [From Cipro] Allergy Rash Verified 11/10/23 13:52 Penicillins Allergy Rash Verified 11/10/23 13:52 Sulfa (Sulfonamide Allergy Rash Verified 11/10/23 13:52 Antibiotics) Home Meds Home Medications Medication Instructions Recorded Confirmed sumatriptan succinate 100 mg tablet 100 mg PO UD PRN Migraine Headache 03/16/21 04/23/24 fluticasone furoate 100 1 inh inhalation DAILY 04/23/24 04/23/24 mcg-vilanterol 25 mcg/dose inhalation powder (Breo Ellipta) Previous Rx's Medication Instructions Recorded Flutter Valve #1 ea 11/15/23 guaifenesin 600 mg tablet, 600 mg PO BID PRN congestion #60 11/15/23 extended release 12 hr (Mucinex) tabs metoprolol succinate 100 mg 50 mg (1/2 x 100 mg) PO DAILY #0 02/11/24 tablet,extended release 24 hr tabs pantoprazole 40 mg tablet,delayed 40 mg PO BID #60 tabs 03/02/24 release Results & Data (ED) Vital Signs Vital Signs - 24 hr 04/23/24 17:11 04/23/24 17:25 04/23/24 17:25 Temperature 36.7 C Temperature Source Oral Pulse Rate 84 80 Pulse Rate [Right Finger] 82 Pulse Rhythm Regular Pulse Rhythm [Right Finger] Regular Pulse Strength Normal Pulse Strength [Right Finger] Normal Respiratory Rate 15 15 Respiratory Effort / Characteristics Non-Labored Non-Labored Respiratory Depth Normal Normal Respiratory Pattern Regular Blood Pressure 161/99 H Blood Pressure [Right Arm] 161/99 H Blood Pressure Mean 119 Blood Pressure Mean [Right Arm] 119 Blood Pressure Position Lying Blood Pressure Position [Right Arm] Lying Pulse Oximetry 99 97 Oxygen Delivery Method Room Air Room Air Sepsis Recent Fever Within 48 Hours No Sepsis New/Unexplained Change in Mental Status N/A Sepsis Action Taken by Nursing No Action Required 04/23/24 17:25 04/23/24 19:00 04/23/24 21:07 Temperature Temperature Source Pulse Rate 82 Pulse Rate [Right Finger] 83 80 Pulse Rhythm Regular Pulse Rhythm [Right Finger] Regular Regular Pulse Strength Pulse Strength [Right Finger] Normal Normal Respiratory Rate 15 18 20 Respiratory Effort / Characteristics Non-Labored Spontaneous Non-Labored Respiratory Depth Normal Normal Respiratory Pattern Regular Regular Blood Pressure Blood Pressure [Right Arm] 153/97 H 150/83 H Blood Pressure Mean Blood Pressure Mean [Right Arm] 115 105 Blood Pressure Position Blood Pressure Position [Right Arm] Semi-fowlers Lying Pulse Oximetry 97 99 100 Oxygen Delivery Method Room Air Room Air Room Air Sepsis Recent Fever Within 48 Hours Sepsis New/Unexplained Change in Mental Status Sepsis Action Taken by Nursing 04/23/24 21:10 Temperature Temperature Source Pulse Rate 79 Pulse Rate [Right Finger] Pulse Rhythm Pulse Rhythm [Right Finger] Pulse Strength Pulse Strength [Right Finger] Respiratory Rate Respiratory Effort / Characteristics Respiratory Depth Respiratory Pattern Blood Pressure Blood Pressure [Right Arm] Blood Pressure Mean Blood Pressure Mean [Right Arm] Blood Pressure Position Blood Pressure Position [Right Arm] Pulse Oximetry Oxygen Delivery Method Sepsis Recent Fever Within 48 Hours Sepsis New/Unexplained Change in Mental Status Sepsis Action Taken by Care Home Medications Current Medication List: was personally reviewed by me Laboratory Data Attestation: I reviewed the patient's lab results. 04/23/24 17:20 04/23/24 17:20 Lab Results 04/23/24 04/23/24 04/23/24 Range/Units 17:20 17:40 20:15 WBC 9.78 (4.8-10.8) K/ul RBC 4.26 (4.20-5.40) M/uL Hgb 13.7 (12.0-16.0) g/dl Hct 42.1 (37.0-47.0) % MCV 98.8 (80.0-100.0) fL MCH 32.2 (25.0-34.0) pg MCHC 32.5 (32.0-36.0) g/dL RDW Std Deviation 49.5 H (36.4-46.3) fL RDW Coeff of Michael 13.6 (11.5-14.5) % Plt Count 371 (130-400) K/uL MPV 9.7 (9.4-12.4) fL Immature Gran % (Auto) 0.3 % Neut % (Auto) 84.3 % Lymph % (Auto) 8.7 % [place] % (Auto) 6.6 % Eos % (Auto) 0.0 % Baso % (Auto) 0.1 % Neut # (Auto) 8.24 H (1.40-6.50) K/uL Lymph # (Auto) 0.85 L (1.20-3.40) K/uL [place] # (Auto) 0.65 H (0.11-0.59) K/uL Eos # (Auto) 0.00 (0.00-0.50) K/uL Baso # (Auto) 0.01 (0.00-0.20) K/uL Immature Gran # (Auto) 0.03 (0.01-0.20) K/uL Sodium 141 (136-145) mmol/L Potassium 4.5 (3.5-5.1) mmol/L Chloride 98 (98-107) mmol/L Carbon Dioxide 34 H (21-32) mmol/L Anion Gap 9 (3-11) BUN 17 (6-23) mg/dl Creatinine 1.18 (0.6-1.2) mg/dl Est Cr Clr Drug Dosing 20.6 ml/min eGFR 48.17 BUN/Creatinine Ratio 14.4 (10-20) Glucose 131 H (70-99(Fasting)) mg/dl Calcium 11.0 H (8.6-10.3) mg/dl Magnesium 2.1 (1.7-2.4) mg/dl Total Bilirubin 0.5 (0.2-1.0) mg/dl AST 20 (13-39) U/L ALT 8 (7-52) U/L Alkaline Phosphatase 98 (34-104) U/L Troponin I High Sens 92.5 H* 99.2 H* (0-14) pg/ml Total Protein 7.3 (6.0-8.3) gm/dl Albumin 4.1 (3.4-5.0) gm/dl Globulin 3.2 (2.5-4.0) gm/dl Albumin/Globulin Ratio 1.3 (0.9-2) TSH 1.604 (0.300-4.500) uIu/ml Urine Color Yellow Urine Appearance Turbid A (Clear) Urine pH >= 9.0 H (4.5-7.5) Ur Specific [place] 1.009 (1.000-1.030) Urine Protein Negative (Negative) Urine Glucose (UA) Negative (Negative) Urine Ketones Negative (Negative) Urine Blood Negative (Negative) Urine Nitrite Negative (Negative) Urine Bilirubin Negative (Negative) Urine Urobilinogen Negative (Negative) Ur Leukocyte Esterase 2+ H (Negative) Urine WBC (Auto) 6-10 H (0-5) /hpf Urine RBC (Auto) 0-2 (0-2) /hpf U Hyaline Cast (Auto) 0-2 (0-2) /lpf U Epithel Cells (Auto) 0-2 (0-2) /hpf Urine Bacteria (Auto) 2+ H (None Seen) Adenovirus (PCR) Not Detected (NotDetected) B. pertussis DNA (PCR) Not Detected (NotDetected) B.parapertussis DNA PCR Not Detected (NotDetected) C. pneumoniae DNA (PCR) Not Detected (NotDetected) Coronavirus OC43 (PCR) Not Detected (NotDetected) Coronavirus HKU1 (PCR) Not Detected (NotDetected) Coronavirus 229E (PCR) Not Detected (NotDetected) SARS-CoV-2 (PCR) Not Detected (NotDetected) Coronavirus NL63 (PCR) Not Detected (NotDetected) Human Metapneumovir PCR Not Detected (NotDetected) Influenza Type A (PCR) Not Detected (NotDetected) Influenza Type B (PCR) Not Detected (NotDetected) M. pneumoniae (PCR) Not Detected (NotDetected) Parainfluenza 1 (PCR) Not Detected (NotDetected) Parainfluenza 2 (PCR) Not Detected (NotDetected) Parainfluenza 3 (PCR) Not Detected (NotDetected) Parainfluenza 4 (PCR) Not Detected (NotDetected) RSV (PCR) Not Detected (NotDetected) Entero/Rhino (PCR) Not Detected (NotDetected) Administered Medications Discontinued Medications Sodium Chloride (Nss) 500 mls @ 999 mls/hr IV .Q31M ONE Stop: 04/23/24 18:12 Last Infusion: 04/23/24 18:30 Dose: Infused Documented By: Admin: 04/23/24 17:52 Dose: 999 mls/hr Documented By: AXEL Ceftriaxone Sodium (Rocephin) 2,000 mg in 50 mls @ 100 mls/hr IV NOW STA Stop: 04/23/24 19:12 Last Infusion: 04/23/24 19:41 Dose: Infused Documented By: Admin: 04/23/24 18:55 Dose: 100 mls/hr Documented By: AXEL Sodium Chloride (Nss) 500 mls @ 999 mls/hr IV .Q31M ONE Stop: 04/23/24 19:13 Last Infusion: 04/23/24 20:42 Dose: Infused Documented By: Admin: 04/23/24 18:55 Dose: 999 mls/hr Documented By: AXEL Ondansetron HCl (Ondansetron Inj 2 Mg/Ml 2 Ml Vial) Confirm Administered Dose 4 mg .ROUTE .STK-MED ONE Stop: 04/23/24 22:04 Last Admin: 04/23/24 22:06 Dose: Not Given Documented By: AXEL Ondansetron HCl (Ondansetron Inj 2 Mg/Ml 2 Ml Vial) 4 mg IV NOW STA Stop: 04/23/24 22:05 Last Admin: 04/23/24 22:06 Dose: 4 mg Documented By: AXEL Imaging Data Radiologist's Impression: Chest X-Ray 04/23/24 17:42 INDICATION: Weakness. TECHNIQUE: Frontal radiograph of the chest. COMPARISON: Radiograph from 02/22/2024. FINDINGS: The cardiomediastinal silhouette and pulmonary vasculature appear within normal limits. The lungs appear hyperinflated. Bilateral apical pleural scarring. No infiltrate, pleural effusion or pneumothorax. No acute osseous abnormality evident. IMPRESSION: No acute cardiopulmonary process. Findings likely related to COPD. Electronically signed by Phani Yi 04-23-2024 6:19 PM Discharge Plan Visit Data Chief Complaint: Illness Stated Complaint: ILLNESS ED Provider: Jeffrey Garcia Discharge Problem: Weakness, Elevated troponin, Dehydration, Acute UTI Patient Disposition: Admitted As Inpatient Condition: Fair Forms Stand Alone Forms: [facility] Prescriptions Prescriptions: No Action guaifenesin [Mucinex] 600 mg tablet extended release 12hr 600 mg PO BID PRN (Reason: congestion) Qty: 60 1RF Rx Instructions: Take 1 tab p.o. twice a day for 7 days and then as needed (DME) Flutter Valve Device See Rx Instructions .MEDSUPPLY Qty: 1 0RF Rx Instructions: Use it every 6 hours when awake. sumatriptan succinate 100 mg Tablet 100 mg PO UD PRN (Reason: Migraine Headache) Rx Instructions: Take for severe migraine, no more than 2 in 24 hours fluticasone furoate-vilanterol [Breo Ellipta] 100-25 mcg/dose blister with device 1 inh INHALATION DAILY metoprolol succinate 100 mg Tablet Extended Release 24 Hr 50 mg PO DAILY Qty: 0 0RF pantoprazole 40 mg Tablet,Delayed Release (Dr/Ec) 40 mg PO BID Qty: 60 0RF Referrals Referrals: Kelly Zelaya DO [Primary Care Provider] -
[2024-04-23 18:02] LABS: Basophils # (auto) 0.01 K/uL (0.00-0.20); Basophils % (auto) 0.1 %; Hematocrit (blood only) 42.1 % (37.0-47.0); Hemoglobin 13.7 g/dl (12.0-16.0); Immature Granulocytes # (auto) 0.03 K/uL (0.01-0.20); Immature Granulocytes % (auto) 0.3 %; Lymphocytes # (auto) 0.85 K/uL (1.20-3.40); Lymphocytes % (auto) 8.7 %; Mean Corpuscular Hemoglobin 32.2 pg (25.0-34.0); Mean Corpuscular Hgb Conc 32.5 g/dL (32.0-36.0); Mean Corpuscular Volume 98.8 fL (80.0-100.0); Mean Platelet Volume 9.7 fL (9.4-12.4); Monocytes # (auto) 0.65 K/uL (0.11-0.59); Monocytes % (auto) 6.6 %; Neutrophils # (auto) 8.24 K/uL (1.40-6.50); Neutrophils % (auto) 84.3 %; Platelet Count 371 K/uL (130-400); RDW Coefficient of Variation 13.6 % (11.5-14.5); RDW Standard Deviation 49.5 fL (36.4-46.3); Red Blood Count 4.26 M/uL (4.20-5.40); White Blood Count 9.78 K/ul (4.8-10.8)
[2024-04-23 18:04] LABS: Appearance Urine Turbid (Clear); Bacteria Urine Automated 2+ (None Seen); Bilirubin Urine Negative (Negative); Blood Urine Negative (Negative); Cast Urine Automated 0-2 /lpf (0-2); Color Urine Yellow; Epithelial Cell Urine Auto 0-2 /hpf (0-2); Glucose Urine UA Negative (Negative); Ketones Urine Negative (Negative); Leukocyte Esterase Urine 2+ (Negative); Nitrite Urine Negative (Negative); Protein Urine Negative (Negative); RBC Urine Automated 0-2 /hpf (0-2); Specific Gravity Urine 1.009 (1.000-1.030); Urobilinogen Urine Negative (Negative); pH Urine >= 9.0 (4.5-7.5)
[2024-04-23 18:12] LABS: Albumin Globulin Ratio 1.3 (0.9-2); Albumin Level 4.1 gm/dl (3.4-5.0); BUN Creatinine Ratio 14.4 (10-20); Bilirubin,Total 0.5 mg/dl (0.2-1.0); Creatinine Clr Calc Pharmacy 20.6 ml/min; Globulin 3.2 gm/dl (2.5-4.0); Magnesium 2.1 mg/dl (1.7-2.4); Potassium 4.5 mmol/L (3.5-5.1); Total Protein 7.3 gm/dl (6.0-8.3)
--- NOTE | 2024-04-23 18:19 | XRay Report ---
INDICATION: Weakness. TECHNIQUE: Frontal radiograph of the chest. COMPARISON: Radiograph from 02/22/2024. FINDINGS: The cardiomediastinal silhouette and pulmonary vasculature appear within normal limits. The lungs appear hyperinflated. Bilateral apical pleural scarring. No infiltrate, pleural effusion or pneumothorax. No acute osseous abnormality evident. IMPRESSION: No acute cardiopulmonary process. Findings likely related to COPD. Electronically signed by Phani Yi 04-23-2024 6:19 PM
[2024-04-23 18:24] LABS: Troponin I High Sensitivity 92.5 pg/ml (0-14)
[2024-04-23 18:27] LABS: Thyroid Stimulating Hormone 1.604 uIu/ml (0.300-4.500)
[2024-04-23 18:39] LABS: Adenovirus PCR Not Detected (NotDetected); Bordetella parapertussis PCR Not Detected (NotDetected); Bordetella pertussis PCR Not Detected (NotDetected); Chlamydia pneumoniae PCR Not Detected (NotDetected); Coronavirus 229E PCR Not Detected (NotDetected); Coronavirus CoV-2 (COVID19)PCR Not Detected (NotDetected); Coronavirus HKU1 PCR Not Detected (NotDetected); Coronavirus NL63 PCR Not Detected (NotDetected); Coronavirus OC43PCR Not Detected (NotDetected); Human Metapneumovirus PCR Not Detected (NotDetected); Influenza A PCR Not Detected (NotDetected); Influenza B PCR Not Detected (NotDetected); Mycoplasma pneumoniae PCR Not Detected (NotDetected); Parainfluenza Virus 1 PCR Not Detected (NotDetected); Parainfluenza Virus 2 PCR Not Detected (NotDetected); Parainfluenza Virus 3 PCR Not Detected (NotDetected); Parainfluenza Virus 4 PCR Not Detected (NotDetected); Respiratory Syncytial VirusPCR Not Detected (NotDetected); Rhinovirus/Enterovirus PCR Not Detected (NotDetected)
[2024-04-23] MEDS: cefTRIAXone SODIUM 2,000 MG/50 ML BAG IV STA (18:55)
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
--- OUTSIDE RECORDS SUMMARY | 2024-04-23 21:24 | External Medical Summary | Continuity of Care Document ---
Author Name Unknown Organization [facility] [address] Address [address] [place], [place] [id number] Care Team Providers Care Deputy Fire Chief Name Role Phone Kelly Zelaya Primary Care khadra [phone] [id number] Date[facility]s): 04/05/24 - 04/05/24 [facility] [address] [facility] [address] [facility] [address] [place], [place] [phone] Encounter Diagnosis Unspecified severe protein-calorie malnutrition(Final) - Discharge Disposition: Home or Self Care Attending Physician: Del Mcfadden DO, Mariana Annette Referring Physician: Del Mcfadden DO, Mariana Annette Allergies, Adverse Reactions, Alerts Substance Criticality Severity Reaction Reaction Severity Status penicillins rash Active sulfa drugs rash Active Immunizations Given and Recorded Vaccine Date Status [...] Daily, Disp# 1 each, Refills: 6, Pharmacy: [id number] Start Date: 03/26/24 Stop Date: 10/22/24 Status: Ordered Metoprolol Succinate ER 50 mg oral tablet, extended release Start: 03/26/24 3:47:00 PM EST, 1 tab, PO, Daily, Disp# 90 tab, Refills: 3, Note to Pharmacy: to replace metoprolol 100mg, Pharmacy: [facility] Start Date: 03/26/24 Status: Ordered multivitamin Start: 09/13/22 9:39:00 AM EDT, 1 tab, PO, Daily Start Date: 09/13/22 Status: Ordered pantoprazole 40 mg oral delayed release tablet Start: 03/26/24 1:34:00 PM EST, 1 tab, PO, Daily, Disp# 90 tab, Refills: 3, Pharmacy: [facility] 16[facility] Start Date: 03/26/24 Status: Ordered potassium chloride 20 mEq oral tablet, extended release Start: 04/06/24 12:56:00 PM EST, 1 tab, PO, ONCE, Disp# 1 tab, Pharmacy: [facility] 16[facility] Start Date: 04/06/24 Status: Ordered SUMAtriptan 100 mg oral tablet Start: 10/01/22 11:19:00 AM EDT, See Instructions, Disp# 12 tab, Refills: 5, 1 tab PO PRN for migraine headaches. may repeat dose once in 2 hours. Do not take more than 2 doses/24 hours. Maximum 12 tablets per 30 days., Pharmacy: [place] [id number] Start Date: 10/01/22 Status: Ordered Tums Start: 03/26/24 1:13:00 PM EST Start Date: 03/26/24 Status: Ordered Tylenol Start: 09/13/22 9:38:00 AM EDT, as needed Start Date: 09/13/22 Status: Ordered Xyzal Start: 09/13/22 9:38:00 AM EDT, bid, as needed Start Date: 09/13/22 Status: Ordered ZyrTEC Start: 09/13/22 9:37:00 AM EDT, bid, as needed Start Date: 09/13/22 Status: Ordered Problem List Condition Confirmation Course Effective Dates [...] leg Confirmed Active Weight loss Confirmed Active Results Laboratory List Name Date Complete Blood Count (CBC) 04/05/24 Comprehensive Metabolic Panel (COMP META B PANEL) 04/05/24 Ferritin (FERRITIN) 04/05/24 Folic Acid Level (FOLIC ACID) 04/05/24 Iron Profile (IRON PROFILE) 04/05/24 Magnesium Level (MAGNESIUM) 04/05/24 Vitamin B12 Level (VITAMIN B12) 04/05/24 Vitamin D, 25-Hydroxy Level, Total (25-H YDROXY VITAMIN D) 04/05/24 Most recent to oldest [Reference Range]: 1 eGFR CKD-EPI [>60 mL/min/1.73 m2] 42 mL/ min/1.73 m2 *LOW* (04/05/24 3:44 PM) Vitamin D, 25-Hydroxy [30-100 ng/mL] 43 ng/mL 1 (04/05/24 3:44 PM) Estimated CrCl 20.21 mL/min (04/05/24 8:48 PM) MPV [9.0-12.2 fL] 10.2 fL (04/05/24 3:44 PM) RDW [11.5-14.2 %] 14.1 % (04/05/24 3:44 PM) Anion Gap [5-14 mmol/L] 17 mmol/L *HI* (04/05/24 3:44 PM) Alb [3.5-5.2 g/dL] 3.9 g/dL (04/05/24 3:44 PM) Alk Phos [35-115 unit/L] 93 unit/L 2 (04/05/24 3:44 PM) ALT [0-33 unit/L] 11 unit/L (04/05/24 3:44 PM) AST [0-32 unit/L] 24 unit/L (04/05/24 3:44 PM) B12 [211-946 pg/mL] 1458 pg/mL *HI* (04/05/24 3:44 PM) BUN [6-23 mg/dL] 30 mg/dL *HI* (04/05/24 3:44 PM) Ca [8.4-10.2 mg/dL] 9.7 mg/dL (04/05/24 3:44 PM) Cl- [98-107 mmol/L] 101 mmol/L (04/05/24 3:44 PM) HCO3 [22-29 mmol/L] 22 mmol/L (04/05/24 3:44 PM) Cret [0.60-1.00 mg/dL] 1.31 mg/dL *HI* (04/05/24 3:44 PM) Iron [37-145 ug/dL] 43 ug/dL (04/05/24 3:44 PM) Ferritin [11.1-264.0 ng/mL] 163.6 ng/mL 3 (04/05/24 3:44 PM) Folate [>7.2 ng/mL] >20.0 ng/mL 4 (04/05/24 3:44 PM) Glu [74-109 mg/dL] 79 mg/dL 5 (04/05/24 3:44 PM) Hct [35-44 %] 37.0 % (04/05/24 3:44 PM) Hgb [11.7-15.0 g/dL] 11.9 g/dL (04/05/24 3:44 PM) K [3.5-5.1 mmol/L] 3.3 mmol/L *LOW* (04/05/24 3:44 PM) MCH [28-33 pg] 32.5 pg (04/05/24 3:44 PM) MCHC [32-36 g/dL] 32.2 g/dL (04/05/24 3:44 PM) MCV [81-96 fL] 101.1 fL *HI* (04/05/24 3:44 PM) Mg [1.6-2.6 mg/dL] 2.2 mg/dL (04/05/24 3:44 PM) Na [136-145 mmol/L] 140 mmol/L (04/05/24 3:44 PM) Plts [150-350 K/uL] 303 K/uL (04/05/24 3:44 PM) RBC [3.90-5.00 M/uL] 3.66 M/uL *LOW* (04/05/24 3:44 PM) Fe Sat [14-50 %] 18 % (04/05/24 3:44 PM) T Bili [0.0-1.2 mg/dL] 0.2 mg/dL (04/05/24 3:44 PM) Total IBC [250-400 ug/dL] 244 ug/dL *LOW* (04/05/24 3:44 PM) Prot [6.4-8.3 g/dL] 7.0 g/dL (04/05/24 3:44 PM) Transferrin [200-360 mg/dL] 207 mg/dL (04/05/24 3:44 PM) WBC [4.0-10.4 K/uL] 5.02 K/uL (04/05/24 3:44 PM) 1Result Comment: Deficiency: <20 ng/mL Insufficiency: 21-29 ng/mL Sufficiency: 30-100 ng/mL Potenial Toxicity: >150 ng/mL 2Result Comment: Low levels of ALKP may indicate a deficiency in zinc, magnesium, or malnutritionbutcan also be an indicator of a rare genetic disease hypophosphatasia (HPP). 3Result Comment: Testing Performed By: Dept of Pathology [facility] [address], [address], [place] [address] 4Result Comment: HEMOLYZED SPECIMEN 5Result Comment: ADA recommendation for FASTING Serum/Plasma Glucose: Normal: 70-100 mg/dL Prediabetes: 100-125 mg/dL Diabetes: 126 mg/dL or higher Social History Social History Type Response Smoking Status Never smoked cigaret la Sex Female Sex Representation Female (finding) Patient Care team information Care Team Personnel Name: Del Mcfadden DO, Mariana Annette Position: Physician - Family Med Member Role: Primary Care Provider Address: [address] [place] [id number] [place] Care Team Related Persons Name: SHABNAM FLOOD Name: MEÑO FLOOD
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
--- NOTE | 2024-04-23 21:55 | History & Physical Report ---
Date of Service April 23, 2024 Assessment & Plan (1) Severe protein-calorie malnutrition: (2) Peptic ulcer disease: (3) Gastritis: (4) Acute UTI: (5) Elevated troponin: Plan The patient is a 73-year-old female with a past medical history including thiamine deficiency, peptic ulcer disease, gastritis, adnexal mass, history of metabolic encephalopathy, migraines, asthma-COPD overlap syndrome, pulm hypertension, dysphagia, and food impaction of esophagus. Family concerns regar ding decreased oral intake, and inability to gain weight. She does note significantly worsening issues with swallowing, other has noted in the food being stuck recently. Her primary concern this evening is related to concerns regarding her tract infection, and symptoms of intermittent abdominal and pelvic discomfort. #Severe protein calorie malnutrition- Her son reports that he has been having her take nutritional supplements on a regular basis She has a history of severe peptic ulcer disease/ gastritis, food impaction. CT scan abdomen pelvis from 02/24/2024 with significant peptic ulcer disease and gastritis She continues on pantoprazole 40 mg p.o. twice daily Her BMI is 13.6 Will consult speech Consult nutrition Consult gastroenterology Continue pantoprazole 40 mg p.o. twice daily, could consider coating agent such as Carafate as well Unclear if EPI and pancreatic enzymes might be of value #Severe peptic ulcer disease/gastritis- Undoubtedly affecting her ability to maintain weight and general health Pantoprazole as above, asked GI opinion #Urinary tract infection- Follow urine culture sensitivity Most recent UTI on 02/07/2024 was E. coli that is pansensitive Continue ceftriaxone IV daily #Elevated troponin/history of Lowjeancarlos Ganniecy Chris- Troponin initially 92.5, follow-up 99.2 Most recent echocardiogram on 06/08/2023 with ejection fraction 60%, MR and TR Consult cardiology #Generalized weakness/deconditioning-PT/OT consult Asthma-COPD overlap syndrome- continue inhalers History of Present Illness Chief Complaint: The patient presents to the emergency department with complaint of generalized weakness, decreased oral intake over the past weeks, concern regarding urinary tract infection, and notes intermittent issues with difficulty swallowing. Primary Care Provider: Kelly Mcfadden DO The patient is a 73-year-old female with a past medical history including thiamine deficiency, peptic ulcer disease, gastritis, adnexal mass, history of metabolic encephalopathy, migraines, asthma-COPD overlap syndrome, pulm hypertension, dysphagia, and food impaction of esophagus. Family concerns regarding decreased oral intake, and inability to gain weight. She does note significantly worsening issues with swallowing, other has noted in the food being stuck recently. Her primary concern this evening is related to concerns regarding her tract infection, and symptoms of intermittent abdominal and pelvic discomfort. Allergies Allergy/AdvReac Type Severity Reaction Status Date / Time ciprofloxacin [From Cipro] Allergy Rash Verified 11/10/23 13:52 Penicillins Allergy Rash Verified 11/10/23 13:52 Sulfa (Sulfonamide Allergy Rash Verified 11/10/23 13:52 Antibiotics) Home Medications Medication Instructions Recorded Confirmed Type sumatriptan succinate 100 mg tablet 100 mg PO UD PRN Migraine Headache 03/16/21 04/23/24 History Flutter Valve #1 ea 11/15/23 11/15/23 Rx guaifenesin 600 mg tablet, 600 mg PO BID PRN congestion #60 11/15/23 04/23/24 Rx extended release 12 hr (Mucinex) tabs metoprolol succinate 100 mg 50 mg (1/2 x 100 mg) PO DAILY #0 02/11/24 04/23/24 Rx tablet,extended release 24 hr tabs pantoprazole 40 mg tablet,delayed 40 mg PO BID #60 tabs 03/02/24 04/23/24 Rx release fluticasone furoate 100 1 inh inhalation DAILY 04/23/24 04/23/24 History mcg-vilanterol 25 mcg/dose inhalation powder (Breo Ellipta) Past Med/Surg History Problem List (Updated 04/23/24 @ 22:18 by Jeffrey Garcia MD) Acute UTI (Acute) Dehydration (Acute) Elevated troponin (Acute) Weakness (Acute) Insomnia Thiamine deficiency GAVIN (acute kidney injury) (Acute) Peptic ulcer disease Gastritis Epigastric pain Essential hypertension Adnexal mass Elevated troponin (Acute) Chest pain (Acute) Severe protein-calorie malnutrition Acute metabolic encephalopathy History of migraine headaches Substernal chest pain Elevated troponin Acute kidney injury ANJEL positive Abnormal chest CT Multiple pulmonary nodules Bronchiectasis Pulmonary nodule Abnormal chest x-ray Asthma-COPD overlap syndrome COPD (chronic obstructive pulmonary disease) Pulmonary hypertension COPD with emphysema Exertional shortness of breath Dysphagia Food impaction of esophagus (Acute) Medical History GERD (gastroesophageal reflux disease) Social History Smoking Status: Unknown if ever smoked Tobacco Type: Cigarettes Hx Alcohol Use: Yes Alcohol type: wine Hx Substance Use: No Preferred Language: Danish Communication Ability: Effective Communications Assistant Required: No Beliefs That Will Affect Care: None Current Living Situation: Alone Current Living Situation Comment: Patient stated that passed 3 years ago and she has lived alone Feels Safe at Home: Yes Assistive Devices: None Review of Systems Review of Systems: The patient denies chest pain, palpitations, lower extremity swelling, sore throat, fevers, chills, sweats, blood in urine or stool, dizziness, headache, memory loss, loss of consciousness, rash, abnormal bruising or bleeding, focal or generalized weakness, numbness or tingling in arms or legs, generalized arthralgias or myalgias, back or neck pain, or night sweats. The review of systems is otherwise negative other than for that already noted above, and at least 10 systems have been reviewed. Physical Exam Physical Exam: The patient is awake, alert and oriented 3, well developed and well nourished, normocephalic and atraumatic, lying in bed and in no acute distress. HEENT--PERRL, EOMI, mucous membranes and oropharynx dry. Neck--supple. No JVD. No bruits. Thyroid normal, trachea midline, no adenopathy. Heart--normal S1 and S2. No murmurs, rubs or gallops. Lungs--clear bilaterally, no respiratory distress, no accessory muscle use. Abdomen--normal bowel sounds and soft. Nontender. Nondistended, no hernias or masses, no organomegaly. Extremities--no cyanosis or clubbing. No edema. Dermatologic--normal skin turgor, normal color, no abnormal lymph nodes, no rash. Neurologic--cranial nerves II through XII grossly intact. Rheumatologic--normal range of motion. Psychiatric--normal affect. Results & Data Results & Data Vital Signs (Past 12 Hours) Vital Signs Temp Pulse Pulse Resp BP BP Pulse Ox 04/23/24 21:10 79 04/23/24 21:07 80 20 150/83 H 100 04/23/24 19:00 83 18 153/97 H 99 04/23/24 17:25 82 15 97 04/23/24 17:25 82 15 161/99 H 97 04/23/24 17:25 36.7 C 80 15 161/99 H 99 04/23/24 17:11 84 O2 Del Method 04/23/24 21:10 04/23/24 21:07 Room Air 04/23/24 19:00 Room Air 04/23/24 17:25 Room Air 04/23/24 17:25 Room Air 04/23/24 17:25 Room Air 04/23/24 17:11 Laboratory Results Laboratory Results WBC 9.78 K/ul (4.8-10.8) 04/23/24 17:20 RBC 4.26 M/uL (4.20-5.40) 04/23/24 17:20 Hgb 13.7 g/dl (12.0-16.0) 04/23/24 17:20 Hct 42.1 % (37.0-47.0) 04/23/24 17:20 MCV 98.8 fL (80.0-100.0) 04/23/24 17:20 MCH 32.2 pg (25.0-34.0) 04/23/24 17:20 MCHC 32.5 g/dL (32.0-36.0) 04/23/24 17:20 RDW Std Deviation 49.5 fL (36.4-46.3) H 04/23/24 17:20 RDW Coeff of Michael 13.6 % (11.5-14.5) 04/23/24 17:20 Plt Count 371 K/uL (130-400) 04/23/24 17:20 MPV 9.7 fL (9.4-12.4) 04/23/24 17:20 Immature Gran % (Auto) 0.3 % 04/23/24 17:20 Neut % (Auto) 84.3 % 04/23/24 17:20 Lymph % (Auto) 8.7 % 04/23/24 17:20 [place] % (Auto) 6.6 % 04/23/24 17:20 Eos % (Auto) 0.0 % 04/23/24 17:20 Baso % (Auto) 0.1 % 04/23/24 17:20 Neut # (Auto) 8.24 K/uL (1.40-6.50) H 04/23/24 17:20 Lymph # (Auto) 0.85 K/uL (1.20-3.40) L 04/23/24 17:20 [place] # (Auto) 0.65 K/uL (0.11-0.59) H 04/23/24 17:20 Eos # (Auto) 0.00 K/uL (0.00-0.50) 04/23/24 17:20 Baso # (Auto) 0.01 K/uL (0.00-0.20) 04/23/24 17:20 Immature Gran # (Auto) 0.03 K/uL (0.01-0.20) 04/23/24 17:20 Sodium 141 mmol/L (136-145) 04/23/24 17:20 Potassium 4.5 mmol/L (3.5-5.1) 04/23/24 17:20 Chloride 98 mmol/L (98-107) 04/23/24 17:20 Carbon Dioxide 34 mmol/L (21-32) H 04/23/24 17:20 Anion Gap 9 (3-11) 04/23/24 17:20 BUN 17 mg/dl (6-23) 04/23/24 17:20 Creatinine 1.18 mg/dl (0.6-1.2) 04/23/24 17:20 Est Cr Clr Drug Dosing 20.6 ml/min 04/23/24 17:20 eGFR 48.17 04/23/24 17:20 BUN/Creatinine Ratio 14.4 (10-20) 04/23/24 17:20 Glucose 131 mg/dl (70-99(Fasting)) H 04/23/24 17:20 Calcium 11.0 mg/dl (8.6-10.3) H 04/23/24 17:20 Magnesium 2.1 mg/dl (1.7-2.4) 04/23/24 17:20 Total Bilirubin 0.5 mg/dl (0.2-1.0) 04/23/24 17:20 AST 20 U/L (13-39) 04/23/24 17:20 ALT 8 U/L (7-52) 04/23/24 17:20 Alkaline Phosphatase 98 U/L (34-104) 04/23/24 17:20 Troponin I High Sens 99.2 pg/ml (0-14) H* 04/23/24 20:15 Total Protein 7.3 gm/dl (6.0-8.3) 04/23/24 17:20 Albumin 4.1 gm/dl (3.4-5.0) 04/23/24 17:20 Globulin 3.2 gm/dl (2.5-4.0) 04/23/24 17:20 Albumin/Globulin Ratio 1.3 (0.9-2) 04/23/24 17:20 TSH 1.604 uIu/ml (0.300-4.500) 04/23/24 17:20 Urine Color Yellow 04/23/24 17:20 Urine Appearance Turbid (Clear) A 04/23/24 17:20 Urine pH >= 9.0 (4.5-7.5) H 04/23/24 17:20 Ur Specific [place] 1.009 (1.000-1.030) 04/23/24 17:20 Urine Protein Negative (Negative) 04/23/24 17:20 Urine Glucose (UA) Negative (Negative) 04/23/24 17:20 Urine Ketones Negative (Negative) 04/23/24 17:20 Urine Blood Negative (Negative) 04/23/24 17:20 Urine Nitrite Negative (Negative) 04/23/24 17:20 Urine Bilirubin Negative (Negative) 04/23/24 17:20 Urine Urobilinogen Negative (Negative) 04/23/24 17:20 Ur Leukocyte Esterase 2+ (Negative) H 04/23/24 17:20 Urine WBC (Auto) 6-10 /hpf (0-5) H 04/23/24 17:20 Urine RBC (Auto) 0-2 /hpf (0-2) 04/23/24 17:20 U Hyaline Cast (Auto) 0-2 /lpf (0-2) 04/23/24 17:20 U Epithel Cells (Auto) 0-2 /hpf (0-2) 04/23/24 17:20 Urine Bacteria (Auto) 2+ (None Seen) H 04/23/24 17:20 Adenovirus (PCR) Not Detected (NotDetected) 04/23/24 17:40 B. pertussis DNA (PCR) Not Detected (NotDetected) 04/23/24 17:40 B.parapertussis DNA PCR Not Detected (NotDetected) 04/23/24 17:40 C. pneumoniae DNA (PCR) Not Detected (NotDetected) 04/23/24 17:40 Coronavirus OC43 (PCR) Not Detected (NotDetected) 04/23/24 17:40 Coronavirus HKU1 (PCR) Not Detected (NotDetected) 04/23/24 17:40 Coronavirus 229E (PCR) Not Detected (NotDetected) 04/23/24 17:40 SARS-CoV-2 (PCR) Not Detected (NotDetected) 04/23/24 17:40 Coronavirus NL63 (PCR) Not Detected (NotDetected) 04/23/24 17:40 Human Metapneumovir PCR Not Detected (NotDetected) 04/23/24 17:40 Influenza Type A (PCR) Not Detected (NotDetected) 04/23/24 17:40 Influenza Type B (PCR) Not Detected (NotDetected) 04/23/24 17:40 M. pneumoniae (PCR) Not Detected (NotDetected) 04/23/24 17:40 Parainfluenza 1 (PCR) Not Detected (NotDetected) 04/23/24 17:40 Parainfluenza 2 (PCR) Not Detected (NotDetected) 04/23/24 17:40 Parainfluenza 3 (PCR) Not Detected (NotDetected) 04/23/24 17:40 Parainfluenza 4 (PCR) Not Detected (NotDetected) 04/23/24 17:40 RSV (PCR) Not Detected (NotDetected) 04/23/24 17:40 Entero/Rhino (PCR) Not Detected (NotDetected) 04/23/24 17:40 Impressions Chest X-Ray 04/23/24 17:42 INDICATION: Weakness. TECHNIQUE: Frontal radiograph of the chest. COMPARISON: Radiograph from 02/22/2024. FINDINGS: The cardiomediastinal silhouette and pulmonary vasculature appear within normal limits. The lungs appear hyperinflated. Bilateral apical pleural scarring. No infiltrate, pleural effusion or pneumothorax. No acute osseous abnormality evident. IMPRESSION: No acute cardiopulmonary process. Findings likely related to COPD. Electronically signed by Phani Yi 04-23-2024 6:19 PM Code Status & VTE Plan Code Status Full code VTE Prophylaxis Plan VTE Prophylaxis will be ordered: Yes PG Care Time/CCT Total # of Minutes Spent Total Time Spent with Patient: Total time spent is greater than 50% in coordination of care (as documented) at patient's floor/unit and/or counseling patient: Coding Level of Care Code 95425 INT INP/OBS CARE 3/75MIN Diagnoses Severe protein-calorie malnutrition E43 Peptic ulcer disease K27.9 Gastritis K29.70 Acute UTI N39.0 Elevated troponin R79.89
[2024-04-23] MEDS: ONDANSETRON INJ 2 MG/ML 2 ML VIAL ONE (22:05)
[2024-04-23] MEDS: ONDANSETRON INJ 2 MG/ML 2 ML VIAL IV STA (22:06)
[2024-04-23] MEDS: ACETAMINOPHEN 325 MG TAB PO STA (22:17)
[2024-04-24] MEDS ORDERED: ONDANSETRON INJ 2 MG/ML 2 ML VIAL IV PRN (01:13)
[2024-04-24] MEDS: SUMAtriptan succinate 100 MG TAB PO PRN (01:50)
[2024-04-24] MEDS: cefTRIAXone SODIUM 2,000 MG/50 ML BAG IV SCH (01:53)
[2024-04-24] MEDS: ACETAMINOPHEN 325 MG TAB PO PRN (02:02)
[2024-04-24] MEDS: PANTOprazole 40 MG TAB PO SCH (02:27)
--- NOTE | 2024-04-24 06:54 | Gastrointestinal Consultation ---
Date of Consultation April 24, 2024 Assessment & Plan (1) Peptic ulcer disease: 73 year old female w/ history of thiamine deficiency, peptic ulcer disease, gastritis, adnexal mass, metabolic encephalopathy, migraines, asthma-COPD overlap syndrome, pulm hypertension, dysphagia admitted w/ UTI - GI asked to evaluate for ongoing gastrointestinal concerns regarding food aversions, weight loss, nausea and dysphagia. Last CT in 2023 showed gastritis vs PUD 1. Repeat CTAP w/ contrast 2. Pending results consider endoscopic evaluation Tuesday 3. Continue Pantoprazole twice daily 4. Additional recommendations pending results of review of imaging 5. Agree w/ adding boost/ensure etc I spent a total of 60 minutes on the date of service in review of patient's record, and previously obtained information in person and appropriate medical visit, discussion and education of plan, with patient and/or caregiver, placing orders for tests/referral/procedures as medically necessary and documentation of pertinent clinical information in patient's medical records for their visit today.Thank you for allowing us to participate in the care of this patient. Please call with any acute changes, questions or concerns. Please see addendum below with additional recommendation from my supervising physician. We appreciate assistance in the management of any serological abnormality and corrections to include: hemoglobin >7, INR <2, platelets >50,000, potassium levels >3.5 but <5.3, and sodium levels within 5 points of the reference range prior to endoscopic evaluation. Supervising Physician Co-Signing Physician Notes Gastric outlet obstruction likely on the basis of chronic peptic ulcer disease. Neoplasia not excluded. Will have her undergo an EGD tomorrow for direct visualization of the noted changes on CT scan biopsies need I believe this obstruction is chronic as it was present on a CT back in February. Opening this with balloon dilatation would require multiple seizures with a high probability of ultimate failure. Surgery has been asked to see to consider a gastrojejunostomy. They are on board. History of Present Illness Attending Physician: Rolly Anaya MD History of Present Illness 73 year old female w/ history of thiamine deficiency, peptic ulcer disease, gastritis, adnexal mass, history of metabolic encephalopathy, migraines, asthma- COPD overlap syndrome, pulm hypertension, dysphagia w/ previous food impaction admitted w/ decreased oral intake and weight loss - GI was asked to evaluate for PUD. Pt was seen and evaluated, chart reviewed. She is currently drinking oral contrast for CT scan. Notes that she has chronic abd pain, nausea, decreased appetite and difficultly swallowing. Suggests she has had emesis, which last occurred yesterday. Denies black or bloody emesis. Stools moving okay. Denies black or bloody BMs. Typically small, soft stools. No fever, chills, CP, SOB. CTAP 2024: ordered not yet returned CTAP 2023: Wall thickening of the pylorus and proximal duodenum with adjacent stranding suggestive of peptic ulcer disease/gastritis. No pneumoperitoneum. Increase in right lower lobe alveolar opacities which favor a mild infectious process.. No bowel obstruction. Normal appendix.. Sigmoid diverticulosis. No evidence for acute diverticulitis. EGD 2020: - Food in the proximal esophagus. Removal was successful. - Benign-appearing esophageal stenoses. Dilated. - Normal stomach. - Normal examined duodenum Allergies Allergy/AdvReac Type Severity Reaction Status Date / Time ciprofloxacin [From Cipro] Allergy Rash Verified 11/10/23 13:52 Penicillins Allergy Rash Verified 11/10/23 13:52 Sulfa (Sulfonamide Allergy Rash Verified 11/10/23 13:52 Antibiotics) Home Medications Medication Instructions Recorded Confirmed Type sumatriptan succinate 100 mg tablet 100 mg PO UD PRN Migraine Headache 03/16/21 04/23/24 History Flutter Valve #1 ea 11/15/23 11/15/23 Rx guaifenesin 600 mg tablet, 600 mg PO BID PRN congestion #60 11/15/23 04/23/24 Rx extended release 12 hr (Mucinex) tabs metoprolol succinate 100 mg 50 mg (1/2 x 100 mg) PO DAILY #0 02/11/24 04/23/24 Rx tablet,extended release 24 hr tabs pantoprazole 40 mg tablet,delayed 40 mg PO BID #60 tabs 03/02/24 04/23/24 Rx release fluticasone furoate 100 1 inh inhalation DAILY 04/23/24 04/23/24 History mcg-vilanterol 25 mcg/dose inhalation powder (Breo Ellipta) Patient History Medical History GERD (gastroesophageal reflux disease) Social History Smoking Status: Never smoker Tobacco Type: Cigarettes Hx Alcohol Use: Yes Alcohol type: wine Hx Substance Use: No Preferred Language: [place] Communication Ability: Effective [employer] Required: No Beliefs That Will Affect Care: None Current Living Situation: Alone Current Living Situation Comment: Patient stated that passed 3 years ago and she has lived alone Feels Safe at Home: Yes Assistive Devices: Glasses Review of Systems Review of Systems: All other findings negative except as noted in HPI. Physical Exam Constitutional: WD/WN, vitals as above Thin, frail female in no acute distress drinking oral contrast, sitting upright in bed Respiratory: normal respiratory effort Cardiovascular: Rate/Rhythm: regular rate and regular rhythm Gastrointestinal (Abdomen): normal bowel sounds, soft, nontender, no hep atosplenomegaly Skin: no rashes, warm and dry Results & Data Vital Signs (Past 12 Hours) Vital Signs Temp Pulse Pulse Resp BP BP Pulse Ox 04/24/24 04:07 74 04/24/24 03:40 98.0 F 71 18 149/72 H 98 04/24/24 01:13 97.5 F L 75 18 168/89 H 98 04/24/24 01:12 78 18 148/78 H 98 04/24/24 01:00 97.5 F L 75 18 168/89 H 98 04/23/24 23:00 76 18 146/88 H 97 04/23/24 21:10 79 04/23/24 21:07 80 20 150/83 H 100 04/23/24 19:00 83 18 153/97 H 99 O2 Del Method 04/24/24 04:07 04/24/24 03:40 Room Air 04/24/24 01:13 Room Air 04/24/24 01:12 Room Air 04/24/24 01:00 Room Air 04/23/24 23:00 Room Air 04/23/24 21:10 04/23/24 21:07 Room Air 04/23/24 19:00 Room Air Laboratory Results 04/24/24 04/24/24 04/24/24 Range/Units 07:28 07:28 01:40 WBC 10.19 (4.8-10.8) K/ul RBC 3.80 L (4.20-5.40) M/uL Hgb 12.3 (12.0-16.0) g/dl Hct 37.6 (37.0-47.0) % MCV 98.9 (80.0-100.0) fL MCH 32.4 (25.0-34.0) pg MCHC 32.7 (32.0-36.0) g/dL RDW Std Deviation 49.6 H (36.4-46.3) fL RDW Coeff of Michael 13.5 (11.5-14.5) % Plt Count 328 (130-400) K/uL MPV 9.5 (9.4-12.4) fL Immature Gran % (Auto) 0.3 % Neut % (Auto) 83.5 % Lymph % (Auto) 7.8 % [place] % (Auto) 8.3 % Eos % (Auto) 0.0 % Baso % (Auto) 0.1 % Neut # (Auto) 8.51 H (1.40-6.50) K/uL Lymph # (Auto) 0.79 L (1.20-3.40) K/uL [place] # (Auto) 0.85 H (0.11-0.59) K/uL Eos # (Auto) 0.00 (0.00-0.50) K/uL Baso # (Auto) 0.01 (0.00-0.20) K/uL Immature Gran # (Auto) 0.03 (0.01-0.20) K/uL Sodium (136-145) mmol/L Potassium (3.5-5.1) mmol/L Chloride (98-107) mmol/L Carbon Dioxide (21-32) mmol/L Anion Gap (3-11) BUN (6-23) mg/dl Creatinine (0.6-1.2) mg/dl Est Cr Clr Drug Dosing ml/min eGFR BUN/Creatinine Ratio (10-20) Glucose (70-99(Fasting)) mg/dl Calcium (8.6-10.3) mg/dl Magnesium 1.9 (1.7-2.4) mg/dl Total Bilirubin (0.2-1.0) mg/dl AST (13-39) U/L ALT (7-52) U/L Alkaline Phosphatase (34-104) U/L Troponin I High Sens 109.9 H* 106.1 H* 88.9 H* D (0-14) pg/ml Total Protein (6.0-8.3) gm/dl Albumin (3.4-5.0) gm/dl Globulin (2.5-4.0) gm/dl Albumin/Globulin Ratio (0.9-2) TSH (0.300-4.500) uIu/ml Urine Color Urine Appearance (Clear) Urine pH (4.5-7.5) Ur Specific [place] (1.000-1.030) Urine Protein (Negative) Urine Glucose (UA) (Negative) Urine Ketones (Negative) Urine Blood (Negative) Urine Nitrite (Negative) Urine Bilirubin (Negative) Urine Urobilinogen (Negative) Ur Leukocyte Esterase (Negative) Urine WBC (Auto) (0-5) /hpf Urine RBC (Auto) (0-2) /hpf U Hyaline Cast (Auto) (0-2) /lpf U Epithel Cells (Auto) (0-2) /hpf Urine Bacteria (Auto) (None Seen) Adenovirus (PCR) (NotDetected) B. pertussis DNA (PCR) (NotDetected) B.parapertussis DNA PCR (NotDetected) C. pneumoniae DNA (PCR) (NotDetected) Coronavirus OC43 (PCR) (NotDetected) Coronavirus HKU1 (PCR) (NotDetected) Coronavirus 229E (PCR) (NotDetected) SARS-CoV-2 (PCR) (NotDetected) Coronavirus NL63 (PCR) (NotDetected) Human Metapneumovir PCR (NotDetected) Influenza Type A (PCR) (NotDetected) Influenza Type B (PCR) (NotDetected) M. pneumoniae (PCR) (NotDetected) Parainfluenza 1 (PCR) (NotDetected) Parainfluenza 2 (PCR) (NotDetected) Parainfluenza 3 (PCR) (NotDetected) Parainfluenza 4 (PCR) (NotDetected) RSV (PCR) (NotDetected) Entero/Rhino (PCR) (NotDetected) 04/23/24 04/23/24 04/23/24 Range/Units 20:15 17:40 17:20 WBC 9.78 (4.8-10.8) K/ul RBC 4.26 (4.20-5.40) M/uL Hgb 13.7 (12.0-16.0) g/dl Hct 42.1 (37.0-47.0) % MCV 98.8 (80.0-100.0) fL MCH 32.2 (25.0-34.0) pg MCHC 32.5 (32.0-36.0) g/dL RDW Std Deviation 49.5 H (36.4-46.3) fL RDW Coeff of Michael 13.6 (11.5-14.5) % Plt Count 371 (130-400) K/uL MPV 9.7 (9.4-12.4) fL Immature Gran % (Auto) 0.3 % Neut % (Auto) 84.3 % Lymph % (Auto) 8.7 % [place] % (Auto) 6.6 % Eos % (Auto) 0.0 % Baso % (Auto) 0.1 % Neut # (Auto) 8.24 H (1.40-6.50) K/uL Lymph # (Auto) 0.85 L (1.20-3.40) K/uL [place] # (Auto) 0.65 H (0.11-0.59) K/uL Eos # (Auto) 0.00 (0.00-0.50) K/uL Baso # (Auto) 0.01 (0.00-0.20) K/uL Immature Gran # (Auto) 0.03 (0.01-0.20) K/uL Sodium 141 (136-145) mmol/L Potassium 4.5 (3.5-5.1) mmol/L Chloride 98 (98-107) mmol/L Carbon Dioxide 34 H (21-32) mmol/L Anion Gap 9 (3-11) BUN 17 (6-23) mg/dl Creatinine 1.18 (0.6-1.2) mg/dl Est Cr Clr Drug Dosing 20.6 ml/min eGFR 48.17 BUN/Creatinine Ratio 14.4 (10-20) Glucose 131 H (70-99(Fasting)) mg/dl Calcium 11.0 H (8.6-10.3) mg/dl Magnesium 2.1 (1.7-2.4) mg/dl Total Bilirubin 0.5 (0.2-1.0) mg/dl AST 20 (13-39) U/L ALT 8 (7-52) U/L Alkaline Phosphatase 98 (34-104) U/L Troponin I High Sens 99.2 H* 92.5 H* (0-14) pg/ml Total Protein 7.3 (6.0-8.3) gm/dl Albumin 4.1 (3.4-5.0) gm/dl Globulin 3.2 (2.5-4.0) gm/dl Albumin/Globulin Ratio 1.3 (0.9-2) TSH 1.604 (0.300-4.500) uIu/ml Urine Color Yellow Urine Appearance Turbid A (Clear) Urine pH >= 9.0 H (4.5-7.5) Ur Specific [place] 1.009 (1.000-1.030) Urine Protein Negative (Negative) Urine Glucose (UA) Negative (Negative) Urine Ketones Negative (Negative) Urine Blood Negative (Negative) Urine Nitrite Negative (Negative) Urine Bilirubin Negative (Negative) Urine Urobilinogen Negative (Negative) Ur Leukocyte Esterase 2+ H (Negative) Urine WBC (Auto) 6-10 H (0-5) /hpf Urine RBC (Auto) 0-2 (0-2) /hpf U Hyaline Cast (Auto) 0-2 (0-2) /lpf U Epithel Cells (Auto) 0-2 (0-2) /hpf Urine Bacteria (Auto) 2+ H (None Seen) Adenovirus (PCR) Not Detected (NotDetected) B. pertussis DNA (PCR) Not Detected (NotDetected) B.parapertussis DNA PCR Not Detected (NotDetected) C. pneumoniae DNA (PCR) Not Detected (NotDetected) Coronavirus OC43 (PCR) Not Detected (NotDetected) Coronavirus HKU1 (PCR) Not Detected (NotDetected) Coronavirus 229E (PCR) Not Detected (NotDetected) SARS-CoV-2 (PCR) Not Detected (NotDetected) Coronavirus NL63 (PCR) Not Detected (NotDetected) Human Metapneumovir PCR Not Detected (NotDetected) Influenza Type A (PCR) Not Detected (NotDetected) Influenza Type B (PCR) Not Detected (NotDetected) M. pneumoniae (PCR) Not Detected (NotDetected) Parainfluenza 1 (PCR) Not Detected (NotDetected) Parainfluenza 2 (PCR) Not Detected (NotDetected) Parainfluenza 3 (PCR) Not Detected (NotDetected) Parainfluenza 4 (PCR) Not Detected (NotDetected) RSV (PCR) Not Detected (NotDetected) Entero/Rhino (PCR) Not Detected (NotDetected) PG Care Time/CCT Total # of Minutes Spent Total Time Spent with Patient: Total time spent is greater than 50% in coordination of care (as documented) at patient's floor/unit and/or counseling patient: Coding Level of Care Code 89393 INT INP/OBS CARE MIN Diagnoses Peptic ulcer disease K27.9
--- NOTE | 2024-04-24 07:50 | Hospitalist Progress Note ---
Date of Service April 24, 2024 Assessment & Plan (1) Peptic ulcer disease: Plan: 73-year-old female with a past medical history including thiamine deficiency, peptic ulcer disease, gastritis, adnexal mass, metabolic encephalopathy, migraines, asthma-COPD overlap syndrome, pulm hypertension, dysphagia, and food impaction of esophagus presented for concerns w/ UTI and intermittent abdominal and pelvic discomfort with family concerns for decreased PO intake/inability to gain weight and worsening issues with swallowing/feeling food being stuck recently. Also found to have elevated troponin on admission, suspected 2nd to demand ischemia from malnourishment/possible underlying GI bleed given hx severePUD/gastritis Protonix PO BID continued and GI consulted on admission CTAP w/ oral and IV contrast noting findings suggesting ulcer at the distal antrum of the stomach with gastric outlet obstruction. High density material in the stomach likely represents retained barium. Underlying gastric hemorrhage is not excluded. Protonix PO converted to protonix gtt Diet changed to CLEAR LIQUIDS Per GI, recs for general surgery consult given longstanding nature/possible malignancy. Plans to add carafate this evening NPO at midnight for possible EGD in AM IVF w/ NS @ 30cc/hr as well (weight 29.5kg), nutrition consulted as well Monitor labs/electrolytes as below (2) Gastritis: Plan: as above, concerns w/ PUD Protonix PO --> gtt, GI consulted and NPO at midnight. Carafate to be added this evening (3) Severe protein-calorie malnutrition: Plan: BMI 13.6, nutrition consulted Her son reports that he has been having her take nutritional supplements on a regular basis. Has a history of severe PUD/gastritis as well as food impaction CTAP from 02/24/2024 with significant peptic ulcer disease and gastritis -- repeat as above and plan as outlined. Speech consulted as well, can f/u once tx above #Generalized weakness/deconditioning multifactorial suspected, UTI/malnutrition. plan as above and PT/OT consulted (4) Acute UTI: Plan: Concerns for such given lower abdominal pain/pelvic pain and presenting sx UA w/ 2+ leuk esterase, 6-10 WBC, 2+ bacteria Ceftriaxone IV daily ordered and f/u urine cx (5) Elevated troponin: Plan: suspect 2nd to demand ischemia from infection/dehydration/PUD above Did peak/trend down but again elevated ECHO ordered for eval and given hx [place] Chris, cardiology consulted/appreciate recs Trend troponin to peak, IVF ordered Continue to monitor on telemetry Plan Dispo: continued inpatient stay, diet changed to clear liquids given CTAP and protonix gtt/carafate to start. Gentle IVF for dehydration on exam. Nutrition consulted NPO at midnight for EGD in AM PT/OT evals while inpatient and speech consult f/u following EGD/results/recs per GI/surgery Admission and Anticipated Discharge Date Admission Date: April 23, 2024 Supervising Physician Co-Signing Physician Notes The patient was not seen by me. The chart was reviewed. Case discussed with ELAN Morris. Agree with assessment and plan Subjective EValuated this morning, resting in bed. Feels slightly better than admission, slightly less suprapubic discomfort. Continues on abx for UTI. Getting oral contrast for CTAP, discussed to take it easy/let us know if issues. SOme nausea but doesn't want anything at this time. Some shortness of breath related to swallowing but no cough/sputum production at this time. Boosted up in bed with nursing for comfort. Will await CTAP/GI consultation for further recommendations. She reports taking multivitamin lately but does have issues with her pills at times. Took alright this morning, speech consult pending. Physical Exam 2 Physical Exam: General: 73yo frail/thin/malnourished female sitting up in bed, NAD, trying to drink the oral contrast HEENT: head atraumatic, normocephalic, mm DRY, trachea midline Resp: even/unlabored, no wheezing/rales, on room air CV: RRR, no significant mrg, not pitting edema/calf tenderness GI: +BS, slight distension, +tenderness epigastric/pelvic region, no rebound/guarding no steinberg MSK/Neuro: following commands, no slurred speech, not confused Psych: AOx3, cooperative Results & Data Results & Data Vital Signs (Past 12 Hours) Vital Signs Temp Pulse Pulse Resp BP BP Pulse Ox 04/24/24 07:45 36.7 C 78 20 147/75 H 97 04/24/24 07:40 71 04/24/24 04:07 74 04/24/24 03:40 36.7 C 71 18 149/72 H 98 04/24/24 01:13 36.4 C L 75 18 168/89 H 98 04/24/24 01:12 78 18 148/78 H 98 04/24/24 01:00 36.4 C L 75 18 168/89 H 98 04/23/24 23:00 76 18 146/88 H 97 04/23/24 21:10 79 04/23/24 21:07 80 20 150/83 H 100 O2 Del Method 04/24/24 07:45 Room Air 04/24/24 07:40 04/24/24 04:07 04/24/24 03:40 Room Air 04/24/24 01:13 Room Air 04/24/24 01:12 Room Air 04/24/24 01:00 Room Air 04/23/24 23:00 Room Air 04/23/24 21:10 04/23/24 21:07 Room Air Laboratory Results 04/24/24 07:28 04/23/24 17:20 Troponin 92.5--> 99.2--> 88.9 --> 106.1 --> 109.9 Diagnostic Findings Chest X-Ray 04/23/24 17:42 INDICATION: Weakness. TECHNIQUE: Frontal radiograph of the chest. COMPARISON: Radiograph from 02/22/2024. FINDINGS: The cardiomediastinal silhouette and pulmonary vasculature appear within normal limits. The lungs appear hyperinflated. Bilateral apical pleural scarring. No infiltrate, pleural effusion or pneumothorax. No acute osseous abnormality evident. IMPRESSION: No acute cardiopulmonary process. Findings likely related to COPD. Electronically signed by Phani Yi 04-23-2024 6:19 PM Abdomen/Pelvis CT 04/24/24 06:[address] WITH IV AND ORAL CONTRAST CT DOSE: 250.56 mGy.cm HISTORY: Suspected Gastric Outlet Obstr from PUD TECHNIQUE: Multiaxial CT images of the abdomen and pelvis were performed following the IV administration of 90 cc of Optiray and oral contrast. A dose lowering technique was utilized adhering to the principles of ALARA. COMPARISON STUDY: 02/24/2024 FINDINGS: ABDOMEN: There is wall thickening and enhancement at the distal antrum of the stomach suggesting ulcer. There is high density material layering within the stomach which likely represents layering barium. Stomach is distended with fluid otherwise consistent with gastric outlet obstruction. There is a tiny cyst in the liver. Otherwise the liver, gallbladder, spleen, and adrenal glands are unremarkable. There is mild pancreatic atrophy. There are scattered atherosclerotic calcifications. No abdominal aortic aneurysm. Pelvis: Urinary bladder is nondistended. Uterus and adnexa are grossly unremarkable. There is mild retained stool. No bowel inflammation or obstruction. No free fluid, free air, or abscess. No enlarged adenopathy. Osseous structures: There is moderate lumbar degenerative disc disease. IMPRESSION: 1. Findings suggesting ulcer at the distal antrum of the stomach with gastric outlet obstruction. 2. High density material in the stomach likely represents retained barium. Underlying gastric hemorrhage is not excluded. Suggest clinical correlation. 3. Otherwise as described. ACT 112: Negative or not required by law. The above report was generated using voice recognition software. It may contain grammatical, syntax or spelling errors. Electronically signed by: Mikey Lovell M.D. 04/24/2024 10:46 AM PG Care Time/CCT Total # of Minutes Spent Total Time Spent with Patient: Total time spent is greater than 50% in coordination of care (as documented) at patient's floor/unit and/or counseling patient: Coding Level of Care Code 82160 SUB INP/OBS CARE 3/50MIN Diagnoses Peptic ulcer disease K27.9 Gastritis K29.70 Severe protein-calorie malnutrition E43 Acute UTI N39.0 Elevated troponin R79.89
[2024-04-24 08:09] LABS: Basophils # (auto) 0.01 K/uL (0.00-0.20); Basophils % (auto) 0.1 %; Hematocrit (blood only) 37.6 % (37.0-47.0); Hemoglobin 12.3 g/dl (12.0-16.0); Immature Granulocytes # (auto) 0.03 K/uL (0.01-0.20); Immature Granulocytes % (auto) 0.3 %; Lymphocytes # (auto) 0.79 K/uL (1.20-3.40); Lymphocytes % (auto) 7.8 %; Mean Corpuscular Hemoglobin 32.4 pg (25.0-34.0); Mean Corpuscular Hgb Conc 32.7 g/dL (32.0-36.0); Mean Corpuscular Volume 98.9 fL (80.0-100.0); Mean Platelet Volume 9.5 fL (9.4-12.4); Monocytes # (auto) 0.85 K/uL (0.11-0.59); Monocytes % (auto) 8.3 %; Neutrophils # (auto) 8.51 K/uL (1.40-6.50); Neutrophils % (auto) 83.5 %; Platelet Count 328 K/uL (130-400); RDW Coefficient of Variation 13.5 % (11.5-14.5); RDW Standard Deviation 49.6 fL (36.4-46.3); White Blood Count 10.19 K/ul (4.8-10.8)
[2024-04-24 08:17] LABS: Magnesium 1.9 mg/dl (1.7-2.4)
[2024-04-24 08:35] LABS: Troponin I High Sensitivity 106.1 pg/ml (0-14)
[2024-04-24] MEDS: METOPROLOL SUCC 50MG EXT REL TAB PO SCH (09:24)
[2024-04-24] MEDS: HEPARIN SOD 5,000 UNIT/0.5 ML VIAL SQ SCH (09:24)
[2024-04-24] MEDS: FLUTICASONE/VILANTEROL 100/25MCG 14 PUFFS/INHALER INH SCH (09:25)
[2024-04-24] MEDS: OPTIRAY 320 100ml IV ONE (10:32)
--- NOTE | 2024-04-24 10:49 | CT Scan Report ---
ABDOMEN AND PELVIS CT WITH IV AND ORAL CONTRAST CT DOSE: 250.56 mGy.cm HISTORY: Suspected Gastric Outlet Obstr from PUD TECHNIQUE: Multiaxial CT images of the abdomen and pelvis were performed following the IV administrat ion of 90 cc of Optiray and oral contrast. A dose lowering technique was utilized adhering to the pr inciples of HANY. COMPARISON STUDY: 02/24/2024 FINDINGS: ABDOMEN: There is wall thickening and enhancement at the distal antrum of the stomach suggesting ulce r. There is high density material layering within the stomach which likely represents layering barium . Stomach is distended with fluid otherwise consistent with gastric outlet obstruction. There is a tiny cyst in the liver. Otherwise the liver, gallbladder, spleen, and adrenal glands are u nremarkable. There is mild pancreatic atrophy. There are scattered atherosclerotic calcifications. No abdominal aortic aneurysm. Pelvis: Urinary bladder is nondistended. Uterus and adnexa are grossly unremarkable. There is mild re tained stool. No bowel inflammation or obstruction. No free fluid, free air, or abscess. No enlarged adenopathy. Osseous structures: There is moderate lumbar degenerative disc disease. IMPRESSION: 1. Findings suggesting ulcer at the distal antrum of the stomach with gastric outlet obstruction. 2. High density material in the stomach likely represents retained barium. Underlying gastric hemorrh age is not excluded. Suggest clinical correlation. 3. Otherwise as described. ACT 112: Negative or not required by law. The above report was generated using voice recognition software. It may contain grammatical, syntax o r spelling errors. Electronically signed by: Mikey Lovell M.D. 04/24/2024 10:46 AM
[2024-04-24] MEDS: MAGNESIUM SULFATE / D5W 1 GM/100 ML BAG IV ONE (11:08)
[2024-04-24] MEDS: PANTOprazole 40 MG in DEXTROSE 5% MINI-B 100 ML IV SCH (12:55)
[2024-04-24] MEDS: SODIUM CHLORIDE 0.9% 1,000 ML IV SCH (12:55)
[2024-04-24 13:18] LABS: Calcium 9.3 mg/dl (8.6-10.3)
[2024-04-24 13:23] LABS: BUN Creatinine Ratio 13.9 (10-20)
--- NOTE | 2024-04-24 13:55 | Electrocardiogram Report ---
Test Reason : Blood Pressure : */* mmHG Vent. Rate : 80 BPM Atrial Rate : * BPM P-R Int : * ms QRS Dur : 76 ms QT Int : 398 ms P-R-T Axes : * 85 87 degrees QTcB Int : 459 ms Sinus rhythm Nonspecific T wave abnormality Abnormal ECG Confirmed by Nikita Gonzalez ([id number]) on 04/24/2024 1:54:37 PM Referred By: REFERRED SELF Confirmed By: Nikita Gonzalez
--- NOTE | 2024-04-24 14:04 | Surgery Consultation ---
Date of Consultation April 24, 2024 Assessment & Plan (1) Acute UTI: (2) Dysphagia: (3) Gastric outlet obstruction: Plan 73F with significant PMHx as listed below presents with eating disturbance and now has CT evidence for GOO. Etiology currently unknown. The patient has been HD stable, without fevers or abdominal pain. H/H stable. GI and surgical consultations requested. GI planning EGD tomorrow. No acute surgical intervention at this time. Recommended NGT decompression as pt appears with GOO and would also help with GI's endoscopic procedure tomorrow. Pt reportedly has absolutely refused this. Pt is on Protonix. Would recommend holding any further attempts at oral intake until EGD results. Will follow up results of GI's diagnostic procedure tomorrow and further surgical plan to follow. History of Present Illness Reason for Consultation: PUD, CTAP active ulcer antrum, GI req, ?malignant Attending Physician: Ian Fernández MD History of Present Illness The patient is a 73-year-old female with a past medical history including thiamine deficiency, peptic ulcer disease, gastritis, adnexal mass, history of metabolic encephalopathy, migraines, asthma-COPD overlap syndrome, pulm hypertension, dysphagia, and food impaction of esophagus. Family concerns regarding decreased oral intake, and inability to gain weight. She does note significantly worsening issues with swallowing, other has noted in the food being stuck recently. Her primary concern this evening is related to concerns regarding her urinary tract infection, and symptoms of intermittent abdominal and pelvic discomfort. A CT A/P performed this am revealed an extremely chronically enlarged stomach with evidence suggestive of a distal antral ulcer causing a GOO. Upon seeing the patient this am, he states that the previous mid to lower abdominal pain she came in with has resolved. She had previous vomiting she admits of green fluid. She denies nausea and maintains that she has a hard time getting some foods down so she has not been very interested in the food she receives on her tray. With regards to her diagnosed UTI, she notes an off-putting smell from her vaginal area when she uses the restroom. Allergies Allergy/AdvReac Type Severity Reaction Status Date / Time ciprofloxacin [From Cipro] Allergy Rash Verified 11/10/23 13:52 Penicillins Allergy Rash Verified 11/10/23 13:52 Sulfa (Sulfonamide Allergy Rash Verified 11/10/23 13:52 Antibiotics) Home Medications Medication Instructions Recorded Confirmed Type sumatriptan succinate 100 mg tablet 100 mg PO UD PRN Migraine Headache 03/16/21 04/23/24 History Flutter Valve #1 ea 11/15/23 11/15/23 Rx guaifenesin 600 mg tablet, 600 mg PO BID PRN congestion #60 11/15/23 04/23/24 Rx extended release 12 hr (Mucinex) tabs metoprolol succinate 100 mg 50 mg (1/2 x 100 mg) PO DAILY #0 02/11/24 04/23/24 Rx tablet,extended release 24 hr tabs pantoprazole 40 mg tablet,delayed 40 mg PO BID #60 tabs 03/02/24 04/23/24 Rx release fluticasone furoate 100 1 inh inhalation DAILY 04/23/24 04/23/24 History mcg-vilanterol 25 mcg/dose inhalation powder (Breo Ellipta) Patient History Medical History GERD (gastroesophageal reflux disease) Social History Smoking Status: Never smoker Tobacco Type: Cigarettes Hx Alcohol Use: Yes Alcohol type: wine Hx Substance Use: No Preferred Language: Israeli Communication Ability: Effective Director Veterinary Required: No Beliefs That Will Affect Care: None Current Living Situation: Alone Current Living Situation Comment: Patient stated that passed 3 years ago and she has lived alone Feels Safe at Home: Yes Assistive Devices: Glasses Review of Systems Constitutional: + fatigue and + weight loss; no fever an d no chills Respiratory: no cough, no chest congestion and no wheezing Gastrointestinal: + abdominal pain (resolved) and + vomiti ng; no nausea and no diarrhea/loose stools Neurologic: no abnormal speech Physical Exam Constitutional: + frail appearing, cooperative and comfo rtable; no acute distress Respiratory: normal respiratory effort; no respiratory distress, no labored breathing and does not use accessory muscles Gastrointestinal (Abdomen): Inspection/Auscultation: + scaphoid non-distended non-TTP Neurologic: moves all extremities and awake Speech / Cognition: normal speech Results & Data Vital Signs (Past 12 Hours) Vital Signs Temp Pulse Pulse Resp BP Pulse Ox O2 Del Method 04/24/24 11:23 36.4 C L 80 20 158/92 H 99 Room Air 01/21/25 08:40 Room Air 04/24/24 07:45 36.7 C 78 20 147/75 H 97 Room Air 04/24/24 07:40 71 04/24/24 04:07 74 04/24/24 03:40 36.7 C 71 18 149/72 H 98 Room Air Diagnostic Findings 04/24/[address] WITH IV AND ORAL CONTRAST CT DOSE: 250.56 mGy.cm HISTORY: Suspected Gastric Outlet Obstr from PUD TECHNIQUE: Multiaxial CT images of the abdomen and pelvis were performed following the IV administration of 90 cc of Optiray and oral contrast. A dose lowering technique was utilized adhering to the principles of ALARA. COMPARISON STUDY: 02/24/2024 FINDINGS: ABDOMEN: There is wall thickening and enhancement at the distal antrum of the stomach suggesting ulcer. There is high density material layering within the stomach which likely represents layering barium. Stomach is distended with fluid otherwise consistent with gastric outlet obstruction. There is a tiny cyst in the liver. Otherwise the liver, gallbladder, spleen, and adrenal glands are unremarkable. There is mild pancreatic atrophy. There are scattered atherosclerotic calcifications. No abdominal aortic aneurysm. Pelvis: Urinary bladder is nondistended. Uterus and adnexa are grossly unremarkable. There is mild retained stool. No bowel inflammation or obstruction. No free fluid, free air, or abscess. No enlarged adenopathy. Osseous structures: There is moderate lumbar degenerative disc disease. IMPRESSION: 1. Findings suggesting ulcer at the distal antrum of the stomach with gastric outlet obstruction. 2. High density material in the stomach likely represents retained barium. Underlying gastric hemorrhage is not excluded. Suggest clinical correlation. 3. Otherwise as described. I personally reviewed the images to appreciate GOO findings Results Complete Blood Count Results: RBC 3.80 M/uL (4.20-5.40) L 04/24/24 WBC 10.19 K/ul (4.8-10.8) 04/24/24 Hgb 12.3 g/dl (12.0-16.0) 04/24/24 Hct 37.6 % (37.0-47.0) 04/24/24 Plt Count 328 K/uL (130-400) 04/24/24 Results BMP Results: Sodium 139 mmol/L (136-145) 04/24/24 Potassium 4.0 mmol/L (3.5-5.1) 04/24/24 Chloride 99 mmol/L (98-107) 04/24/24 Carbon Dioxide 33 mmol/L (21-32) H 04/24/24 Anion Gap 7 (3-11) 04/24/24 BUN 15 mg/dl (6-23) 04/24/24 Creatinine 1.08 mg/dl (0.6-1.2) 04/24/24 Glucose 144 mg/dl (70-99(Fasting)) H 04/24/24 Results CMP Results: Sodium 139 mmol/L (136-145) 04/24/24 Potassium 4.0 mmol/L (3.5-5.1) 04/24/24 Chloride 99 mmol/L (98-107) 04/24/24 Carbon Dioxide 33 mmol/L (21-32) H 04/24/24 Anion Gap 7 (3-11) 04/24/24 BUN 15 mg/dl (6-23) 04/24/24 Creatinine 1.08 mg/dl (0.6-1.2) 04/24/24 eGFR 53.57 04/24/24 Est GFR ( Amer) 77.1 ml/min 08/04/23 Est GFR (Non-Af Amer) 66.6 ml/min 08/04/23 BUN/Creatinine Ratio 13.9 (10-20) 04/24/24 Glucose 144 mg/dl (70-99(Fasting)) H 04/24/24 Calcium 9.3 mg/dl (8.6-10.3) 04/24/24 Phosphorus 2.3 mg/dl (2.5-4.9) L 02/29/24 Total Bilirubin 0.5 mg/dl (0.2-1.0) 04/23/24 AST 20 U/L (13-39) 04/23/24 ALT 8 U/L (7-52) 04/23/24 Alkaline Phosphatase 98 U/L (34-104) 04/23/24 Total Protein 7.3 gm/dl (6.0-8.3) 04/23/24 Albumin 4.1 gm/dl (3.4-5.0) 04/23/24 Globulin 3.2 gm/dl (2.5-4.0) 04/23/24 Albumin/Globulin Ratio 1.3 (0.9-2) 04/23/24 Results Urinalysis: Urine Color Yellow 04/23/24 Urine Appearance Turbid (Clear) A 04/23/24 Urine pH >= 9.0 (4.5-7.5) H 04/23/24 Ur Specific [place] 1.009 (1.000-1.030) 04/23/24 Urine Protein Negative (Negative) 04/23/24 Urine Glucose (UA) Negative (Negative) 04/23/24 Urine Ketones Negative (Negative) 04/23/24 Urine Blood Negative (Negative) 04/23/24 Urine Nitrite Negative (Negative) 04/23/24 Urine Bilirubin Negative (Negative) 04/23/24 Urine Urobilinogen Negative (Negative) 04/23/24 Ur Leukocyte Esterase 2+ (Negative) H 04/23/24 Urine WBC (Auto) 6-10 /hpf (0-5) H 04/23/24 Urine RBC (Auto) 0-2 /hpf (0-2) 04/23/24 Urine Hyaline Casts (Auto) 0-2 /lpf (0-2) 04/23/24 Urine Epithelial Cells (Auto) 0-2 /hpf (0-2) 04/23/24 Urine Bacteria (Auto) 2+ (None Seen) H 04/23/24 Urine Culture: Micro Urine Specimen 04/23/24 PG Care Time/CCT Total # of Minutes Spent Total Time Spent with Patient: Total time spent is greater than 50% in coordination of care (as documented) at patient's floor/unit and/or counseling patient: [place] [address] INT INP/OBS CARE 1/40MIN Patient Type New Diagnoses Acute UTI N39.0 Dysphagia R13.10 Gastric outlet obstruction K31.1
--- NOTE | 2024-04-24 14:06 | Electrocardiogram Report ---
Test Reason : Blood Pressure : */* mmHG Vent. Rate : 81 BPM Atrial Rate : 88 BPM P-R Int : 112 ms QRS Dur : 116 ms QT Int : 456 ms P-R-T Axes : * 83 85 degrees QTcB Int : 529 ms Sinus rhythm with Premature atrial complexes Possible Anterolateral infarct , age undetermined Prolonged QT Abnormal ECG When compared with ECG of 23-Apr-2024 17:08, (unconfirmed) Sinus rhythm has replaced Junctional rhythm QRS duration has increased Nonspecific T wave abnormality, improved in Anterior leads QT has lengthened Confirmed by Nikita Gonzalez ([id number]) on 04/24/2024 2:05:36 PM Referred By: REFERRED SELF Confirmed By: Nikita Gonzalez
[2024-04-24] MEDS ORDERED: hydrALAZINE HCL 20 MG/ML VIAL IV PRN (15:17)
[2024-04-24] MEDS: METOPROLOL SUCC 25MG EXT REL TAB PO ONE (15:17)
[2024-04-24] MEDS: SUCRALFATE 1 GM/10 ML UDC PO SCH (17:31)
--- NOTE | 2024-04-25 06:34 | Cardiology Consultation ---
Date of Consultation April 24, 2024 1:30 pm Assessment & Plan (1) Preop cardiovascular exam: (2) NSTEMI (non-ST elevated myocardial infarction): (3) Gastric outlet obstruction: (4) Dehydration: (5) GAVIN (acute kidney injury): (6) Lown Ganong Chris syndrome: Plan Her BB dose was increased for HR control, HTN. ECHO with normal EF. From a cardiovascular standpoint, she is considered appropriate candidate for the EGD scheduled for Tuesday. Her CV risk is intermediate. Would proceed in OR given abnormal expected findings based on her CT scans. Will follow along with you, cont BB periop-IV if needed given GI issues. Patient waS SEEN and case discussed with GI on 04/24/24. History of Present Illness Reason for Consultation: NSTEMI and preop for EGD in OR Requesting Physician: GI/surgery Attending Physician: Ian Fernández MD History of Present Illness The patient is a 73-year-old female with a past medical history including, Tjwq-Brovnk-Eejzew (ECG with short AR interval and accessory pathway producing SVT) thiamine deficiency, peptic ulcer disease, gastritis, adnexal mass, history of metabolic encephalopathy, migraines, asthma-COPD overlap syndrome, pulm hypertension, dysphagia, and food impaction of esophagus. Family concerns regarding decreased oral intake, and inability to gain weight. She does note significantly worsening issues with swallowing, other has noted in the food being stuck recently. Her primary concern this evening is related to concerns regarding her tract infection, and symptoms of intermittent abdominal and pelvic discomfort. Initial presentation with vomiting. Cardiac troponin in slightly elevated. Her ECG is c/w LGL. She has not had chest pain or increased SOB. Last ECHO with normal LV function, diastolic dysfunction and mild pulm HTN. The Weqc-Nejtaq-Evmucq (LGL) pattern is characterized by the presence of a short AR interval (120 milliseconds) and normal QRS complex on the surface ECG. This finding may represent a perinodal accessory pathway or enhanced AV mehnaz co nduction. 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 Allergies Allergy/AdvReac Type Severity Reaction Status Date / Time ciprofloxacin [From Cipro] Allergy Rash Verified 11/10/23 13:52 Penicillins Allergy Rash Verified 11/10/23 13:52 Sulfa (Sulfonamide Allergy Rash Verified 11/10/23 13:52 Antibiotics) Home Medications Medication Instructions Recorded Confirmed Type sumatriptan succinate 100 mg tablet 100 mg PO UD PRN Migraine Headache 03/16/21 04/23/24 History Flutter Valve #1 ea 11/15/23 11/15/23 Rx guaifenesin 600 mg tablet, 600 mg PO BID PRN congestion #60 11/15/23 04/23/24 Rx extended release 12 hr (Mucinex) tabs metoprolol succinate 100 mg 50 mg (1/2 x 100 mg) PO DAILY #0 02/11/24 04/23/24 Rx tablet,extended release 24 hr tabs pantoprazole 40 mg tablet,delayed 40 mg PO BID #60 tabs 03/02/24 04/23/24 Rx release fluticasone furoate 100 1 inh inhalation DAILY 04/23/24 04/23/24 History mcg-vilanterol 25 mcg/dose inhalation powder (Breo Ellipta) Patient History Medical History GERD (gastroesophageal reflux disease) Social History Smoking Status: Never smoker Tobacco Type: Cigarettes Hx Alcohol Use: Yes Alcohol type: wine Hx Substance Use: No Preferred Language: Slovenian Communication Ability: Effective 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: No Beliefs That Will Affect Care: None Current Living Situation: Alone Current Living Situation Comment: Patient stated that passed 3 years ago and she has lived alone Feels Safe at Home: Yes Assistive Devices: Glasses Review of Systems Review of Systems: All systems reviewed & are unremarkable except as noted in HPI & below Physical Exam Physical Exam: appears, very thin in NAD Respiratory: significant kyphosis diminished BS, but clear b/l Cardiovascular: Rate/Rhythm: regular rate and regular rhythm Heart Sounds: normal S1 and normal S2 Results & Data Vital Signs (Past 12 Hours) Vital Signs Temp Pulse Pulse Resp BP Pulse Ox O2 Del Method 04/25/24 04:01 36.6 C 72 16 129/68 96 Room Air 04/24/24 23:10 36.5 C 74 18 135/69 94 Room Air 04/24/24 21:47 66 04/24/24 19:29 36.7 C 79 18 139/79 93 Room Air Laboratory Results Abnormal lab results 04/24/24 04/24/24 04/24/24 Range/Units 07:28 07:28 12:38 RBC 3.80 L (4.20-5.40) M/uL RDW Std Deviation 49.6 H (36.4-46.3) fL Neut # (Auto) 8.51 H (1.40-6.50) K/uL Lymph # (Auto) 0.79 L (1.20-3.40) K/uL Carter # (Auto) 0.85 H (0.11-0.59) K/uL Carbon Dioxide 33 H (21-32) mmol/L Glucose 144 H (70-99(Fasting)) mg/dl Troponin I High Sens 106.1 H* 109.9 H* 107.7 H* (0-14) pg/ml Current Inpatient Medications Acetaminophen (Acetaminophen 325 Mg Tab) 650 mg PO Q4H PRN PRN Reason: Pain or Fever Stop: 05/24/24 01:12 Last Admin: 04/24/24 20:23 Dose: 650 mg Fluticasone/Vilanterol (Fluticasone/Vilanterol 100/25mcg 14 Puffs/Inhaler) 1 puffs INH DAILY JANET Stop: 05/24/24 08:59 Last Admin: 04/24/24 09:25 Dose: 1 puffs Heparin Sodium (Porcine) (Heparin Sod 5,000 Unit/0.5 Ml Vial) 5,000 units SQ Q12 JANET Stop: 05/24/24 08:59 Last Admin: 04/24/24 20:23 Dose: Not Given Hydralazine HCl (Hydralazine Hcl 20 Mg/Ml Vial) 10 mg IV Q8H PRN PRN Reason: hypertension Stop: 05/24/24 15:16 Ceftriaxone Sodium (Rocephin) 2,000 mg in 50 mls @ 100 mls/hr IV Q24H JANET Stop: 04/29/24 01:12 Last Infusion: 04/25/24 02:00 Dose: Infused Pantoprazole Sodium 40 mg/ (Dextrose) 100 mls @ 20 mls/hr IV Q5H JANET Stop: 05/24/24 11:29 Last Admin: 04/25/24 03:00 Dose: 8 mg/hr, 20 mls/hr Sodium Chloride (Nss) 1,000 mls @ 40 mls/hr IV .Q24H JANET Stop: 04/25/24 12:14 Last Infusion: 04/24/24 15:23 Dose: 40 mls/hr Metoprolol Succinate (Metoprolol Succ 25mg Ext Rel Tab) 75 mg PO DAILY [facility] Stop: 05/25/24 08:59 Ondansetron HCl (Ondansetron Inj 2 Mg/Ml 2 Ml Vial) 4 mg IV Q6H PRN PRN Reason: Nausea Stop: 05/24/24 01:12 Sucralfate (Sucralfate 1 Gm/10 Ml Udc) 1 gm PO QID [facility] Stop: 05/24/24 17:59 Last Admin: 04/24/24 20:23 Dose: 1 gm Sumatriptan Succinate (Sumatriptan Succinate 100 Mg Tab) 100 mg PO BID PRN PRN Reason: Migraine Headache Stop: 05/24/24 01:12 Last Admin: 04/24/24 01:50 Dose: 100 mg ECG Additional Comments: see above ecg c/w LGL
--- NOTE | 2024-04-25 07:42 | Hospitalist Progress Note ---
Date of Service April 25, 2024 Assessment & Plan (1) Peptic ulcer disease: Plan: 73-year-old female with a past medical history including thiamine deficiency, peptic ulcer disease, gastritis, adnexal mass, metabolic encephalopathy, migraines, asthma-COPD overlap syndrome, pulm hypertension, dysphagia, and food impaction of esophagus presented for concerns w/ UTI and intermittent abdominal and pelvic discomfort with family concerns for decreased PO intake/inability to gain weight and worsening issues with swallowing/feeling food being stuck recently. Also found to have elevated troponin on admission, suspected 2nd to demand ischemia from malnourishment/possible underlying GI bleed given hx severePUD/gastritis Protonix PO BID continued and GI consulted and added general surgery consult given GOO as below CTAP w/ oral and IV contrast noting findings suggesting ulcer at the distal antrum of the stomach with gastric outlet obstruction. High density material in the stomach likely represents retained barium. Underlying gastric hemorrhage is not excluded. Placed on protonix gtt 04/24, continued Carafate QID added Continue NS @ 40cc/hr while NPO Denied NGT per surgery would place if emesis recurs, but has not 04/25 No further abdominal pain at present but remains NPO for EGD today. Per GI, pending evaluation, she may benefit from a gastrojejunostomy if process is not amendable to balloon dilatation Nutrition consulted Montior labs/exam in AM (2) Gastritis: Plan: as above, concerns w/ PUD and GOO Remains on protonix gtt, carafate adder per surgery consult and planning for EGD today as above (3) Severe protein-calorie malnutrition: Plan: BMI 13.6, nutrition consulted Her son reported that he has been having her take nutritional supplements on a regular basis. History of severe PUD/gastritis as well as food impaction CTAP from 02/24/2024 with significant peptic ulcer disease and gastritis -- repeat as above and plan as outlined. Speech consulted as well, can f/u once tx above #Generalized weakness/deconditioning multifactorial suspected, UTI/malnutrition. plan as above and PT/OT consulted (4) Acute UTI: Plan: Concerns for such given lower abdominal pain/pelvic pain and presenting sx UA w/ 2+ leuk esterase, 6-10 WBC, 2+ bacteria -- Ceftriaxone 2gm IV continued for UTI, urine cx pansensitive ecoli on preliminary and can convert to PO in AM 04/26 pending EGD/when taking PO reliably (5) Elevated troponin: Plan: suspect 2nd to demand ischemia from infection/dehydration/PUD above as well as dehydration Did peak and suspect 2nd to duodenal ulcer/malnutrition and pain ECHO noting mild mitral valve prolapse, moderate MR, moderate TR, RVSP 30-40mmhg Cardiology consulted, Dr Foley given hx Dovn Ac Chris -- see note, was provided additional 25mg metoprolol and increased to 75mg PO daily (held this AM for HR 50s). Continues on telemetry Plan Dispo: continued inpatient stay, NPO for EGD this morning. Continues on Protonix gtt/carafate, IVF for maintenance and hydration appears much better today Nutrition consulted, f/u speech eval once tx ulcer/GOO as above PT/OT evals to be undertaken following EGD or in AM pending course. Admission and Anticipated Discharge Date Admission Date: April 23, 2024 Supervising Physician Co-Signing Physician Notes The patient was not seen by me. The chart was reviewed. Case discussed with ELAN Morris. Agree with assessment and plan Subjective EVal this morning, resting in bed. Hungry/no abdominal pain reported. She does note similar sx in the fall but weren't as severe as when she came in. Discussed EGD for this morning, hopefully will be taken down soon. Pending EGD/treatment hopeful clear liquids following but will need to see how it goes. Did have some emesis last evening however none presently, holding off NGT at this time but did discuss if recurs could be beneficial to decompress given GOO and will monitor. No CP/SOB reported today. Remains on PPI gtt, hgb stable on IVF and suspect prior was hemoconcentrated. Hydration status improved. No overload. No further reports of urinary sx, discussed urine cx and remains on IV abx but will convert to PO pending oral intake status in AM. Questions/concerns addressed at this time. Physical Exam 2 Physical Exam: General: 73yo frail/thin/malnourished female sitting up in bed, NAD, reports feeling better HEENT: head atraumatic, normocephalic, mm improved, trachea midline Resp: even/unlabored, no wheezing/rales, on room air 99% CV: RRR, faint systolic murmur, no pitting edema/calf tenderness, pulses present GI: +BS, slight distension, +LESS tenderness/none reported, no rebound/guarding no steinberg MSK/Neuro: following commands, no slurred speech, not confused Psych: AOx3, cooperative Results & Data Results & Data Vital Signs (Past 12 Hours) Vital Signs Temp Pulse Pulse Resp BP Pulse Ox O2 Del Method 04/25/24 07:06 54 L 04/25/24 04:01 36.6 C 72 16 129/68 96 Room Air 04/24/24 23:10 36.5 C 74 18 135/69 94 Room Air 04/24/24 21:47 66 Laboratory Results 04/25/24 09:19 04/25/24 09:19 Mag 1.9 Folate>22.3 PG Care Time/CCT Total # of Minutes Spent Total Time Spent with Patient: Total time spent is greater than 50% in coordination of care (as documented) at patient's floor/unit and/or counseling patient: Coding Level of Care Code 02154 SUB INP/OBS CARE 3/50MIN Diagnoses Peptic ulcer disease K27.9 Gastritis K29.70 Severe protein-calorie malnutrition E43 Acute UTI N39.0 Elevated troponin R79.89
[2024-04-25] MEDS: METOPROLOL SUCC 25MG EXT REL TAB PO SCH (08:19)
--- NOTE | 2024-04-25 08:33 | XCELERA ---
[id number] \\[email or web address]\[id number]
[2024-04-25 09:40] LABS: Basophils # (auto) 0.03 K/uL (0.00-0.20); Basophils % (auto) 0.5 %; Eosinophils # (auto) 0.18 K/uL (0.00-0.50); Eosinophils % (auto) 2.9 %; Hematocrit (blood only) 33.6 % (37.0-47.0); Hemoglobin 10.9 g/dl (12.0-16.0); Immature Granulocytes # (auto) 0.02 K/uL (0.01-0.20); Immature Granulocytes % (auto) 0.3 %; Lymphocytes # (auto) 1.01 K/uL (1.20-3.40); Lymphocytes % (auto) 16.2 %; Mean Corpuscular Hemoglobin 32.2 pg (25.0-34.0); Mean Corpuscular Hgb Conc 32.4 g/dL (32.0-36.0); Mean Corpuscular Volume 99.1 fL (80.0-100.0); Mean Platelet Volume 8.9 fL (9.4-12.4); Monocytes # (auto) 0.59 K/uL (0.11-0.59); Monocytes % (auto) 9.5 %; Neutrophils # (auto) 4.39 K/uL (1.40-6.50); Neutrophils % (auto) 70.6 %; Platelet Count 259 K/uL (130-400); RDW Coefficient of Variation 13.5 % (11.5-14.5); RDW Standard Deviation 49.5 fL (36.4-46.3); Red Blood Count 3.39 M/uL (4.20-5.40); White Blood Count 6.22 K/ul (4.8-10.8)
--- NOTE | 2024-04-25 09:49 | Gastroenterology Progress Note ---
Date of Service April 25, 2024 Assessment & Plan (1) Peptic ulcer disease: Plan: 73 year old female w/ history of thiamine deficiency, peptic ulcer disease, gastritis, adnexal mass, metabolic encephalopathy, migraines, asthma-COPD overlap syndrome, pulm hypertension, dysphagia admitted w/ UTI - GI asked to evaluate for ongoing gastrointestinal concerns regarding food aversions, weight loss, nausea and dysphagia. Last CT in 2023 showed gastritis vs PUD CT w/ ulcer at the distal antrum of the stomach with gastric outlet obstruction. Plan for EGD in the OR today for evaluation. Pending evaluation, she may benefit from a gastrojejunostomy if process is not amendable to balloon dilatation Please call with any acute changes, questions or concerns. Please see addendum below with additional recommendation from my supervising physician. We appreciate assistance in the management of any serological abnormality and corrections to include: hemoglobin >7, INR <2, platelets >50,000, potassium levels >3.5 but <5.3, and sodium levels within 5 points of the reference range prior to endoscopic evaluation. Admission and Anticipated Discharge Date Admission Date: April 23, 2024 Supervising Physician Co-Signing Physician Notes Patient seen in preop holding. States she continues to have some dry heaves. Denies significant abdominal pain. Reviewed diagnosis gastric outlet obstruction likely on the basis of chronic peptic ulcer disease I suspect this is longstanding. I believe this patient likely will require a gastrojejunostomy. Further recommendations made pending upper endoscopy plan today. Risks of procedure including bleeding and perforation discussed informed consent obtained. Subjective Pt was seen and evaluated. Notes no further emesis since yesterday around 1600. NG was refused. No abd pain. Passing gas but not BM this admission. CTAP 2024: Findings suggesting ulcer at the distal antrum of the stomach with gastric outlet obstruction. High density material in the stomach likely represents retained barium. Underlying gastric hemorrhage is not excluded. Suggest clinical correlation. Review of Systems Review of Systems: All other findings negative except as noted in HPI. Physical Exam Constitutional: Elderly appearing, thin female in no acute distress Respiratory: normal respiratory effort, lungs clear to auscultation Cardiovascular: Rate/Rhythm: regular rate and regular rhythm Gastrointestinal (Abdomen): normal bowel sounds, soft, nontender, no hepatosplenomegaly Skin: no rashes, warm and dry Results & Data Results & Data Vital Signs (Past 12 Hours) Vital Signs Temp Pulse Pulse Resp BP BP Pulse Ox 04/25/24 07:57 97.7 F 56 L 16 103/63 99 04/25/24 07:06 54 L 04/25/24 04:01 97.9 F 72 16 129/68 96 04/24/24 23:10 97.7 F 74 18 135/69 94 04/24/24 21:47 66 O2 Del Method 04/25/24 07:57 Room Air 04/25/24 07:06 04/25/24 04:01 Room Air 04/24/24 23:10 Room Air 04/24/24 21:47 Laboratory Results 04/25/24 04/24/24 04/23/24 Range/Units 09:19 12:38 17:20 WBC 6.22 (4.8-10.8) K/ul RBC 3.39 L (4.20-5.40) M/uL Hgb 10.9 L (12.0-16.0) g/dl Hct 33.6 L (37.0-47.0) % MCV 99.1 (80.0-100.0) fL MCH 32.2 (25.0-34.0) pg MCHC 32.4 (32.0-36.0) g/dL RDW Std Deviation 49.5 H (36.4-46.3) fL RDW Coeff of Michael 13.5 (11.5-14.5) % Plt Count 259 (130-400) K/uL MPV 8.9 L (9.4-12.4) fL Immature Gran % (Auto) 0.3 % Neut % (Auto) 70.6 % Lymph % (Auto) 16.2 % [place] % (Auto) 9.5 % Eos % (Auto) 2.9 % Baso % (Auto) 0.5 % Neut # (Auto) 4.39 (1.40-6.50) K/uL Lymph # (Auto) 1.01 L (1.20-3.40) K/uL [place] # (Auto) 0.59 (0.11-0.59) K/uL Eos # (Auto) 0.18 (0.00-0.50) K/uL Baso # (Auto) 0.03 (0.00-0.20) K/uL Immature Gran # (Auto) 0.02 (0.01-0.20) K/uL Sodium Pending 139 (136-145) mmol/L Potassium Pending 4.0 (3.5-5.1) mmol/L Chloride Pending 99 (98-107) mmol/L Carbon Dioxide Pending 33 H (21-32) mmol/L Anion Gap Pending 7 (3-11) BUN Pending 15 (6-23) mg/dl Creatinine Pending 1.08 (0.6-1.2) mg/dl Est Cr Clr Drug Dosing Pending 21.0 ml/min eGFR Pending 53.57 BUN/Creatinine Ratio Pending 13.9 (10-20) Glucose Pending 144 H (70-99(Fasting)) mg/dl Calcium Pending 9.3 (8.6-10.3) mg/dl Magnesium Pending Troponin I High Sens 107.7 H* (0-14) pg/ml 25-OH Vitamin D Total 51.6 (30-100) ng/ml Folate Pending PG Care Time/CCT Total # of Minutes Spent Total Time Spent with Patient: Total time spent is greater than 50% in coordination of care (as documented) at patient's floor/unit and/or counseling patient: Coding Level of Care Code None Diagnoses Peptic ulcer disease K27.9
[2024-04-25 09:58] LABS: Calcium 8.3 mg/dl (8.6-10.3); Creatinine Clr Calc Pharmacy 26.9 ml/min; Magnesium 1.9 mg/dl (1.7-2.4); Potassium 4.1 mmol/L (3.5-5.1)
[2024-04-25] MEDS ORDERED: fentaNYL citrate PF 100 MCG/2 ML VIAL IV PRN (14:21)
[2024-04-25] MEDS ORDERED: ePHEDrine sulfate 50 MG/ML AMP IV PRN (14:21)
[2024-04-25] MEDS ORDERED: PROMETHAZINE HCL 6.25 MG in SODIUM CHLORIDE 0.9% 50 ML IV PRN (14:21)
[2024-04-25] MEDS ORDERED: ATROPINE SULFATE 0.1 MG/ML 10ML SYR IV PRN (14:21)
--- NOTE | 2024-04-25 14:21 | Anesthesiology Consultation ---
Date of Service April 25, 2024 Assessment & Plan ASA ASA3E Proposed Anesthesia Anesthesia Type: General Risk / Benefits Reviewed With: PT / POA / Parent / Guardian, Accepts Plan and Informed Consent Obtained History Surgery Operation Date: 04/25/24 07:50 Proposed Procedures p Esophagogastroduodenoscopy - Elvis Nieves MD Height/Weight Height: 5 ft Weight: 32.6 kg Allergies Allergy/AdvReac Type Severity Reaction Status Date / Time ciprofloxacin [From Cipro] Allergy Rash Verified 11/10/23 13:52 Penicillins Allergy Rash Verified 11/10/23 13:52 Sulfa (Sulfonamide Allergy Rash Verified 11/10/23 13:52 Antibiotics) Medications Home Medications Medication Instructions Recorded Confirmed Last Taken sumatriptan succinate 100 mg tablet 100 mg PO UD PRN Migraine Headache 03/16/21 04/23/24 03/20/21 Flutter Valve #1 ea 11/15/23 11/15/23 Unknown guaifenesin 600 mg tablet, 600 mg PO BID PRN congestion #60 11/15/23 04/23/24 Unknown extended release 12 hr (Mucinex) tabs metoprolol succinate 100 mg 50 mg (1/2 x 100 mg) PO DAILY #0 02/11/24 04/23/24 03/20/21 tablet,extended release 24 hr tabs pantoprazole 40 mg tablet,delayed 40 mg PO BID #60 tabs 03/02/24 04/23/24 Unknown release fluticasone furoate 100 1 inh inhalation DAILY 04/23/24 04/23/24 Unknown mcg-vilanterol 25 mcg/dose inhalation powder (Breo Ellipta) Active Medications Generic Name Dose Route Start Last Admin Trade Name Freq PRN Reason Stop Dose Admin Acetaminophen 650 mg 04/24/24 01:13 04/24/24 20:23 Acetaminophen 325 Mg Tab PO 05/24/24 01:12 650 mg Q4H PRN Administration Pain or Fever Fluticasone/Vilanterol 1 puffs 04/24/24 09:00 04/25/24 09:12 Fluticasone/Vilanterol 100/25mcg 14 Puffs/Inhaler INH 05/24/24 08:59 1 puffs DAILY JANET Administration Heparin Sodium (Porcine) 5,000 units 04/24/24 09:00 04/25/24 08:14 Heparin Sod 5,000 Unit/0.5 Ml Vial SQ 05/24/24 08:59 Not Given Q12 JANET Ceftriaxone Sodium 2,000 mg in 50 mls @ 100 mls/hr 04/24/24 01:13 04/25/24 02:00 Rocephin IV 04/29/24 01:12 Infused Q24H JANET Infusion Pantoprazole Sodium 40 mg/ 100 mls @ 20 mls/hr 04/24/24 11:30 04/25/24 12:20 Dextrose IV 05/24/24 11:29 8 mg/hr Q5H JANET 20 mls/hr Administration 8 MG/HR Metoprolol Succinate 75 mg 04/25/24 09:00 04/25/24 08:19 Metoprolol Succ 25mg Ext Rel Tab PO 05/25/24 08:59 Not Given DAILY JANET Sucralfate 1 gm 04/24/24 18:00 04/25/24 13:45 Sucralfate 1 Gm/10 Ml Udc PO 05/24/24 17:59 Not Given QID JANET Sumatriptan Succinate 100 mg 04/24/24 01:13 04/24/24 01:50 Sumatriptan Succinate 100 Mg Tab PO 05/24/24 01:12 100 mg BID PRN Administration Migraine Headache NPO Date Last Intake of Fluids: 04/25/24 Time Last Intake of Fluids: 09:12 Date Last Intake of Solids: 04/24/24 Time Last Intake of Solids: 12:00 Past Medical History Medical History GERD (gastroesophageal reflux disease) Exercise / Class Metabolic Activity III < 4 Walking/Shop/Light housework Past Anesthesia History No Hx of Anesthesia Complications and No Family Hx of Anesthesia Complications History of PONV No Hx of PONV and No Hx of Motion Sickness Social History Smoking Status: Never smoker Hx Alcohol Use: Yes Alcohol type: wine alcohol intake frequency: holidays/special occasions only Hx Substance Use: No Physical Exam Vital Signs Last Vital Signs Temp 37 C 04/25/24 13:51 Pulse 58 L 04/25/24 14:00 Resp 16 04/25/24 13:51 BP 101/62 04/25/24 13:51 Pulse Ox 99 04/25/24 13:51 O2 Del Method Room Air 04/25/24 13:51 Constitutional + cachectic; no acute distress ENMT Mouth: + dentition abnormality, + edentulous and + small oral opening Thyromental Distance: > or= 3.5 Finger Breadths Mallampati Class: III Neck normal visual inspection Respiratory normal respiratory effort; no respiratory distress Auscultation: lungs clear to auscultation bilaterally Cardiovascular Rate/Rhythm: regular rate and regular rhythm Heart Sounds: no murmur Musculoskeletal Spine: normal cervical ROM Psychiatric Orientation: alert and oriented x 3 Testing Laboratory Results 04/25/24 09:19 04/25/24 09:19 Urine Color Yellow 04/23/24 17:20 Urine Appearance Turbid (Clear) A 04/23/24 17:20 Urine pH >= 9.0 (4.5-7.5) H 04/23/24 17:20 Ur Specific [place] 1.009 (1.000-1.030) 04/23/24 17:20 Urine Protein Negative (Negative) 04/23/24 17:20 Urine Glucose (UA) Negative (Negative) 04/23/24 17:20 Urine Ketones Negative (Negative) 04/23/24 17:20 Urine Nitrite Negative (Negative) 04/23/24 17:20 Ur Leukocyte Esterase 2+ (Negative) H 04/23/24 17:20 Urine WBC (Auto) 6-10 /hpf (0-5) H 04/23/24 17:20 Urine RBC (Auto) 0-2 /hpf (0-2) 04/23/24 17:20 U Hyaline Cast (Auto) 0-2 /lpf (0-2) 04/23/24 17:20 U Epithel Cells (Auto) 0-2 /hpf (0-2) 04/23/24 17:20 Urine Bacteria (Auto) 2+ (None Seen) H 04/23/24 17:20 04/23/24 17:20 Urine Culture - Final Urine,Clean Catch Escherichia coli Day of Procedure Evaluation. Date of Surgery April 25, 2024 Height/Weight Height: 5 ft Weight: 32.6 kg Vital Signs Last Vital Signs Temp 37 C 04/25/24 13:51 Pulse 58 L 04/25/24 14:00 Resp 16 04/25/24 13:51 BP 101/62 04/25/24 13:51 Pulse Ox 99 04/25/24 13:51 O2 Del Method Room Air 04/25/24 13:51 Allergies Allergy/AdvReac Type Severity Reaction Status Date / Time ciprofloxacin [From Cipro] Allergy Rash Verified 11/10/23 13:52 Penicillins Allergy Rash Verified 11/10/23 13:52 Sulfa (Sulfonamide Allergy Rash Verified 11/10/23 13:52 Antibiotics) Medications Home Medications Medication Instructions Recorded Confirmed Last Taken sumatriptan succinate 100 mg tablet 100 mg PO UD PRN Migraine Headache 03/16/21 04/23/24 03/20/21 Flutter Valve #1 ea 11/15/23 11/15/23 Unknown guaifenesin 600 mg tablet, 600 mg PO BID PRN congestion #60 11/15/23 04/23/24 Unknown extended release 12 hr (Mucinex) tabs metoprolol succinate 100 mg 50 mg (1/2 x 100 mg) PO DAILY #0 02/11/24 04/23/24 03/20/21 tablet,extended release 24 hr tabs pantoprazole 40 mg tablet,delayed 40 mg PO BID #60 tabs 03/02/24 04/23/24 Unknown release fluticasone furoate 100 1 inh inhalation DAILY 04/23/24 04/23/24 Unknown mcg-vilanterol 25 mcg/dose inhalation powder (Breo Ellipta) Active Medications Generic Name Dose Route Start Last Admin Trade Name Freq PRN Reason Stop Dose Admin Acetaminophen 650 mg 04/24/24 01:13 04/24/24 20:23 Acetaminophen 325 Mg Tab PO 05/24/24 01:12 650 mg Q4H PRN Administration Pain or Fever Fluticasone/Vilanterol 1 puffs 04/24/24 09:00 04/25/24 09:12 Fluticasone/Vilanterol 100/25mcg 14 Puffs/Inhaler INH 05/24/24 08:59 1 puffs DAILY JANET Administration Heparin Sodium (Porcine) 5,000 units 04/24/24 09:00 04/25/24 08:14 Heparin Sod 5,000 Unit/0.5 Ml Vial SQ 05/24/24 08:59 Not Given Q12 JANET Ceftriaxone Sodium 2,000 mg in 50 mls @ 100 mls/hr 04/24/24 01:13 04/25/24 02:00 Rocephin IV 04/29/24 01:12 Infused Q24H JANET Infusion Pantoprazole Sodium 40 mg/ 100 mls @ 20 mls/hr 04/24/24 11:30 04/25/24 12:20 Dextrose IV 05/24/24 11:29 8 mg/hr Q5H JANET 20 mls/hr Administration 8 MG/HR Metoprolol Succinate 75 mg 04/25/24 09:00 04/25/24 08:19 Metoprolol Succ 25mg Ext Rel Tab PO 05/25/24 08:59 Not Given DAILY JANET Sucralfate 1 gm 04/24/24 18:00 04/25/24 13:45 Sucralfate 1 Gm/10 Ml Udc PO 05/24/24 17:59 Not Given QID JANET Sumatriptan Succinate 100 mg 04/24/24 01:13 04/24/24 01:50 Sumatriptan Succinate 100 Mg Tab PO 05/24/24 01:12 100 mg BID PRN Administration Migraine Headache Past Anesthesia History No Hx of Anesthesia Complications and No Family Hx of Anesthesia Complications History of PONV No Hx of PONV and No Hx of Motion Sickness NPO Date Last Intake of Fluids: 04/25/24 Time Last Intake of Fluids: 09:12 Date Last Intake of Solids: 04/24/24 Time Last Intake of Solids: 12:00 Home Medications Home Medications Medication Instructions Recorded Confirmed Last Taken sumatriptan succinate 100 mg tablet 100 mg PO UD PRN Migraine Headache 03/16/21 04/23/24 03/20/21 Flutter Valve #1 ea 11/15/23 11/15/23 Unknown guaifenesin 600 mg tablet, 600 mg PO BID PRN congestion #60 11/15/23 04/23/24 Unknown extended release 12 hr (Mucinex) tabs metoprolol succinate 100 mg 50 mg (1/2 x 100 mg) PO DAILY #0 02/11/24 04/23/24 03/20/21 tablet,extended release 24 hr tabs pantoprazole 40 mg tablet,delayed 40 mg PO BID #60 tabs 03/02/24 04/23/24 Unknown release fluticasone furoate 100 1 inh inhalation DAILY 04/23/24 04/23/24 Unknown mcg-vilanterol 25 mcg/dose inhalation powder (Breo Ellipta) Active Medications Generic Name Dose Route Start Last Admin Trade Name Freq PRN Reason Stop Dose Admin Acetaminophen 650 mg 04/24/24 01:13 04/24/24 20:23 Acetaminophen 325 Mg Tab PO 05/24/24 01:12 650 mg Q4H PRN Administration Pain or Fever Fluticasone/Vilanterol 1 puffs 04/24/24 09:00 04/25/24 09:12 Fluticasone/Vilanterol 100/25mcg 14 Puffs/Inhaler INH 05/24/24 08:59 1 puffs DAILY JANET Administration Heparin Sodium (Porcine) 5,000 units 04/24/24 09:00 04/25/24 08:14 Heparin Sod 5,000 Unit/0.5 Ml Vial SQ 05/24/24 08:59 Not Given Q12 JANET Ceftriaxone Sodium 2,000 mg in 50 mls @ 100 mls/hr 04/24/24 01:13 04/25/24 02:00 Rocephin IV 04/29/24 01:12 Infused Q24H JANET Infusion Pantoprazole Sodium 40 mg/ 100 mls @ 20 mls/hr 04/24/24 11:30 04/25/24 12:20 Dextrose IV 05/24/24 11:29 8 mg/hr Q5H JANET 20 mls/hr Administration 8 MG/HR Metoprolol Succinate 75 mg 04/25/24 09:00 04/25/24 08:19 Metoprolol Succ 25mg Ext Rel Tab PO 05/25/24 08:59 Not Given DAILY JANET Sucralfate 1 gm 04/24/24 18:00 04/25/24 13:45 Sucralfate 1 Gm/10 Ml Udc PO 05/24/24 17:59 Not Given QID [facility] Sumatriptan Succinate 100 mg 04/24/24 01:13 04/24/24 01:50 Sumatriptan Succinate 100 Mg Tab PO 05/24/24 01:12 100 mg BID PRN Administration Migraine Headache Exercise / Class Metabolic Activity Metabolic Activity: III < 4 Walking/Shop/Light housework Physical Exam Constitutional: + cachectic; no acute distress Mouth: + dentition abnormality, + edentulous and + small oral opening Thyromental Distance: > or= 3.5 Finger Breadths Mallampati Class: III Neck: + visual inspection normal Respiratory: + respiratory effort normal and + clear to auscultation bilaterally; no respiratory distress Cardiovascular: + regular rate and + regular rhythm; no murmur Musculoskeletal: no limited cervical ROM Psychiatric: + alert and + oriented x 3 ASA ASA3E Proposed Anesthesia Proposed Anesthesia: General Risk / Benefits Reviewed With: PT / POA / Parent / Guardian, Accepts Plan and Informed Consent Obtained Additional Comments: Pt is a full stomach. We will do a rapid sequnce induction of general anesthesia to minimize aspiration risk.
--- NOTE | 2024-04-25 15:04 | Communication Note ---
Date of Service: April 25, 2024 EGD Multiple esophageal strictures, stricture distal esophagus precluded advancement of the endoscope. Required dilatation with a 10 mm balloon. Typical balloon dilatations the 20. Post dilation a 10 mm wheal was advanced into the stomach. There is a 3 x 3 cm cratered ulcer in the body of the stomach. There are some retained vegetable material in the fundus and body the stomach. There is obstruction at the level of the pylorus. There is a double pyloric channel sign here. Related to penetrating ulcer and then the normal duodenal channel. The ulcer cavity and duodenal were full of veg material precluding safe advancement of the scope. Using biopsy forceps we removed multiple pieces of vegan material out visualization. The appearance is of chronic peptic ulcer disease. Scope could not be advanced to second part of duodenum related to narrowing and retained food material multiple biopsies done of ulcer edge and of the isthmus between the 2 channels. Probable benign disease. Await biopsies. The appearance of the esophagus stomach and pylorus suggest a chronic obstruction. This fits with imaging studies from February. At 73 patient probably best served by a gastrojejunostomy though we will await surgical opinion in this regard.
--- NOTE | 2024-04-25 15:22 | GI REPORT ---
[facility] Patient: ZACH FLOOD : 1950 Sex at : Female Age: 73 Years Procedure: Upper GI endoscopy Date: 04/25/2024 Attending Physician: Elvis Nieves MD Referring MD: Ian Fernández Indications: - Gastric outlet obstruction Medications: - General Anesthesia - See the Anesthesia note for documentation of the administered medications Complications: - No immediate complications. Estimated Blood Loss: - Estimated blood loss was minimal. Procedure: - The egd scope was introduced through the mouth and advanced to the pylorus. - The upper GI endoscopy was performed with difficulty due to abnormal anatomy. - The patient tolerated the procedure well. Findings: - Multiple benign-appearing, intrinsic severe stenoses were found at the gastroesophageal junction. The narrowest stenosis measured 9 mm (inner diameter). The stenoses were traversed after dilation. A TTS dilator was passed through the scope. Dilation with a 10-11-12 mm x 8 cm wst.[employer] Rapide balloon (to a maximum balloon size of 10 mm) dilator was performed. The dilation site was examined and showed mild mucosal disruption. Estimated blood loss was minimal. - Stomach had old vegetable debris throughout the fundus and body of the stomach. Stomach was grossly longitudinally enlarged. There was a fairly large deep cratered ulcer in the body of the stomach. Some dark pigmented material at the base though no visible vessels. 5-6 biopsies performed of the rolling edge of the ulcer. - In the prepyloric area. There was retained veg material obscuring the pylorus. This required removal. With removal that there was a double pylorus sign. Which I believe was a cratered ulcer and then the subsequent negative channel. Both of these were significantly narrowed and somewhat obscured by inflammatory tissue and retained vision material precluding safe advancement of the scope. Multiple biopsies were done of the rolling edges of the ulceration and the isthmus between the 2 channels and submitted for histology. Impression: - Stomach had old vegetable debris throughout the fundus and body of the stomach. Stomach was grossly longitudinally enlarged. There was a fairly large deep cratered ulcer in the body of the stomach. Some dark pigmented material at the base though no visible vessels. 5-6 biopsies performed of the rolling edge of the ulcer. - In the prepyloric area. There was retained veg material obscuring the pylorus. This required removal. With removal that there was a double pylorus sign. Which I believe was a cratered ulcer and then the subsequent negative channel. Both of these were significantly narrowed and somewhat obscured by inflammatory tissue and retained vision material precluding safe advancement of the scope. Multiple biopsies were done of the rolling edges of the ulceration and the isthmus between the 2 channels and submitted for histology. - Benign-appearing esophageal stenoses. Dilated with a 10-11-12 mm x 8 cm Micro-Tech Rapide balloon (to a maximum balloon size of 10 mm). - No specimens collected. Recommendation: - Await pathology results. - The esophageal and large stomach and chronic changes of the pylorus suggest this is peptic ulcer disease and not neoplasia. Await biopsies. The ulcer in the body of the stomach again probably benign and peptic in nature though the location is a little atypical await histology. The pyloric channel duodenal anatomy is not amenable to an endoscopic management. I believe this patient will require a gastrojejunostomy. - Liquid diet only. Await pathology report Procedure Code(s): - 40621-13, Esophagogastroduodenoscopy, flexible, transoral; with transendoscopic balloon dilation of esophagus (less than 30 mm diameter) Diagnosis Code(s): - K22.2, Esophageal obstruction CPT(R) - 2022 copyright [employer]. All Rights Reserved. The CPT codes, CCI edits and ICD codes generated are intended as suggestions and were generated based on input data. These codes are preliminary and upon electronic die maker review may be revised to meet current compliance and payer requirements. The provider is responsible for the final determination of appropriate codes, and modifiers. Elvis Nieves MD This document has been electronically signed. Note Initiated:04/25/2024 Note Completed:04/25/2024 3:20 PM [id number]
--- NOTE | 2024-04-25 15:34 | Anesthesiology Progress Note ---
Date of Service April 25, 2024 Anesthesia Post Procedure Vital Signs Vital Signs: Temp Pulse Pulse Pulse Resp BP BP 04/25/24 15:30 36.5 C 64 17 113/65 04/25/24 15:20 64 15 96/62 L 04/25/24 15:10 62 13 108/61 04/25/24 15:04 36.1 C L 61 14 115/66 04/25/24 14:00 58 L 04/25/24 13:51 37 C 59 L 16 101/62 04/25/24 12:17 36.6 C 57 L 16 91/59 L 04/25/24 07:57 36.5 C 56 L 16 103/63 04/25/24 07:06 54 L 04/25/24 04:01 36.6 C 72 16 129/68 04/24/24 23:10 36.5 C 74 18 135/69 04/24/24 21:47 66 04/24/24 19:29 36.7 C 79 18 139/79 Pulse Ox O2 Del Method O2 Flow Rate 04/25/24 15:30 100 Room Air 04/25/24 15:20 96 Room Air 04/25/24 15:10 99 Oxymask 4 04/25/24 15:04 100 Oxymask 4 04/25/24 14:00 04/25/24 13:51 99 Room Air 04/25/24 12:17 100 Room Air 04/25/24 07:57 99 Room Air 04/25/24 07:06 04/25/24 04:01 96 Room Air 04/24/24 23:10 94 Room Air 04/24/24 21:47 04/24/24 19:29 93 Room Air Pain Intensity Abdomen: Pain Intensity: 5 Transfer of Care Handoff Completed per policy Notes Mental Status: alert / awake / arousable and participated in evaluation Patient Amnestic to Procedure: Yes Nausea / Vomiting: adequately controlled Pain: adequately controlled Airway Patency, RR, SpO2: stable & adequate BP & HR: stable & adequate Hydration State: stable & adequate Anesthetic Complications: no major complications apparent
[2024-04-25] MEDS: D5W AND NSS 1,000 ML IV SCH (16:05)
[2024-04-26 07:48] LABS: Basophils # (auto) 0.02 K/uL (0.00-0.20); Basophils % (auto) 0.5 %; Eosinophils % (auto) 4.6 %; Hematocrit (blood only) 32.2 % (37.0-47.0); Hemoglobin 10.5 g/dl (12.0-16.0); Immature Granulocytes # (auto) 0.02 K/uL (0.01-0.20); Immature Granulocytes % (auto) 0.5 %; Lymphocytes # (auto) 0.72 K/uL (1.20-3.40); Lymphocytes % (auto) 16.7 %; Mean Corpuscular Hemoglobin 32.7 pg (25.0-34.0); Mean Corpuscular Hgb Conc 32.6 g/dL (32.0-36.0); Mean Corpuscular Volume 100.3 fL (80.0-100.0); Mean Platelet Volume 9.7 fL (9.4-12.4); Monocytes # (auto) 0.46 K/uL (0.11-0.59); Monocytes % (auto) 10.7 %; Neutrophils # (auto) 2.89 K/uL (1.40-6.50); Platelet Count 239 K/uL (130-400); RDW Coefficient of Variation 13.2 % (11.5-14.5); Red Blood Count 3.21 M/uL (4.20-5.40); White Blood Count 4.31 K/ul (4.8-10.8)
--- NOTE | 2024-04-26 07:53 | Hospitalist Progress Note ---
Date of Service April 26, 2024 Assessment & Plan (1) Peptic ulcer disease: Plan: 73-year-old female with a past medical history including thiamine deficiency, peptic ulcer disease, gastritis, adnexal mass, metabolic encephalopathy, migraines, asthma-COPD overlap syndrome, pulm hypertension, dysphagia, and food impaction of esophagus presented for concerns w/ UTI and intermittent abdominal and pelvic discomfort with family concerns for decreased PO intake/inability to gain weight and worsening issues with swallowing/feeling food being stuck recently. Also found to have elevated troponin on admission, suspected 2nd to demand ischemia from malnourishment/possible underlying GI bleed given hx severe PUD/gastritis CTAP w/ oral and IV contrast noting findings suggesting ulcer at the distal antrum of the stomach with gastric outlet obstruction. High density material in the stomach likely represents retained barium. Underlying gastric hemorrhage is not excluded. GI consulted, surgery consulted s/p EGD 04/[address] Nieves --> EGD w/ dilatation, noted cratered ulceration in gastric antrum, unable to pass scope. Per GI, rec for gastrojejunotomy/bypass surgery possible. Discussed w/ surgery 04/25 and this morning below Protinix gtt continued for now, plan to convert to IV BID vs PO BID in AM pending GI recs Carafate continued IVF for now, can dc at lunch as tolerating clears Discussed w/ Dr Campos given not adequately treated and does not feel need to trasnfer at this time but monitor path for malingnancy/oncology and tx if occurs but thinks will be able to manage conversatively/open up w/ current treatment and believes needs carafate 2-3 months and protonix BID INDEFINITELY. Hgb 10.5 and stable on fluids which will be stopped Possible full liquids in AM pending eval Nutrition consulted/supplements with meals Updated son this AM, coming from [place]. PT/OT consults pending. Possible dc this Tuesday w/ son pending course/therapy evals. Notable home w/ son w/ mental health but denies safety issues at present, son reports has been longstanding issue but mother/patient has wanted to kick out in the past but hasn't been able. CM to follow if any issues. Monitor labs/blood counts, exam in AM (2) Acute UTI: Plan: Concerns for such given lower abdominal pain/pelvic pain and presenting sx +UA, cx w/ pansensitive ecoli and on Ceftriaxone IV 2gm daily and can convert to PO in AM vs complete w/ 3 days IV rocephin given no ascending infection/abn no CTAP above (3) Gastritis: Plan: As above, will need lifelong PPI BID and continues on carafate and plans for 2-3 month course (4) Severe protein-calorie malnutrition: Plan: BMI 13.6, nutrition consulted Her son reported that he has been having her take nutritional supplements on a regular basis. History of severe PUD/gastritis as well as food impaction CTAP from 02/24/2024 with significant peptic ulcer disease and gastritis -- repeat as above and plan as outlined. Speech consulted as well, can f/u once tx above #Generalized weakness/deconditioning multifactorial suspected, UTI/malnutrition. plan as above and PT/OT consulted (5) Elevated troponin: Plan: suspect 2nd to demand ischemia from infection/dehydration/PUD above as well as dehydration Did peak and suspect 2nd to duodenal ulcer/malnutrition and pain ECHO noting mild mitral valve prolapse, moderate MR, moderate TR, RVSP 30-40mmhg Cardiology consulted, Dr Foley given hx Dovn Ac Zarateine -- see note, was provided additional 25mg metoprolol and increased to 75mg PO daily (held AM 04/25 for HR 50s) but was given today/monitor Continues on tele for now, downgrade in AM if no issues w/ above No CP reported, improvement in breathing w/ tx above Plan Dispo: continued inpatient stay on protonix gtt and plan to convert to IV BID vs PO BID in AM but needs lifelong, carafate continued 2-3mo planned. Clear liquid for today but plan to advance in AM if no issues given GOO F/u pathology to ensure no malignancy Nutrition consulted/following Convert abx for UTI in AM pending PO tolerance Updated son 04/26, coming from [place] this weekend Therapy evals to be undertaken as well as speech in AM likely w/ advancement in diet. Remain aspiration precautions Notable Heparin SQ BID ordered for dvt proph but has been DISCONTINUED/would avoid chemoproph given #1. Can continue SCDs (in place on exam) Admission and Anticipated Discharge Date Admission Date: April 23, 2024 Supervising Physician Co-Signing Physician Notes The patient was not seen by me. The chart was reviewed. Case discussed with ELAN Morris. Agree with assessment and plan Subjective Eval this morning, feeling better. Tolerating clear liquids, reports "whatever giving me cleared up my breathing/coughing issues too". Discussed protonix gtt, possible conversion to IV BID this evening and if continues to tolerate PO can convert to PO BID tomorrow. Discussed I spoke w/ surgery this morning and can continue PPI BID indefinitely/carafate 2-3 months and hopefully open up and suspected not adequately treated previously but could change plan pending pathology but she is thankful for medication management at this time. Son lives w/ her, mental health, son Viet coming from [facility] as discussed and she wants other son to get some help/lies, reports feels safe "at this time". BUt discussed to alert if any concerns. Plan to call Viet again with update this afternoon. Thankful for news to be able to stay/no surgery AT this time. Questions/concerns addressed at this time. Physical Exam 2 Physical Exam: General: 73yo frail/thin/malnourished female sitting up in bed, NAD, reports feeling better than admission/less cough/SOB, 96% on ROOM AIR, no abdominal pain/tenderness today HEENT: head atraumatic, normocephalic, mm IMPROVED, trachea midline Resp: even/unlabored, no wheezing/rales, on room air CV: RRR, faint systolic murmur, no pitting edema/calf tenderness, pulses present GI: +BS, slight distension, +LESS tenderness/none reported today, no rebound/guarding no steinberg MSK/Neuro: following commands, no slurred speech, not confused Psych: AOx3, cooperative, anxious at times, support provided Results & Data Results & Data Vital Signs (Past 12 Hours) Vital Signs Temp Pulse Pulse Pulse Resp BP BP 04/26/24 07:17 36.5 C 66 16 102/66 04/26/24 07:17 61 04/26/24 03:37 36.7 C 63 16 91/59 L 04/25/24 21:55 68 04/25/24 21:50 36.7 C 67 18 102/61 Pulse Ox O2 Del Method 04/26/24 07:17 95 Room Air 04/26/24 07:17 04/26/24 03:37 100 Room Air 04/25/24 21:55 04/25/24 21:50 99 Room Air Laboratory Results 04/26/24 06:46 04/26/24 06:46 PG Care Time/CCT Total # of Minutes Spent Total Time Spent with Patient: Total time spent is greater than 50% in coordination of care (as documented) at patient's floor/unit and/or counseling patient: Coding Level of Care Code 54206 SUB INP/OBS CARE 3/50MIN Diagnoses Peptic ulcer disease K27.9 Acute UTI N39.0 Gastritis K29.70 Severe protein-calorie malnutrition E43 Elevated troponin R79.89
[2024-04-26 08:05] LABS: BUN Creatinine Ratio 16.9 (10-20); Calcium 8.1 mg/dl (8.6-10.3); Magnesium 1.9 mg/dl (1.7-2.4); Potassium 3.6 mmol/L (3.5-5.1)
--- NOTE | 2024-04-26 09:45 | Gastroenterology Progress Note ---
Date of Service April 26, 2024 Assessment & Plan (1) Peptic ulcer disease: Plan: 73 year old female w/ history of thiamine deficiency, peptic ulcer disease, gastritis, adnexal mass, metabolic encephalopathy, migraines, asthma-COPD overlap syndrome, pulm hypertension, dysphagia admitted w/ UTI - GI asked to evaluate for ongoing gastrointestinal concerns regarding food aversions, weight loss, nausea and dysphagia. Last CT in 2023 showed gastritis vs PUD CT w/ ulcer at the distal antrum of the stomach with gastric outlet obstruction. Plan for EGD in the OR today for evaluation. Pending evaluation, she may benefit from a gastrojejunostomy if process is not amendable to balloon dilatation EGD w/ esophageal stricture, pyloric obstruction and ulcer disease. Recommend transfer for evaluation of. gastrojejunostomy. Clear liquids only. Continue IV PPI. GI to sign off. Thank you for allowing us to participate in the care of this patient. Please call with any acute changes, questions or concerns. Please see addendum below with additional recommendation from my supervising physician. Admission and Anticipated Discharge Date Admission Date: April 23, 2024 Supervising Physician Co-Signing Physician Notes Reviewed notes. Reviewed with patient's findings yesterday. This patient has chronic peptic ulcer disease with significant scarring and narrowing of the duodenum. Even with healing of the ulcer the scarring will not resolve. I think it is unlikely that this patient will be able to forego a gastrojejunostomy. Both based on the severity of the scarring and the fact the patient is only 66 pounds at present time and is not on our side in regards to her nutrition. This obstruction has been present dating back at least in February. If a plan would be for watch and wait I think she will need some sort of alternative feeding method PEG would not solve the issue. Biopsies pending to exclude malignancy. Subjective Pt was seen and evaluated, chart reviewed. Discussed EGD results and recommendations for transfer. She is agreeable but has concerns about logistics (son from out of area is coming to visit her) EGD 2024: Stomach had old vegetable debris throughout the fundus and body of the stomach. Stomach was grossly longitudinally enlarged. There was a fairly large deep cratered ulcer in the body of the stomach. Some dark pigmented material at the base though no visible vessels. 5-6 biopsies performed of the rolling edge of the ulcer. - In the prepyloric area. There was retained veg material obscuring the pylorus. This required removal. With removal that there was a double pylorus sign. Which I believe was a cratered ulcer and then the subsequent negative channel. Both of these were significantly narrowed and somewhat obscured by inflammatory tissue and retained vision material precluding safe advancement of the scope. Multiple biopsies were done of the rolling edges of the ulceration and the isthmus between the 2 channels and submitted for histology. - Benign-appearing esophageal stenoses. Dilated with a 10-11-12 mm x 8 cm Micro[employer]Tech Rapide balloon (to a maximum balloon size of 10 mm). Review of Systems Review of Systems: All other findings negative except as noted in HPI. Physical Exam Constitutional: Thin, frail in no acute distress sitting in bed eating a liquid diet Respiratory: normal respiratory effort, lungs clear to auscultation Cardiovascular: Rate/Rhythm: regular rate and regular rhythm Skin: no rashes, warm and dry Results & Data Results & Data Vital Signs (Past 12 Hours) Vital Signs Temp Pulse Pulse Pulse Resp BP BP 04/26/24 07:17 97.7 F 66 16 102/66 04/26/24 07:17 61 04/26/24 03:37 98.1 F 63 16 91/59 L 04/25/24 21:55 68 04/25/24 21:50 98.1 F 67 18 102/61 Pulse Ox O2 Del Method 04/26/24 07:17 95 Room Air 04/26/24 07:17 04/26/24 03:37 100 Room Air 04/25/24 21:55 04/25/24 21:50 99 Room Air Laboratory Results 04/26/24 04/25/24 Range/Units 06:46 09:19 WBC 4.31 L (4.8-10.8) K/ul RBC 3.21 L (4.20-5.40) M/uL Hgb 10.5 L (12.0-16.0) g/dl Hct 32.2 L (37.0-47.0) % MCV 100.3 H (80.0-100.0) fL MCH 32.7 (25.0-34.0) pg MCHC 32.6 (32.0-36.0) g/dL RDW Std Deviation 49.0 H (36.4-46.3) fL RDW Coeff of Michael 13.2 (11.5-14.5) % Plt Count 239 (130-400) K/uL MPV 9.7 (9.4-12.4) fL Immature Gran % (Auto) 0.5 % Neut % (Auto) 67.0 % Lymph % (Auto) 16.7 % [place] % (Auto) 10.7 % Eos % (Auto) 4.6 % Baso % (Auto) 0.5 % Neut # (Auto) 2.89 (1.40-6.50) K/uL Lymph # (Auto) 0.72 L (1.20-3.40) K/uL [place] # (Auto) 0.46 (0.11-0.59) K/uL Eos # (Auto) 0.20 (0.00-0.50) K/uL Baso # (Auto) 0.02 (0.00-0.20) K/uL Immature Gran # (Auto) 0.02 (0.01-0.20) K/uL Sodium 135 L 133 L (136-145) mmol/L Potassium 3.6 4.1 (3.5-5.1) mmol/L Chloride 106 104 (98-107) mmol/L Carbon Dioxide 25 26 (21-32) mmol/L Anion Gap 4 3 (3-11) BUN 15 13 (6-23) mg/dl Creatinine 0.89 0.93 (0.6-1.2) mg/dl Est Cr Clr Drug Dosing 29.0 26.9 ml/min eGFR 67.57 64.10 BUN/Creatinine Ratio 16.9 14.0 (10-20) Glucose 83 81 (70-99(Fasting)) mg/dl Calcium 8.1 L 8.3 L (8.6-10.3) mg/dl Magnesium 1.9 1.9 (1.7-2.4) mg/dl Folate > 22.30 (>5.38) ng/ml PG Care Time/CCT Total # of Minutes Spent Total Time Spent with Patient: Total time spent is greater than 50% in coordination of care (as documented) at patient's floor/unit and/or counseling patient: Coding Level of Care Code 13286 SUB INP/OBS CARE 04/28MIN Diagnoses Peptic ulcer disease K27.9
[2024-04-26] MEDS: POTASSIUM CHLORIDE 20 MEQ/15 ML UDC PO STA (09:53)
--- NOTE | 2024-04-26 10:33 | Cardiology Progress Note ---
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 Cont low dose BB keep HR 50-60 resting for LGL. Follow for now. Admission and Anticipated Discharge Date Admission Date: April 23, 2024 Subjective Patient seen briefly prior to EGD. Await results of the tests. Beta kathryn held this am due to relative sohail. Will awiat eval after EGD to determine if she should get. Review of Systems Review of Systems: All systems reviewed & are unremarkable except as noted in HPI & below Physical Exam Physical Exam: appears, very thin in NAD Cardiovascular: Rate/Rhythm: regular rate and regular rhythm Heart Sounds: normal S1 and normal S2 Results & Data Vital Signs (Past 12 Hours) Vital Signs Temp Pulse Pulse Pulse Resp BP BP 04/26/24 07:17 36.5 C 66 16 102/66 04/26/24 07:17 61 04/26/24 03:37 36.7 C 63 16 91/59 L Pulse Ox O2 Del Method 04/26/24 07:17 95 Room Air 04/26/24 07:17 04/26/24 03:37 100 Room Air
--- NOTE | 2024-04-26 11:54 | Surgery Progress Note ---
Date of Service April 26, 2024 Assessment & Plan (1) Gastric outlet obstruction: Plan 73F with significant PMHx as listed below presents with eating disturbance and now has CT evidence for GOO. Etiology currently unknown. The patient has been HD stable, without fevers or abdominal pain. H/H stable. GI and surgical consultations requested. GI performed EGD 04/25/24 with biopsies. No acute surgical intervention at this time, GI endoscopic biopsies pending. Further surgical plan pending biopsy results. PPD 1 EGD with GI identified benign appearing strictures EG junction. Ulceration at the body of the stomach. obstructing inflammatory mass at the pylorus likely ulcer creating inability to traverse the pylorus to examine the duodenum. Biopsies of all areas pending. Full ulcer treatment has been initiated in the form of Carafate and PPI. May continue whatever diet the patient tolerates while ulcer treatment is underway. If biopsies prove this is just ulcer and not malignancy, the area should respond to ulcer treatment and begin to resolve to improve the level of oral intake she can tolerate. If on the other hand this is malignancy, may need to consider transfer. F/U biopsies from EGD for definitive plan Admission and Anticipated Discharge Date Admission Date: April 23, 2024 Subjective Pt seen this am. States she feels well without pain N/V and is able to tolerate liquids. Physical Exam Constitutional: + thin; not in distress and not diaphore tic Respiratory: normal respiratory effort; no respiratory distress, no labored breathing and does not use accessory muscles Gastrointestinal (Abdomen): Percussion/Palpation: abdomen soft; abdomen nontender Results & Data Vital Signs (Past 12 Hours) Vital Signs Temp Pulse Pulse Pulse Resp BP BP 04/26/24 10:47 36.6 C 76 16 99/62 L 04/26/24 07:17 36.5 C 66 16 102/66 04/26/24 07:17 61 04/26/24 03:37 36.7 C 63 16 91/59 L Pulse Ox O2 Del Method 04/26/24 10:47 96 Room Air 04/26/24 07:17 95 Room Air 04/26/24 07:17 04/26/24 03:37 100 Room Air PG Care Time/CCT Total # of Minutes Spent Total Time Spent with Patient: Total time spent is greater than 50% in coordination of care (as documented) at patient's floor/unit and/or counseling patient: Coding Level of Care Code 07027 SUB INP/OBS CARE Diagnoses Gastric outlet obstruction K31.1
[2024-04-26] MEDS ORDERED: PANTOprazole 40 MG in DEXTROSE 5% 100 ML IV SCH (13:30)
--- NOTE | 2024-04-27 07:36 | Hospitalist Progress Note ---
Date of Service April 27, 2024 Assessment & Plan (1) Peptic ulcer disease: Plan: 73-year-old female with a past medical history including thiamine deficiency, peptic ulcer disease, gastritis, adnexal mass, metabolic encephalopathy, migraines, asthma-COPD overlap syndrome, pulm hypertension, dysphagia, and food impaction of esophagus presented for concerns w/ UTI and intermittent abdominal and pelvic discomfort with family concerns for decreased PO intake/inability to gain weight and worsening issues with swallowing/feeling food being stuck recently. Also found to have elevated troponin on admission, suspected 2nd to demand ischemia from malnourishment/possible underlying GI bleed given hx severe PUD/gastritis CTAP w/ oral and IV contrast noting findings suggesting ulcer at the distal antrum of the stomach with gastric outlet obstruction. High density material in the stomach likely represents retained barium. Underlying gastric hemorrhage is not excluded. GI , surgery consulted s/p EGD 04/[address] Nieves --> EGD w/ dilatation, noted cratered ulceration in gastric antrum, unable to pass scope. Per GI, rec for gastrojejunotomy/bypass surgery possible Pathology NEGATIVE for malignancy or H. pylori Discussed w/ surgery, see note 04/26, ok to remain inpatient. Clears --> FULL LIQUID for today, supplements w/ meals. Moving her bowels. No vomiting. Protonix gtt --> IV BID for AM 04/27. Convert to PO BID in AM if continues to tolerate PO. Plans for INDEFINITE at dc Carafate continued, plan 2-3 month course WBC improved, hgb [id number] and heparin sq dc'd prior given EGD/concerns.SCDs in place PT/OT consults pending, updated son AM 04/26 and will be here tomorrow. (2) Acute UTI: Plan: +UA/cx pansensitive ecoli. Ceftriaxone 2gm IV daily(received 4 doses as of 04/27) and can complete course after tonights dose. monitor for diarrhea/cdiff testing if occurs as on protonix as above (3) Gastritis: Plan: Plans for lifelong PPI BID w/ carafate 2-3 months as above (4) Severe protein-calorie malnutrition: Plan: BMI 13.6, nutrition consulted/ Her son reported that he has been having her take nutritional supplements on a regular basis. History of severe PUD/gastritis as well as food impaction, see above CTAP from 02/24/2024 with significant peptic ulcer disease and gastritis -- repeat as above and plan as outlined. Speech consulted as well, tolerating diet. Aspiration precautions Continues supplements w/ meals and should have continued weight checks #Generalized weakness/deconditioning multifactorial suspected, UTI/malnutrition. plan as above and PT/OT consulted/pending now that improved and will need f/u. Appears improving w/ tx above and diet has been advanced (5) Elevated troponin: Plan: suspect 2nd to demand ischemia from infection/dehydration/PUD above as well as dehydration Did peak and suspect 2nd to duodenal ulcer/malnutrition and pain ECHO noting mild mitral valve prolapse, moderate MR, moderate TR, RVSP 30-40mmhg Cardiology consulted, Dr Foley given hx Dovn Ac Zarateine -- metoprolol increased to 75mg daily from 50mg SANIPRACTIC PHYSICIAN. --Only had brief run PAT on monitor but no concerning ectopy. Continues on metoprolol at current dosing 75mg and will plan to continue at dc Can dc tele tomorrow if no further episodes PAT, will provide 1gm IV mag given PPI use and level 1.8 to keep closer to 2 Plan Dispo: continued inpatient stay and converted to PPI IV BID for today w/ plans for PO BID in AM. Diet advanced to full liquid diet/continue supplements. Monitor weights. PT/OT consults pending, son updated yesterday and to be here tomorrow DVT Proph: continue SCDs, no heparin/lovenox given above Admission and Anticipated Discharge Date Admission Date: April 23, 2024 Supervising Physician Co-Signing Physician Notes The patient was not seen by me. The chart was reviewed. Case discussed with ELAN Morris. Agree with assessment and plan Subjective Eval this morning around lunch, waiting for her carafate before eating, aide to get RN to provide. Has been advanced to full liquid diet for lunch, moving bowels this morning and no emesis. protonix converted to IV BID for now, transition to PO in am. Discussed surgery following and plan to manage conservatively, pathology reviewed NEGATTIVE for malignancy and no need for transfer at this time. Discussed continue full liquid/supplements for now as was only on liquids before for several months due to issues but can consider MAYBE adv to low fiber pending course but important to continue supplements for now. Son updated yesterday AM, will be here tomorrow. Discussed possible dc either the weekend vs Tuesday pending course. Questions/concerns addressed at this time. Notable she did report was scared when GI told her had to transfer for surgery last night, reassurance provided. She was overly thankfully for care being provided. Physical Exam 2 Physical Exam: General: 73yo frail/thin/malnourished female sitting up in bed, appears IMPROVED, reports feeling better (outside of being scared by GI last evening reported), NAD, about to eat full liquid lunch/wanting her carafate (aide to alert nursing to obtain/provide) HEENT: head atraumatic, mm improved/remaining stable OFF IVF, trachea midline Resp: even/unlabored, no cough, no wheezing/rales, 98% on RA CV: RRR, +systolic murmur, no pitting edema/calf tenderness GI: +BS, soft/NT no steinberg MSK/Neuro: generalized weakness improving, following commands, nonfocal Psych: AOx3, cooperative, anxious at times/reassurance provided, thankful for care being provided Results & Data Results & Data Vital Signs (Past 12 Hours) Vital Signs Temp Pulse Pulse Resp BP Pulse Ox O2 Del Method 04/27/24 03:42 36.4 C L 61 18 125/73 94 Room Air 04/26/24 22:48 36.6 C 67 18 108/59 L 100 Room Air 04/26/24 21:52 65 04/26/24 19:40 36.5 C 72 16 120/67 94 Room Air Laboratory Results 04/27/24 06:42 04/27/24 06:42 Mag 1.8 PG Care Time/CCT Total # of Minutes Spent Total Time Spent with Patient: Total time spent is greater than 50% in coordination of care (as documented) at patient's floor/unit and/or counseling patient: Coding Level of Care Code 19396 SUB INP/OBS CARE 3/50MIN Diagnoses Peptic ulcer disease K27.9 Acute UTI N39.0 Gastritis K29.70 Severe protein-calorie malnutrition E43 Elevated troponin R79.89
[2024-04-27 07:43] LABS: Basophils # (auto) 0.02 K/uL (0.00-0.20); Basophils % (auto) 0.4 %; Eosinophils % (auto) 4.3 %; Hematocrit (blood only) 33.3 % (37.0-47.0); Hemoglobin 10.9 g/dl (12.0-16.0); Immature Granulocytes # (auto) 0.01 K/uL (0.01-0.20); Immature Granulocytes % (auto) 0.2 %; Lymphocytes % (auto) 17.4 %; Mean Corpuscular Hemoglobin 32.3 pg (25.0-34.0); Mean Corpuscular Hgb Conc 32.7 g/dL (32.0-36.0); Mean Corpuscular Volume 98.8 fL (80.0-100.0); Mean Platelet Volume 9.6 fL (9.4-12.4); Monocytes # (auto) 0.51 K/uL (0.11-0.59); Monocytes % (auto) 11.1 %; Neutrophils # (auto) 3.07 K/uL (1.40-6.50); Neutrophils % (auto) 66.6 %; Platelet Count 239 K/uL (130-400); RDW Coefficient of Variation 13.2 % (11.5-14.5); RDW Standard Deviation 47.3 fL (36.4-46.3); Red Blood Count 3.37 M/uL (4.20-5.40); White Blood Count 4.61 K/ul (4.8-10.8)
[2024-04-27 08:02] LABS: BUN Creatinine Ratio 23.7 (10-20); Calcium 8.1 mg/dl (8.6-10.3); Creatinine Clr Calc Pharmacy 34.6 ml/min; Magnesium 1.8 mg/dl (1.7-2.4); Potassium 3.7 mmol/L (3.5-5.1)
--- NOTE | 2024-04-27 08:47 | Cardiology Progress Note ---
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 Augustin is without concerning anginal symptoms. Her troponin trended down and was likely elevated due to demand ischemia in the setting of dehydration and blood loss. She is not on aspirin due to GI ulceration and acute blood loss. Her echo did not show any wall motion abnormalities, LVF is preserved. She does have moderate mitral valve regurgitation with mild prolapse which can be followed with an echo in another year. Her QTc was prolonged on her admitting EKG. 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 She has had only a brief run of PAT on the monitor but no concerning ectopy. Her heart rate is controlled. Her blood pressure is controlled. Cardiology will sign off, we can follow her in the office. Admission and Anticipated Discharge Date Admission Date: April 23, 2024 Subjective Ms. Augustin appears comfortable this morning. She denies chest pain or shortness of breath. No events on monitor, sinus rhythm with PACs. Review of Systems Review of Systems: All systems reviewed & are unremarkable except as noted in HPI & below Physical Exam Constitutional: + thin and + frail appearing Respiratory: normal respiratory effort, lungs clear to auscultation Cardiovascular: Rate/Rhythm: regular rate and regular rhythm Heart Sounds: normal S1 and normal S2 Extremities: no edema Neurologic: moves all extremities and awake Psychiatric: A+Ox3, euthymic affect Results & Data Vital Signs (Past 12 Hours) Vital Signs Temp Pulse Pulse Resp BP BP Pulse Ox 04/27/24 08:11 36.7 C 85 18 115/69 96 04/27/24 03:42 36.4 C L 61 18 125/73 94 04/26/24 22:48 36.6 C 67 18 108/59 L 100 04/26/24 21:52 65 O2 Del Method 04/27/24 08:11 Room Air 04/27/24 03:42 Room Air 04/26/24 22:48 Room Air 04/26/24 21:52
[2024-04-27] MEDS: PANTOprazole 40 MG/10 ML SYR IV SCH (09:42)
--- NOTE | 2024-04-27 11:05 | Surgery Progress Note ---
<Statement entered by Vlad aCmpos, - 04/27/24 11:44> So far she is doing well with clears. Will see how he fairs advancing to fulls as described in the plan above. [facility] [place]. Date of Service April 27, 2024 Assessment & Plan (1) Peptic ulcer disease: Plan: pt tolerating clear liquids no n/v having bms vss pathology report showing no concerns for malignancy on bx they recieved GI suspecting GOO given CT scan from this admission and prior along with peptic ulcer disease "with significant scarring and narrowing of the duodenum" Continue PPI may trial full liquids with protein supplement/ ensure Follow up with PCP outpatient for weight checks General surgery will sign off at this time call with questions/concerns pt seen and examined with Dr. Loretta Gerard covering the weekend Admission and Anticipated Discharge Date Admission Date: April 23, 2024 Subjective pt denies abd pain, n.v Review of Systems Constitutional: no fever and no chills Respiratory: no dyspnea Cardiovascular: no chest pain Gastrointestinal: no abdominal pain, no nausea and no vomiting Physical Exam Constitutional: + thin, cooperative and comfortable; no acute distress Respiratory: normal respiratory effort; no respiratory distress Gastrointestinal (Abdomen): Inspection/Auscultation: abdomen not distended Percussion/Palpation: + abdomen tender (epigastric ) and abdomen soft Results & Data Vital Signs (Past 12 Hours) Vital Signs Temp Pulse Pulse Resp BP BP Pulse Ox 04/27/24 09:06 53 L 04/27/24 08:11 98.1 F 85 18 115/69 96 04/27/24 03:42 97.5 F L 61 18 125/73 94 O2 Del Method 04/27/24 09:06 04/27/24 08:11 Room Air 04/27/24 03:42 Room Air PG Care Time/CCT Total # of Minutes Spent Total Time Spent with Patient: Total time spent is greater than 50% in coordination of care (as documented) at patient's floor/unit and/or counseling patient: Coding Level of Care Code 55098 SUB INP/OBS CARE 04/28MIN Diagnoses Peptic ulcer disease K27.9
[2024-04-27] MEDS: MAGNESIUM SULFATE / D5W 1 GM/100 ML BAG IV ONE (14:32)
[2024-04-27 15:33] LABS: Cdiff Toxin B Gene (2yr or >) Positive Cdiff Gene (Neg)
[2024-04-27 16:24] LABS: Cdiff Antigen Positive; Cdiff Toxin A+B Negative Cdiff Toxin (Negative)
[2024-04-28 06:45] LABS: Hematocrit (blood only) 30.8 % (37.0-47.0); Hemoglobin 10.3 g/dl (12.0-16.0); Mean Corpuscular Hemoglobin 32.3 pg (25.0-34.0); Mean Corpuscular Hgb Conc 33.4 g/dL (32.0-36.0); Mean Corpuscular Volume 96.6 fL (80.0-100.0); Mean Platelet Volume 9.5 fL (9.4-12.4); Platelet Count 223 K/uL (130-400); RDW Coefficient of Variation 13.1 % (11.5-14.5); RDW Standard Deviation 46.5 fL (36.4-46.3); Red Blood Count 3.19 M/uL (4.20-5.40); White Blood Count 4.82 K/ul (4.8-10.8)
[2024-04-28 07:02] LABS: BUN Creatinine Ratio 24.2 (10-20); Calcium 8.1 mg/dl (8.6-10.3); Creatinine Clr Calc Pharmacy 38.3 ml/min; Potassium 3.4 mmol/L (3.5-5.1)
[2024-04-28 07:20] LABS: Magnesium 2.1 mg/dl (1.7-2.4); Phosphorus 1.4 mg/dl (2.5-4.9)
[2024-04-28] MEDS ORDERED: POTASSIUM PHOS 3 MMOL/1 ML INFUSION IV STA (07:36)
--- NOTE | 2024-04-28 07:41 | Hospitalist Progress Note ---
Date of Service April 28, 2024 Assessment & Plan (1) Peptic ulcer disease: Plan: 73-year-old female with a past medical history including thiamine deficiency, peptic ulcer disease, gastritis, adnexal mass, metabolic encephalopathy, migraines, asthma-COPD overlap syndrome, pulm hypertension, dysphagia, and food impaction of esophagus presented for concerns w/ UTI and intermittent abdominal and pelvic discomfort with family concerns for decreased PO intake/inability to gain weight and worsening issues with swallowing/feeling food being stuck recently. Also found to have elevated troponin on admission, suspected 2nd to demand ischemia from malnourishment/possible underlying GI bleed given hx severe PUD/gastritis CTAP w/ oral and IV contrast noting findings suggesting ulcer at the distal antrum of the stomach with gastric outlet obstruction. High density material in the stomach likely represents retained barium. Underlying gastric hemorrhage is not excluded. GI , surgery consulted s/p EGD 04/[address] Nieves--> EGD w/ dilatation, noted cratered ulceration in gastric antrum, unable to pass scope. Per GI, rec for gastrojejunostomy/bypass surgery possible Pathology NEGATIVE for malignancy or H. pylori Surgery reviewed/ok to stay/no need to transfer for surgery PPI gtt --> IV BID on 04/27, now converting to PO BID. [place], monitor diarrhea (toxin neg, gene + but needs PPI for above - abx dc as completed course below/hopeful avoid) Remains on carafate, plan 2-3 months as prior discussed Clear liquid --> Full liquids on 04/27 and tolerating, ate two cream of wheat this morning. Continue supplements w/ meals, monitor nutrition status Phos checked/low 1.4 as prior, added 15mm KPHOS today and will monitor on repeat WBC normalized/afebrile DVT proph: SCDs continued, avoid any further chemoproph given EGD PT/OT consulted but has not been seen, placed repeat PT eval and asking to see today and sent message on [facility] to see about being seen today to make sure if any needs can be addressed prior to possible dc tomorrow. Updated son Viet AM 04/28, be here this morning from [place], hopeful can take mom home tomorrow. (2) Acute UTI: Plan: +UA/cx pansensitive ecoli. Ceftriaxone 2gm IV daily x 5 doses and will discontinue further monitor for any worsened diarrhea/repeat cdiff testing on protonix given +gene/neg toxin (3) Gastritis: Plan: Plans for lifelong PPI BID w/ carafate 2-3 months as above. Tolerating advancement of diet as outlined and moving bowels thankfully. Outpt f/u GI (4) Severe protein-calorie malnutrition: Plan: BMI 13.6, nutrition consulted/ Her son reported that he has been having her take nutritional supplements on a regular basis. History of severe PUD/gastritis as well as food impaction, see above CTAP from 02/24/2024 with significant peptic ulcer disease and gastritis -- repeat as above and plan as outlined. Speech consulted as well, tolerating diet. Aspiration precautions Continues supplements w/ meals and should have continued weight checks #Generalized weakness/deconditioning multifactorial suspected, UTI/malnutrition. plan as above and PT/OT consulted/pending now that improved and will need f/u. 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 Electrolyte replacement /Kphos as above. No CP -F/u cards at dc Plan Dispo: PPI converted to PO BID, abx discontinued for UTI. remains on carafate. Monitoring for diarrhea and PT/OT to see and hopefully can dc in AM pending therapy haley w/ HH services Family updated AM 04/28, touch base in AM prior to dc Admission and Anticipated Discharge Date Admission Date: April 23, 2024 Supervising Physician Co-Signing Physician Notes The patient was not seen by me. The chart was reviewed. Case discussed with ELAN Morris. Agree with assessment and plan Subjective Evaluated this morning, looks much better. Tolerating diet. Loose stool this morning but prior hard/katelyn, abx have been discontinued. Discussed convert PPI to PO BID, remains on Carafate. No abd pain/vomiting. Ate 2 cream of wheat this morning. Possible dc tomorrow, son to be updated this morning and will be here from [place] this morning. Physical Exam 2 Physical Exam: General: 73yo frail/thin/malnourished (IMPROVING) female sitting up in bed, appears IMPROVED, reports feeling well HEENT: head atraumatic, mm improved/remaining stable OFF IVF, trachea midline Resp: even/unlabored, no cough, no wheezing/rales, 99% on RA CV: RRR, +systolic murmur, no pitting edema/calf tenderness GI: +BS, soft/NT no steinberg MSK/Neuro: generalized weakness improving, following commands, nonfocal Psych: AOx3, cooperative, anxious at times/reassurance provided, thankful for care being provided Results & Data Results & Data Vital Signs (Past 12 Hours) Vital Signs Temp Pulse Pulse Resp BP Pulse Ox O2 Del Method 04/28/24 07:33 54 L 04/28/24 03:57 36.7 C 73 20 135/71 95 Room Air 04/27/24 23:23 36.6 C 75 18 149/92 H 94 Room Air 04/27/24 22:05 54 L 04/27/24 21:22 Room Air 04/27/24 19:50 36.4 C L 58 L 18 126/80 94 Room Air Laboratory Results 04/28/24 05:51 04/28/24 05:51 Phos 1.4 Mag 2.1 Cdiff positive GENE, toxin NEGATIVE PG Care Time/CCT Total # of Minutes Spent Total Time Spent with Patient: Total time spent is greater than 50% in coordination of care (as documented) at patient's floor/unit and/or counseling patient: Coding Level of Care Code 42634 SUB INP/OBS CARE 3/50MIN Diagnoses Peptic ulcer disease K27.9 Acute UTI N39.0 Gastritis K29.70 Severe protein-calorie malnutrition E43 Elevated troponin R79.89
[2024-04-28] MEDS: POTASSIUM PHOSPHATE 15 MMOL in SODIUM CHLORIDE 0.9% 250 ML IV ONE (10:04)
[2024-04-28] MEDS: PANTOprazole 40 MG TAB PO SCH (11:46)
[2024-04-29 07:10] LABS: Hematocrit (blood only) 29.8 % (37.0-47.0); Mean Corpuscular Hemoglobin 33.2 pg (25.0-34.0); Mean Corpuscular Hgb Conc 33.6 g/dL (32.0-36.0); Mean Platelet Volume 9.6 fL (9.4-12.4); Platelet Count 234 K/uL (130-400); RDW Coefficient of Variation 13.2 % (11.5-14.5); RDW Standard Deviation 47.7 fL (36.4-46.3); Red Blood Count 3.01 M/uL (4.20-5.40); White Blood Count 6.78 K/ul (4.8-10.8)
[2024-04-29 07:30] LABS: BUN Creatinine Ratio 29.4 (10-20); Calcium 8.3 mg/dl (8.6-10.3); Creatinine Clr Calc Pharmacy 38.4 ml/min; Potassium 3.4 mmol/L (3.5-5.1)
[2024-04-29 07:39] LABS: Magnesium 1.9 mg/dl (1.7-2.4); Phosphorus 1.2 mg/dl (2.5-4.9)
[2024-04-29] MEDS ORDERED: POTASSIUM PHOS 3 MMOL/1 ML INFUSION IV STA (07:42)
--- NOTE | 2024-04-29 07:47 | Hospitalist Progress Note ---
Date of Service April 29, 2024 Assessment & Plan (1) Peptic ulcer disease: Plan: 73-year-old female with a past medical history including thiamine deficiency, peptic ulcer disease, gastritis, adnexal mass, metabolic encephalopathy, migraines, asthma-COPD overlap syndrome, pulm hypertension, dysphagia, and food impaction of esophagus presented for concerns w/ UTI and intermittent abdominal and pelvic discomfort with family concerns for decreased PO intake/inability to gain weight and worsening issues with swallowing/feeling food being stuck recently. Also found to have elevated troponin on admission, suspected 2nd to demand ischemia from malnourishment/possible underlying GI bleed given hx severe PUD/gastritis CTAP noting findings suggesting ulcer at the distal antrum of the stomach with gastric outlet obstruction. GI , surgery consulted s/p EGD 04/[address] Nieves - EGD w/ dilatation, noted cratered ulceration in gastric antrum, unable to pass scope. Per GI, rec for gastrojejunostomy/bypass surgery possible. Pathology NEGATIVE for malignancy or H. pylori Surgery rec ok to stay/no need to transfer for surgery --recs for PPI BID life long, carafate 2-3 months (plan for 3 months). --Have converted to PO BID PPI now from gtt initially as tolerating PO On FULL LIQUID DIET and discussed w/ surgery would continue such at discharge with supplements (son got boost) and monitoring weights/status at dc WBC wnl on repeat hgb stable w/ repeat labs 10.3--> 10.0 BUN/Cr stable 20/0.68 but appears slightly more dehydrated but had been having diarrhea. Repeat cdiff given abx use/PPI obtained, NEGATIVE TOXIN and imodium available prn. Isolation precautions w/ diarrhea + gene however Phos 1.2, K 3.4 - 24mmol Kpho ordered and discussed w/ patient and son Viet at bedside regarding plan/continued full liquid diet at dc and monitoring of electrolytes in AM to see about additional oral supplements at dc and would try to accommodate w/ liquid/powder rather than pills to prevent issues. Do not suspect PPN needed as able to tolerate full liquids w/ supplementations at this time but could be considered if that changes PT/OT saw 04/28, home w/ HH planned. CM to arrange prior to dc Hopeful dc 04/30, GI/surgery f/u as indicated if ineffective with above (2) Acute UTI: Plan: Resolved, completed 5 day course Ceftriaxone. Cdiff testing negative TOXIN as above. No further abd pain/urinary sx and moving bowels (3) Gastritis: Plan: Plans for lifelong PPI BID w/ carafate 2-3 months as above. TO remain on full liquid/supp at [place] per surgery for now Will need f/u GI, surgery at [place] (4) Severe protein-calorie malnutrition: Plan: BMI 13.6, nutrition consulted/ Her son reported that he has been having her take nutritional supplements on a regular basis. History of severe PUD/gastritis as well as food impaction, see above CTAP from 02/24/2024 with significant peptic ulcer disease and gastritis -- repeat as above and plan as outlined. Speech consulted as well, tolerating diet. Aspiration precautions maintained Continues supplements w/ meals and should have continued weight checks #Generalized weakness/deconditioning multifactorial suspected, UTI/malnutrition. plan as above and PT/OT consulted/pending now that improved and will need f/u. 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 Plan Dispo: continued inpatient stay -- tolerating conversion of PPI to PO BID and full liquid diet. Remains on carafate but + diarrhea/repeating cdiff testing (can order imodium if negative)/500cc IVF to be provided for today and will monitor electrolytes in AM /continue PO supp if needed. Will start slow mag once daily in meantime. Updated danielle Llanos bedside 04/29, PT/OT rec and will plan for dc in AM pending repeat chemistries/exam Admission and Anticipated Discharge Date Admission Date: April 23, 2024 Supervising Physician Co-Signing Physician Notes The patient was not seen by me. The chart was reviewed. Case discussed with ELAN Morris. Agree with assessment and plan Subjective EVal this morning, sitting up in bed, danielle Llanos at bedside. Having a little loose stool, causing distress but no abd pain. Discussed determining cause for diarrhea, repeat cdiff in given abx use. If negative can give dose imodium and then will consider adding fiber. Discussed continuing full liquid diet at dc per surgeon, will provide info. Given diarrhea/electrolytes, planned to monitor overnight/repeat labs/oral replacement at dc and dc in AM w/ HH services. Telemetry stable and will plan to dc this afternoon given stability/ongoing stay in meantime. Did walk the halls several times yesterday as well, encouraged continued ambulation. Questions/concerns addressed at this time. Physical Exam 2 Physical Exam: General: 73yo frail/thin/malnourished sitting up in bed, son Viet at bedside, discussed diarrhea/loose stool and stool testing, NAD but anxious at times HEENT: head atraumatic, mm slightly dry but stable compared to prior exams, trachea midline Resp: even/unlabored, no wheezing/rales, on room air, SpO2 99% CV: RRR, +systolic murmur, no pitting edema/calf tenderness GI: +BS, soft/NT no steinberg MSK/Neuro: generalized weakness improving, following commands, nonfocal Psych: AOx3, cooperative, anxious at times/reassurance provided, thankful for care Results & Data Results & Data Vital Signs (Past 12 Hours) Vital Signs Temp Pulse Pulse Resp BP Pulse Ox O2 Del Method 04/29/24 03:39 36.5 C 71 18 118/75 100 Room Air 04/29/24 00:01 36.9 C 72 20 117/70 99 Room Air 04/28/24 22:05 74 04/28/24 21:30 Room Air 04/28/24 19:59 36.6 C 76 20 112/72 100 Room Air Laboratory Results 04/29/24 06:16 04/29/24 06:16 Phos 1.2 Mag 1.9 PG Care Time/CCT Total # of Minutes Spent Total Time Spent with Patient: Total time spent is greater than 50% in coordination of care (as documented) at patient's floor/unit and/or counseling patient: Coding Level of Care Code 51109 SUB INP/OBS CARE 3/50MIN Diagnoses Peptic ulcer disease K27.9 Acute UTI N39.0 Gastritis K29.70 Severe protein-calorie malnutrition E43 Elevated troponin R79.89
[2024-04-29] MEDS: POTASSIUM PHOSPHATE 24 MMOL in SODIUM CHLORIDE 0.9% 500 ML IV ONE (08:15)
[2024-04-29 11:45] LABS: Cdiff Antigen Negative; Cdiff Toxin A+B Negative Cdiff Toxin (Negative); Cdiff Toxin B Gene (2yr or >) Positive Cdiff Gene (Neg)
[2024-04-29] MEDS: SODIUM CHLORIDE 0.9% 500 ML IV SCH (13:06)
[2024-04-29] MEDS: LOPERAMIDE HCL 2 MG CAP PO PRN (13:37)
[2024-04-29] MEDS: MAGNESIUM CHLORIDE W/CALCIUM 64MG DELAYED REL TAB PO SCH (17:30)
[2024-04-29 19:09] VITALS: RESP 18
[2024-04-30 07:01] LABS: Hematocrit (blood only) 28.9 % (37.0-47.0); Hemoglobin 9.5 g/dl (12.0-16.0); Mean Corpuscular Hgb Conc 32.9 g/dL (32.0-36.0); Mean Corpuscular Volume 100.3 fL (80.0-100.0); Mean Platelet Volume 9.8 fL (9.4-12.4); Platelet Count 202 K/uL (130-400); RDW Coefficient of Variation 13.2 % (11.5-14.5); RDW Standard Deviation 48.7 fL (36.4-46.3); Red Blood Count 2.88 M/uL (4.20-5.40); White Blood Count 8.16 K/ul (4.8-10.8)
[2024-04-30 07:18] LABS: BUN Creatinine Ratio 34.3 (10-20); Calcium 8.2 mg/dl (8.6-10.3); Creatinine Clr Calc Pharmacy 40.3 ml/min; Magnesium 1.8 mg/dl (1.7-2.4); Phosphorus 1.7 mg/dl (2.5-4.9); Potassium 4.2 mmol/L (3.5-5.1)
[2024-04-30] MEDS ORDERED: SODIUM PHOSPHATE 3 MMOL/1 ML INFUSION IV STA ×2 (07:36→08:40)
--- NOTE | 2024-04-30 07:38 | Hospitalist Progress Note ---
Date of Service April 30, 2024 Assessment & Plan (1) Peptic ulcer disease: Plan: 73-year-old female with a past medical history including thiamine deficiency, peptic ulcer disease, gastritis, adnexal mass, metabolic encephalopathy, migraines, asthma-COPD overlap syndrome, pulm hypertension, dysphagia, and food impaction of esophagus presented for concerns w/ UTI and intermittent abdominal and pelvic discomfort with family concerns for decreased PO intake/inability to gain weight and worsening issues with swallowing/feeling food being stuck recently. Also found to have elevated troponin on admission, suspected 2nd to demand ischemia from malnourishment/possible underlying GI bleed given hx severe PUD/gastritis CTAP noting findings suggesting ulcer at the distal antrum of the stomach with gastric outlet obstruction. GI , surgery consulted s/p EGD 04/[address] Nieves - EGD w/ dilatation, noted cratered ulceration in gastric antrum, unable to pass scope. Per GI, rec for gastrojejunostomy/bypass surgery possible. Pathology NEGATIVE for malignancy or H. pylori Surgery rec ok to stay/no need to transfer for surgery --recs for PPI BID life long, carafate 2-3 months (plan for 3 months). --Have converted to PO BID PPI now from gtt initially as tolerating PO On FULL LIQUID DIET and discussed w/ surgery would continue such at discharge with supplements (son got boost) and monitoring weights/status at dc WBC wnl on repeat hgb stable w/ repeat labs 10.3--> 10.0 BUN/Cr stable 20/0.68 but appears slightly more dehydrated but had been having diarrhea. Repeat cdiff given abx use/PPI obtained, NEGATIVE TOXIN and imodium available prn. Isolation precautions w/ diarrhea + gene however Phos 1.2, K 3.4 - 24mmol Kpho ordered and discussed w/ patient and son Viet at bedside regarding plan/continued full liquid diet at dc and monitoring of electrolytes in AM to see about additional oral supplements at dc and would try to accommodate w/ liquid/powder rather than pills to prevent issues. Do not suspect PPN needed as able to tolerate full liquids w/ supplementations at this time but could be considered if that changes PT/OT saw 04/28, home w/ HH planned. CM to arrange prior to dc Hopeful dc 04/30, GI/surgery f/u as indicated if ineffective with above 1/27 - 9mmol na phos, k stable 4.2. Hgb 9.5 but was given 500cc NSS day prior/dilutional aspect suspected. once daily slow mag to keep stores replete on PPI therapy. cdiff negative/imodium ordered prn Will see about dc today, f/u services (2) Acute UTI: Plan: Resolved, completed 5 day course Ceftriaxone. Cdiff testing negative TOXIN as above. No further abd pain/urinary sx and moving bowels (3) Gastritis: Plan: Plans for lifelong PPI BID w/ carafate 2-3 months as above. TO remain on full liquid/supp at [place] per surgery for now Will need f/u GI, surgery at [place] (4) Severe protein-calorie malnutrition: Plan: BMI 13.6, nutrition consulted/ Her son reported that he has been having her take nutritional supplements on a regular basis. History of severe PUD/gastritis as well as food impaction, see above CTAP from 02/24/2024 with significant peptic ulcer disease and gastritis -- repeat as above and plan as outlined. Speech consulted as well, tolerating diet. Aspiration precautions maintained Continues supplements w/ meals and should have continued weight checks #Generalized weakness/deconditioning multifactorial suspected, UTI/malnutrition. plan as above and PT/OT consulted/pending now that improved and will need f/u. 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 Plan Dispo: continued inpatient stay -- tolerating conversion of PPI to PO BID and full liquid diet. Remains on carafate but + diarrhea/repeating cdiff testing (can order imodium if negative)/500cc IVF to be provided for today and will monitor electrolytes in AM /continue PO supp if needed. Will start slow mag once daily in meantime. Updated son Viet bedside 04/29, PT/OT rec and will plan for dc in AM pending repeat chemistries/exam Admission and Anticipated Discharge Date Admission Date: April 23, 2024 Results & Data Results & Data Vital Signs (Past 12 Hours) Vital Signs Temp Pulse Resp BP Pulse Ox O2 Del Method 04/29/24 22:50 36.9 C 82 18 106/61 95 Room Air 04/29/24 22:28 Room Air Laboratory Results 04/30/24 06:03 04/30/24 06:03 Phos 1.7 Mag 1.8 PG Care Time/CCT Total # of Minutes Spent Total Time Spent with Patient: Total time spent is greater than 50% in coordination of care (as documented) at patient's floor/unit and/or counseling patient: Coding Diagnoses Peptic ulcer disease K27.9 Acute UTI N39.0 Gastritis K29.70 Severe protein-calorie malnutrition E43 Elevated troponin R79.89
[2024-04-30 07:51] VITALS: TEMP 97.9; O2SAT 98
[2024-04-30] MEDS: POT PHOSPHATE MONOBASIC W/ SOD TAB PO SCH (08:25)
--- NOTE | 2024-04-30 12:20 | Discharge Summary ---
Discharge Summary Date of Service April 30, 2024 Principal Dx & Hospital Course #1 = Principal Diagnosis (1) Peptic ulcer disease: 73-year-old female with a past medical history including thiamine deficiency, peptic ulcer disease, gastritis, adnexal mass, metabolic encephalopathy, migraines, asthma-COPD overlap syndrome, pulm hypertension, dysphagia, and food impaction of esophagus presented for concerns w/ UTI and intermittent abdominal and pelvic discomfort with family concerns for decreased PO intake/inability to gain weight and worsening issues with swallowing/feeling food being stuck recently. Also found to have elevated troponin on admission, suspected 2nd to demand ischemia from malnourishment/possible underlying GI bleed given hx severe PUD/gastritis CTAP noting findings suggesting ulcer at the distal antrum of the stomach with gastric outlet obstruction. GI , surgery consulted s/p EGD 04/[address] Nieves - EGD w/ dilatation, noted cratered ulceration in gastric antrum, unable to pass scope. Per GI, rec for gastrojejunostomy/bypass surgery possible. Pathology NEGATIVE for malignancy or H. pylori Surgery rec ok to stay/no need to transfer for surgery as tolerating advancement to full liquid diet with supplementations and recs for PPI BID continued indefinitely and carafate x 3 months while have been sent. WBC normalized on repeat, afebrile. BUN/Cr stable. Did provide supplemental mag/K throughout stay, continued slow mag as well as couple more days neutraphos. + diarrhea/loose stools, but cdiff testing gene+ but negative toxin and utilized imodium as needed. No abdominal pain or nausea and wanted to avoid surgery and per discussion w/ surgeon Dr Campos, believes long standing problem and hopefully will open up with time and has been moving her bowels/tolerating diet with supplements and no need for surgery at this time. HOWEVER, was discussed if having ongoing issues w/ keeping up weight or advancement in the future in follow up may require referral to tertiary care for consideration for surgical intervention and arranged for GI/surgery w/ at discharge. Recommend patient have gastric emptying study in next month for follow up. At vt, continued PPI BID/carafate, full liquid diet/supplements and HH services have been arranged by CM at discharge. (2) Acute UTI: Resolved, completed 5 day course Ceftriaxone. No further urinary sx or abdominal pain. Did have some diarrhea but suspect from ongoing liquid diet, cdiff testing w/ negative toxin but discussed w/ ongoing PPI therapy to monitor for any worsening diarrhea/repeat testing at that time (3) Gastritis: Plans for lifelong PPI BID w/ carafate 3 months as above. TO remain on full liquid/supp at dc per surgery for now, gastric emptying study rec'd at discharge with specialty follow up (4) Severe protein-calorie malnutrition: BMI 13.6, nutrition consulted/ Her son reported that he has been having her take nutritional supplements on a regular basis. History of severe PUD/gastritis as well as food impaction, see above CTAP from 02/24/2024 with significant peptic ulcer disease and gastritis -- repeat as above and plan as outlined. Speech consulted as well, tolerating diet. Aspiration precautions maintained Continues supplements w/ meals and should have continued weight checks BMI 15.2 prior to dc and continued full liquid/supplements. Weight improved to 35.2kg. Continued nutrition w/ boost w/ meals recommended and son Viet got while visiting this weekend #Generalized weakness/deconditioning multifactorial suspected, UTI/malnutrition. plan as above and PT/OT consulted Appears improving w/ tx above and diet has been advanced and therapy recs HH services which have been arranged (5) Elevated troponin: suspect 2nd to demand ischemia from infection/dehydration/PUD above as well as dehydration Did peak and suspect 2nd to duodenal ulcer/malnutrition and pain ECHO noting mild mitral valve prolapse, moderate MR, moderate TR, RVSP 30-40mmhg Cardiology consulted, Dr Foley given hx Vero Shen Chris -- metoprolol increased to 75mg daily from 50mg [employer] and has remained on such - new rx at dc No further PAT on monitor, dc'd further telemetry. BP 125/73 prior to dc on increased dosing and no lightheaded/dizziness reported. F/u Cards at dc Notes For Next Care Provider Rec continue full liquid diet at dc per surgery for now. Rec ensure gastric emptying study next month in follow up, possible referral to tertiary center surgery if not improving To continue PPI BID INDEFINITELY, carafate 2-3 months (planning 3 months), continued supplements with meals. Monitor for worsening diarrhea/repeat cdiff testing if occurs. Weights/BMI improved prior to dc but should continue to monitor. Consider MV as well for nutritional purposes Metoprolol increased to 75mg daily per Dr Foley from cardiology, NSR maintained on repeat telemetry and was continued at vt. Medication Changes From Visit PPI BID INDEFINITELY, sent 3 month course to start Carafate QID x 3 months Protein/boost supplement with meals Neutraphos PO q8 x 14 tablets SLOW mag once daily Admission HPI Per Admitting Provider The patient is a 73-year-old female with a past medical history including thiamine deficiency, peptic ulcer disease, gastritis, adnexal mass, history of metabolic encephalopathy, migraines, asthma-COPD overlap syndrome, pulm hypertension, dysphagia, and food impaction of esophagus. Family concerns regarding decreased oral intake, and inability to gain weight. She does note significantly worsening issues with swallowing, other has noted in the food being stuck recently. Her primary concern this evening is related to concerns regarding her tract infection, and symptoms of intermittent abdominal and pelvic discomfort. Admission Exam Per Admitting Provider The patient is awake, alert and oriented 3, well developed and well nourished, normocephalic and atraumatic, lying in bed and in no acute distress. HEENT--PERRL, EOMI, mucous membranes and oropharynx dry. Neck--supple. No JVD. No bruits. Thyroid normal, trachea midline, no adenopathy. Heart--normal S1 and S2. No murmurs, rubs or gallops. Lungs--clear bilaterally, no respiratory distress, no accessory muscle use. Abdomen--normal bowel sounds and soft. Nontender. Nondistended, no hernias or masses, no organomegaly. Extremities--no cyanosis or clubbing. No edema. Dermatologic--normal skin turgor, normal color, no abnormal lymph nodes, no rash. Neurologic--cranial nerves II through XII grossly intact. Rheumatologic--normal range of motion. Psychiatric--normal affect. Discharge Exam General: 73yo frail/thin/malnourished sitting up in bed, anxious to go home/not wanting to stay, NAD and tolerating diet HEENT: head atraumatic, mm improved, compared to days prior Resp: even/unlabored, no wheezing/rales, on room air, SpO2 98% CV: RRR, +systolic murmur, no pitting edema/calf tenderness GI: +BS, soft/NT no steinberg MSK/Neuro: generalized weakness improving, following commands, nonfocal Psych: AOx3, cooperative, anxious at times/reassurance provided, thankful for care Discharge Plan Discharge Items Patient Disposition: Home - Home Health Services Reason For Visit: UTI, ELEVATED TROPONIN Discharge Diagnosis: Peptic ulcer disease, gastric stricutre Condition on Discharge: Fair Activity: Resume your previous activity Non-emergency contact: Primary Care Provider and Medical Supervisor Call non-emergency contact if: you have any medication questions, your symptoms worsen, your pain is concerning for you and you have a fever Follow-up/Referrals: Karime Beltran CRNP [Nurse Practitioner] - (Gastroenterology office will contact patient with a followup visit.) Vlad Campos DO [Physician] - Kelly Zelaya DO [Primary Care Provider] - 05/04/24 9:45 am (Hospital follow up scheduled for May 04, 2024 at 9:45am) Michelle Foley DO [Physician] - Diet: Full liquid Diet Comment: with supplements Addtl Attending Provider Instructions: You have been hospitalized for abdominal pain/nausea/vomiting/inability to tolerate oral intake and weight loss. GI and surgery were consulted and you underwent EGD which showed severe peptic ulcer disease and this has likely been a long standing issue. There was also an area of narrowing that was concerning to need surgery as recommended by GI but I discussed with surgery team and tertiary care facility and they feel you could try to continue the protonix 40mg twice daily (lifelong) and carafate with meals for 3 months and hopefully with time this will heal/open up without need for surgery and you have been eating without nausea/vomiting and I am hopeful this may be able to heal with time. You should take these medications BEFORE you eat for the best effect. Pathology did NOT report any findings for cancer at this time. You are being continued on FULL LIQUID diet at discharge and should continue oral boost supplements three times daily with meals to help keep your nutrition up. Continue to monitor your weights and follow up with primary care as well as GI at discharge in follow up and likely should have a gastric emptying study in follow up in the next month to ensure things are moving through without issue. Cardiology also saw you while in the hospital and have INCREASED your metoprolol to 75mg daily. Please return to the ER with any increased abdominal pain/nausea/inability to keep up with oral intake or for any worsening diarrhea. It has been a pleasure being a part of the medical team providing for you while you have been in the hospital. Take care! Pending Studies at Discharge: No Stand-Alone Forms: [facility], Smoking Cessation Medications and DC Order Prescriptions: New magnesium chloride [Mag 64] 64 mg Tablet,Delayed Release (Dr/Ec) 64 mg PO QAM Qty: 30 0RF Phospha 250 Neutral 250 mg Tablet 1 tab PO Q8H Qty: 14 0RF sucralfate 100 mg/mL Suspension 1 g PO QID 90 Days Qty: 3600 0RF metoprolol succinate 25 mg tablet extended release 24 hr 75 mg PO DAILY 30 Days Qty: 90 0RF Continued guaifenesin [Mucinex] 600 mg tablet extended release 12hr 600 mg PO BID PRN (Reason: congestion) Qty: 60 1RF Rx Instructions: Take 1 tab p.o. twice a day for 7 days and then as needed (DME) Flutter Valve Device See Rx Instructions .MEDSUPPLY Qty: 1 0RF Rx Instructions: Use it every 6 hours when awake. sumatriptan succinate 100 mg Tablet 100 mg PO UD PRN (Reason: Migraine Headache) Rx Instructions: Take for severe migraine, no more than 2 in 24 hours fluticasone furoate-vilanterol [Breo Ellipta] 100-25 mcg/dose blister with device 1 inh INHALATION DAILY pantoprazole 40 mg Tablet,Delayed Release (Dr/Ec) 40 mg PO BID Qty: 60 3RF Discontinued metoprolol succinate 100 mg Tablet Extended Release 24 Hr 50 mg PO DAILY Qty: 0 0RF Discharge Orders: Discharge Order (Routine); Ordered 04/30/24 Ordered By: Kady Diamond Admission Data Admit Date/Time: 04/23/24 21:55 Attending Provider: Tyrell Gifford Admit Provider: Chepe Mckeon Primary Care Provider: Kelly Zelaya Other Providers: Chepe Mckeon; Elvis Nieves; Michelle Foley; Vlad Campos; [facility] Fax Other Interventions: Discharge Summary Assessment (RN) Last Done: 04/30/24 13:41 Hospital Stay Data Consultations 04/23/24 21:25 ED Decision to Admit Stat 04/23/24 21:55 Consult Gastroenterology Routine 04/24/24 10:54 Consult Cardiology Routine 04/24/24 11:19 Consult General Surgery Routine Procedures Performed Operation Date: 04/25/24 07:50 Actual Procedures p EGD Biopsy Dilatation(Not Applicable) - Elvis Nieves MD Stomach noted old vegetable debris throughout fundus, enlarged, fairly large cratered ulcer in body of the stomach with some dark pigmented material at the base though no visible vessels. 5-6 biopsies taken of rolling edge of the ulcer In prepyloric area, retained veg material obscuring pylorus. Req removal. Double pylorus sign, which believed was cratered ulcer and subsequent negative channel. Both of these were significantly narrowed and somewhat obscured by inflammatory tissue and retained vision material precluding safe advancement of the scope. Multiple biopsies of rolling edges of ulceration and isthmus between 2 channels submitted for histology. Benign-appearing esophageal stenoses. Dilated with 10-11-12mm x 8 micro-tech tapide balloon (to a maximum balloon size of 10mm. No specimens collected. Recommendations: Await pathology (negative for malignancy), rec possible req gastrojejunostomy, liquid diet only. Diagnostic Imagining Performed Chest X-Ray 04/23/24 17:42 INDICATION: Weakness. TECHNIQUE: Frontal radiograph of the chest. COMPARISON: Radiograph from 02/22/2024. FINDINGS: The cardiomediastinal silhouette and pulmonary vasculature appear within normal limits. The lungs appear hyperinflated. Bilateral apical pleural scarring. No infiltrate, pleural effusion or pneumothorax. No acute osseous abnormality evident. IMPRESSION: No acute cardiopulmonary process. Findings likely related to COPD. Electronically signed by Phani Yi 04-23-2024 6:19 PM Abdomen/Pelvis CT 04/24/24 06:[address] WITH IV AND ORAL CONTRAST CT DOSE: 250.56 mGy.cm HISTORY: Suspected Gastric Outlet Obstr from PUD TECHNIQUE: Multiaxial CT images of the abdomen and pelvis were performed following the IV administration of 90 cc of Optiray and oral contrast. A dose lowering technique was utilized adhering to the principles of ALARA. COMPARISON STUDY: 02/24/2024 FINDINGS: ABDOMEN: There is wall thickening and enhancement at the distal antrum of the stomach suggesting ulcer. There is high density material layering within the stomach which likely represents layering barium. Stomach is distended with fluid otherwise consistent with gastric outlet obstruction. There is a tiny cyst in the liver. Otherwise the liver, gallbladder, spleen, and adrenal glands are unremarkable. There is mild pancreatic atrophy. There are scattered atherosclerotic calcifications. No abdominal aortic aneurysm. Pelvis: Urinary bladder is nondistended. Uterus and adnexa are grossly unremarkable. There is mild retained stool. No bowel inflammation or obstruction. No free fluid, free air, or abscess. No enlarged adenopathy. Osseous structures: There is moderate lumbar degenerative disc disease. IMPRESSION: 1. Findings suggesting ulcer at the distal antrum of the stomach with gastric outlet obstruction. 2. High density material in the stomach likely represents retained barium. Underlying gastric hemorrhage is not excluded. Suggest clinical correlation. 3. Otherwise as described. ACT 112: Negative or not required by law. The above report was generated using voice recognition software. It may contain grammatical, syntax or spelling errors. Electronically signed by: Mikey Lovell M.D. 04/24/2024 10:46 AM Pending Results Patient Have Any Pending Studies at Discharge: No Discharge Instructions Given to Patient (Per Discharging Provider) You have been hospitalized for abdominal pain/nausea/vomiting/inability to tolerate oral intake and weight loss. GI and surgery were consulted and you underwent EGD which showed severe peptic ulcer disease and this has likely been a long standing issue. There was also an area of narrowing that was concerning to need surgery as recommended by GI but I discussed with surgery team and tertiary care facility and they feel you could try to continue the protonix 40mg twice daily (lifelong) and carafate with meals for 3 months and hopefully with time this will heal/open up without need for surgery and you have been eating without nausea/vomiting and I am hopeful this may be able to heal with time. You should take these medications BEFORE you eat for the best effect. Pathology did NOT report any findings for cancer at this time. You are being continued on FULL LIQUID diet at discharge and should continue oral boost supplements three times daily with meals to help keep your nutrition up. Continue to monitor your weights and follow up with primary care as well as GI at discharge in follow up and likely should have a gastric emptying study in follow up in the next month to ensure things are moving through without issue. Cardiology also saw you while in the hospital and have INCREASED your metoprolol to 75mg daily. Please return to the ER with any increased abdominal pain/nausea/inability to keep up with oral intake or for any worsening diarrhea. It has been a pleasure being a part of the medical team providing for you while you have been in the hospital. Take care! Total Time Total Time Spent Total Time Spent (In Minutes): 60 Coding Level of Care Code 80492 INP/OBS DISCH >30 MIN Diagnoses Peptic ulcer disease K27.9 Acute UTI N39.0 Gastritis K29.70 Severe protein-calorie malnutrition E43 Elevated troponin R79.89
[2024-04-30 13:42] VITALS: BP 125/73; PULSE 63
== END 2024-04-30 15:45 | disposition home health service (06) | DRG 380 ==
LOC: ED 16:58 → 2N 21:55 → SUATTDRO 21:55 → 2N 04-24 01:12
DX: I45.6 Pre-excitation syndrome; E43 Unspecified severe protein-calorie malnutrition; Z88.1 Allergy status to other antibiotic agents; N39.0 Urinary tract infection, site not specified; Z88.0 Allergy status to penicillin; Z88.2 Allergy status to sulfonamides; I27.20 Pulmonary hypertension, unspecified; K31.1 Adult hypertrophic pyloric stenosis; E86.0 Dehydration; K29.70 Gastritis, unspecified, without bleeding; K25.9 Gastric ulcer, unspecified as acute or chronic, without hemorrhage or perforation; J44.89 Other specified chronic obstructive pulmonary disease; K22.2 Esophageal obstruction; I24.89 Other forms of acute ischemic heart disease; Z68.1 Body mass index [BMI] 19.9 or less, adult